=== PATIENT | female | born 1960 | race African-American/Black ===

== ENCOUNTER 2017-03-11 11:06 | Inpatient (IN) | payer OTHER ==
--- NOTE | 2017-03-11 11:23 | PDOC ---
ED Treatment Course - LABORATORY CBC & Chemistry Diagram: 03/11/17 13:40 03/11/17 13:30 Medical Decision Making - Medical Decision Making 03/11/17 15:43 Pt seen by the Advanced Practice Provider under my direct supervision Ancillary studies reviewed I agree with plan as outlined by the Advanced Practice Provider *DC/Admit/Observation/Transfer Diagnosis at time of Disposition: Bradycardia, Dizziness, Elevated CK
[2017-03-11] MEDS ORDERED: SODIUM CHLORIDE 1,000 ML IV STA ×2 (13:00→14:41)
[2017-03-11 13:50] LABS: BASOPHIL 0.6 % (0-2.0); EOSINOPHIL 0.4 % (0-4.5); MCH 31.5 pg (25.7-33.7); MEAN CELL VOLUME 92.5 fl (80-96); MEAN PLT VOLUME 7.2 fl (7.5-11.1); NEUTROPHILS 70.5 % (42.8-82.8); PLATELET COUNT 294 K/MM3 (134-434)
[2017-03-11 14:19] LABS: ALBUMIN 4.4 g/dl (3.4-5.0); ANION GAP 11 (8-16); BILIRUBIN,TOTAL 0.7 mg/dL (0.2-1.0); CALCIUM 9.9 mg/dL (8.5-10.1); CO2 27 mmol/L (21-32); CREATININE 0.9 mg/dL (0.55-1.02); GLUCOSE,RANDOM 83 mg/dL (74-106); MAGNESIUM 2.8 mg/dL (1.8-2.4); SGOT/AST 35 U/L (15-37); SGPT/ALT 29 U/L (12-78); TOT PROT 8.1 g/dl (6.4-8.2)
[2017-03-11 14:22] LABS: ALK PHOS 79 U/L (45-117); CPK 797 IU/L (26-192); TROPONIN I < 0.02 ng/ml (0.00-0.05)
--- NOTE | 2017-03-11 14:40 | PDOC ---
History of Present Illness - General Chief Complaint: Pain, Acute Stated Complaint: FLANK PAIN Time Seen by Provider: 03/11/17 11:22 History Source: Patient Exam Limitations: No Limitations - History of Present Illness Initial Comments: 03/11/17 13:34 56-year-old female with no past medical history presents the ED with complaints of increased depression, fatigue, insomnia, and now feeling dizzy. Patient states although she has not had any recent stressors she is now 3 to grieve her 's which occurred one year ago. Patient states does see a therapist and takes no medication for the above. Patient denies feelings to hurt herself or others or feelings of hopelessness. Patient does state today while standing up at home she started to feel dizzy causing her to fall backwards and striking her left flank area. Patient states did not hit her head nor did she states the but is very tearful here in the ER stating she does not feel good. Timing/Duration: getting worse Severity: moderate Associated Symptoms: reports: loss of appetite, malaise, weakness Past History - Travel Traveled outside of the country in the last 30 days: No - Past Medical History Allergies/Adverse Reactions: Allergies Allergy/AdvReac Type Severity Reaction Status Date / Time No Known Allergies Allergy Verified 03/11/17 11:58 Home Medications: Ambulatory Orders NK [No Known Home Medication] 03/11/17 Anemia: Yes (TAKES IRON PILLS ) Asthma: No Cancer: No Cardiac Disorders: No CVA: No COPD: No CHF: No Dementia: No Diabetes: No GI Disorders: No Disorders: No HTN: No Hypercholesterolemia: Yes (CONTROILLED) Kidney Stones: No Liver Disease: No Seizures: No Thyroid Disease: No - Surgical History Abdominal Surgery: No Appendectomy: No Cardiac Surgery: No Cholecystectomy: No Lung Surgery: No Neurologic Surgery: No Orthopedic Surgery: Yes (Knee sx 1968. Metal brace on hips 2003) - Reproductive History PID: No - Suicide/Smoking/Psychosocial Hx Smoking History: Current every day smoker Have you smoked in the past 12 months: Yes Number of Cigarettes Smoked Daily: 20 If you are a former smoker, when did you quit?: 08/19/2011 Information on smoking cessation initiated: No 'Breaking Loose' booklet given: 07/27/14 Hx Alcohol Use: No Drug/Substance Use Hx: No Substance Use Type: Alcohol, Cocaine Hx Substance Use Treatment: Yes ([facility]) Patient Lives Alone: No Lives with/in: children Review of Systems - Review of Systems Able to Perform ROS?: Yes Constitutional: Yes: Loss of Appetite, Weakness HEENTM: No: Symptoms Reported Respiratory: No: Symptoms reported Cardiac (ROS): Yes: Lightheadedness ABD/GI: No: Symptoms Reported : Yes: Flank Pain (left) Musculoskeletal: No: Symptoms Reported Integumentary: No: Symptoms Reported Neurological: Yes: Weakness, Dizziness Endocrine: No: Symptoms Reported Hematologic/Lymphatic: Yes: Anemia (pt denied medical hx but noted in chart) *Physical Exam - Vital Signs Last Vital Signs Temp Pulse Resp BP Pulse Ox 98.6 F 58 L 18 127/85 100 03/11/17 11:06 03/11/17 11:06 03/11/17 11:06 03/11/17 11:06 03/11/17 11:06 - Physical Exam General Appearance: Yes: Nourished, Appropriately Dressed. No: Apparent Distress HEENT: positive: Normal Voice. negative: Pale Conjunctivae Neck: positive: Normal Thyroid, Supple Respiratory/Chest: positive: Lungs Clear, Normal Breath Sounds. negative: Respiratory Distress, Accessory Muscle Use Cardiovascular: positive: Regular Rhythm, Regular Rate. negative: Murmur Gastrointestinal/Abdominal: positive: Soft. negative: Tenderness Musculoskeletal: negative: CVA Tenderness (R), CVA Tenderness (L) Extremity: positive: Normal Capillary Refill. negative: Pedal Edema Integumentary: positive: Normal Color, Warm, Moist Neurologic: positive: Motor Strength 5/5 (ambulatory). negative: Normal Mood/ Affect (tearful but with good eye contact) Heart Score/ECG Review - History History: Slightly suspicious - Electrocardiogram EKG: Normal - Age Age: 45-65 - Risk Factors Based on the list above the patient has:: No risk factors known - Troponin Troponin: </= normal limit - Score Heart Score - Total: 1 - ECG Impressions Bradycardia: Yes (rate 42.) ED Treatment Course - LABORATORY CBC & Chemistry Diagram: 03/11/17 13:40 03/11/17 13:30 - ADDITIONAL ORDERS Additional order review: Laboratory Results 03/11/17 13:30 Sodium 140 Potassium 4.4 Chloride 102 Carbon Dioxide 27 Anion Gap 11 BUN 11 D Creatinine 0.9 Creat Clearance w eGFR > 60 Random Glucose 83 Calcium 9.9 Magnesium 2.8 H Total Bilirubin 0.7 D AST 35 ALT 29 Alkaline Phosphatase 79 Creatine Kinase 797 H Troponin I < 0.02 Total Protein 8.1 Albumin 4.4 03/11/17 13:40 RBC 4.33 MCV 92.5 MCHC 34.0 RDW 13.0 MPV 7.2 L D Neutrophils % 70.5 Lymphocytes % 23.4 Monocytes % 5.1 Eosinophils % 0.4 Basophils % 0.6 - RADIOLOGY Radiology Studies Ordered: Category Date Time Status CHEST X-RAY PORTABLE* [RAD] Stat Radiology 03/11/17 13:00 Completed - Medications Given in the ED: ED Medications Discontinued Medications Generic Name Dose Route Start Last Admin Trade Name Freq PRN Reason Stop Dose Admin Sodium Chloride 1,000 mls @ 1,000 mls/hr 03/11/17 13:00 03/11/17 13:38 Normal Saline - IV 03/11/17 13:59 1,000 mls/hr ASDIR STA Administration Medical Decision Making - Medical Decision Making 03/11/17 13:38 Patient here with complaints of increasing weakness, dizziness and tearful this. Patient states today was standing up when she became dizzy causing her to fall backwards hitting been table with her left flank region. Patient then had no reproducible pain but appeared tearful and crying with tears. When questioned patient states didn't initially greive her but is now but has been speaking to her therapist about this who she sees every 1- 2 weeks. Patient was ordered for cardiac workup including labs, CBC, comp, mag, urine EKG and chest x-ray along with IV fluids. 03/11/17 14:40 Laboratory Tests 03/11/17 03/11/17 13:30 13:40 WBC 6.0 D Hgb 13.6 Hct 40.0 Plt Count 294 Neutrophils % 70.5 Sodium 140 Potassium 4.4 Chloride 102 Carbon Dioxide 27 Anion Gap 11 Creatinine 0.9 Creat Clearance w eGFR > 60 Calcium 9.9 Magnesium 2.8 H Total Bilirubin 0.7 D AST 35 ALT 29 Alkaline Phosphatase 79 Creatine Kinase 797 H Creatine Kinase Index Pending CK-MB (CK-2) Pending Troponin I < 0.02 Chest x-ray negative. Patient be ordered for second bag of IV fluid for elevation and CKs 10/10/17 15:29 In light of patient's symptom of dizziness, Elevated CK and heart rate ranging anywhere from 40-58 patient will be admitted to telemetry inpatient under Dr. francis with consultation to Dr. Berrios. Laboratory Tests 03/11/17 13:30 TSH 0.22 L *DC/Admit/Observation/Transfer Diagnosis at time of Disposition: Bradycardia, Dizziness, Elevated CK - Discharge Dispostion Admit: Yes
[2017-03-11 15:10] LABS: THYROID STIMULATING HORMONE 0.22 uIU/ml (0.358-3.74)
[2017-03-11 15:51] LABS: URINE APPEARANCE CLEAR; URINE BILIRUBIN NEGATIVE (NEGATIVE); URINE BLOOD 2+ (NEGATIVE); URINE COLOR STRAW; URINE GLUCOSE (UA) NEGATIVE (NEGATIVE); URINE KETONE NEGATIVE (NEGATIVE); URINE NITRITE NEGATIVE (NEGATIVE); URINE PROTEIN NEGATIVE (NEGATIVE); URINE UROBILINOGEN NEGATIVE mg/dL (0.2-1.0)
[2017-03-11 15:56] LABS: URINE HYALINE CAST 1 /lpf; URINE RBC 2 /hpf (0-3); URINE WBC 14 /hpf (3-5)
--- NOTE | 2017-03-11 16:06 | HP ---
Admitting History and Physical - Admission History of Present Illness: 56-year-old female with no past medical history presents the ED with complaints of increased depression, fatigue, insomnia, and now feeling dizzy. Patient states although she has not had any recent stressors she is now 3 to grieve her 's which occurred one year ago. Patient states does see a therapist and takes no medication for the above. Patient denies feelings to hurt herself or others or feelings of hopelessness. Patient does state today while standing up at home she started to feel dizzy causing her to fall backwards and striking her left flank area. Patient states did not hit her head nor did she states the but is very tearful here in the ER stating she does not feel good. per patient for last one week feeling very tired no energy today she got up the bed and felt dizzy and fell no loss of consciousnes just hit her flank she claims that she sometime experiences palpitations which are intermittent History Source: Patient - Past Medical History ...LMP: 09/02/10 - Smoking History Smoking history: Current every day smoker Have you smoked in the past 12 months: Yes Aproximately how many cigarettes per day: 20 If you are a former smoker, when did you quit?: 08/19/2011 - Alcohol/Substance Use Hx Alcohol Use: No Home Medications - Allergies Allergies/Adverse Reactions: Allergies Allergy/AdvReac Type Severity Reaction Status Date / Time No Known Allergies Allergy Verified 03/11/17 11:58 - Home Medications Home Medications: Ambulatory Orders NK [No Known Home Medication] 03/11/17 Family Disease History - Family Disease History Family Disease History: Other: Father (alcoholic), Mother (alcoholic, from leukemia) Review of Systems - Review of Systems Cardiovascular: reports: No Symptoms Respiratory: reports: No Symptoms Physical Examination Vital Signs: Vital Signs Temperature 98.6 F 03/11/17 11:06 Pulse Rate 58 L 03/11/17 11:06 Respiratory Rate 18 03/11/17 11:06 Blood Pressure 127/85 03/11/17 11:06 O2 Sat by Pulse Oximetry (%) 100 03/11/17 11:06 Constitutional: Yes: Calm, Thin Cardiovascular: Yes: Regular Rate and Rhythm, Bradycardia, S1, S2 Respiratory: Yes: CTA Bilaterally Gastrointestinal: Yes: Normal Bowel Sounds, Soft Edema: No Neurological: Yes: Alert, Oriented Problem List - Problems (1) Bradycardia Assessment/Plan: check tsh echo tele cardio Code(s): R00.1 - BRADYCARDIA, UNSPECIFIED (2) Dizziness Assessment/Plan: carotid doppler r/o arrythmia Code(s): R42 - DIZZINESS AND GIDDINESS
[2017-03-11 18:23] VITALS: BMI 22.8
[2017-03-11] MEDS ORDERED: FLU VACCINE QUAD 60 MCG/0.5 ML (MDV 17-18) IM ONE (18:23)
[2017-03-11 19:18] LABS: URINE LEUK ESTERASE 3+ (NEGATIVE)
--- NOTE | 2017-03-11 21:41 | EKG ---
Test Reason : Blood Pressure : / mmHG Vent. Rate : 042 BPM Atrial Rate : 042 BPM P-R Int : 170 ms QRS Dur : 084 ms QT Int : 486 ms P-R-T Axes : 080 026 012 degrees QTc Int : 405 ms MARKED SINUS BRADYCARDIA BASELINE ARTIFACT NONSPECIFIC T WAVE ABNORMALITY ABNORMAL ECG NO PREVIOUS ECGS AVAILABLE REPEAT EKG IF CLINICALLY INDICATED Confirmed by JOSEFA SIMMS MD ([id number]) on 03/11/2017 9:41:33 PM Referred By: Confirmed By:JOSEFA SIMMS MD
[2017-03-12] MEDS ORDERED: ACETAMINOPHEN 325 MG TABLET (FP) PO ONE (02:30)
[2017-03-12 06:35] LABS: MCH 31.3 pg (25.7-33.7); MCHC 33.8 g/dl (32.0-36.0); MEAN CELL VOLUME 92.4 fl (80-96); MEAN PLT VOLUME 7.4 fl (7.5-11.1); PLATELET COUNT 235 K/MM3 (134-434); RDW 13.1 % (11.6-15.6); WHITE BLOOD COUNT 5.6 K/mm3 (4.0-10.0)
[2017-03-12 07:23] LABS: ALBUMIN 3.1 g/dl (3.4-5.0); ANION GAP 8 (8-16); CALCIUM 8.4 mg/dL (8.5-10.1); CO2 24 mmol/L (21-32); CREATININE 0.8 mg/dL (0.55-1.02); GLUCOSE,RANDOM 89 mg/dL (74-106); MAGNESIUM 2.4 mg/dL (1.8-2.4); SGOT/AST 25 U/L (15-37); SGPT/ALT 21 U/L (12-78); TOT PROT 5.8 g/dl (6.4-8.2)
[2017-03-12 07:28] LABS: ALK PHOS 57 U/L (45-117); BILIRUBIN,TOTAL 0.5 mg/dL (0.2-1.0); CHOLESTEROL 195 mg/dL (50-200); PHOSPHOROUS 3.1 mg/dL (2.5-4.9)
--- NOTE | 2017-03-12 08:35 | PN ---
Progress Note, Physician History of Present Illness: feels better no cp - Objective Vital Signs: Vital Signs Temperature 98.7 F 03/12/17 06:00 Pulse Rate 67 03/12/17 06:00 Respiratory Rate 17 03/12/17 06:00 Blood Pressure 111/74 03/12/17 06:00 O2 Sat by Pulse Oximetry (%) 97 03/11/17 21:00 Cardiovascular: Yes: Bradycardia, S1, S2 Respiratory: Yes: Regular, CTA Bilaterally Gastrointestinal: Yes: Normal Bowel Sounds, Soft Neurological: Yes: Alert, Oriented Labs: CBC, BMP 03/12/17 06:05 03/12/17 06:05 Problem List - Problems (1) Bradycardia Assessment/Plan: TELEMTRY--RATE DOWN TO 30'S CARDIO ECHO FOLLOW EKG HOLTER TSH--LOW--.17 Code(s): R00.1 - BRADYCARDIA, UNSPECIFIED (2) Dizziness Assessment/Plan: MAYBE DUE TO ABOVE CT OF HEAD Code(s): R42 - DIZZINESS AND GIDDINESS (3) Elevated CK Assessment/Plan: REPEAT MAYBE DUE TO FALL Code(s): R74.8 - ABNORMAL LEVELS OF OTHER SERUM ENZYMES (4) Hyperthyroidism Assessment/Plan: T4 AND T3 Code(s): E05.90 - THYROTOXICOSIS, UNSP WITHOUT THYROTOXIC CRISIS OR STORM
[2017-03-12 09:33] LABS: CPK 612 IU/L (26-192); TROPONIN I < 0.02 ng/ml (0.00-0.05)
[2017-03-12 10:28] LABS: FREE T4 1.02 ng/dl (0.76-1.46)
--- NOTE | 2017-03-12 10:54 | EKG ---
Test Reason : Blood Pressure : / mmHG Vent. Rate : 051 BPM Atrial Rate : 051 BPM P-R Int : 188 ms QRS Dur : 094 ms QT Int : 438 ms P-R-T Axes : 055 036 030 degrees QTc Int : 403 ms SINUS BRADYCARDIA INCOMPLETE RIGHT BUNDLE BRANCH BLOCK BORDERLINE ECG WHEN COMPARED WITH ECG OF 11-MAR-2017 14:32, NO SIGNIFICANT CHANGE WAS FOUND Confirmed by LEVAR RICK, SKYE ([id number]) on 03/12/2017 10:53:53 AM Referred By: FORREST HOFF Confirmed By:SKYE CRISTOBAL MD
--- NOTE | 2017-03-12 15:02 | CON.CARD ---
Consult Consult Specialty:: cardiology Referred by:: rubén Reason for Consultation:: dizziness - History of Present Illness Chief Complaint: dizziness History of Present Illness: 56-year-old female with no past medical history presents the ED with dizziness and fall. As per patient, she was walking with her friend and fell backwards and hit her flank. Denies any chest pain or palpitations. No sob. No pnd, orthopnea, or edema. No symptoms since presentation. Has been depressed recently due to 1 year anniversary since 's and grieving. complaints of increased depression, fatigue, insomnia, and now feeling dizzy. - History Source History Provided By: Patient - Past Medical History ...LMP: 09/02/10 - Alcohol/Substance Use Hx Alcohol Use: No - Smoking History Smoking history: Current every day smoker Have you smoked in the past 12 months: Yes Aproximately how many cigarettes per day: 20 If you are a former smoker, when did you quit?: 08/19/2011 Home Medications - Allergies Allergies/Adverse Reactions: Allergies Allergy/AdvReac Type Severity Reaction Status Date / Time No Known Allergies Allergy Verified 03/11/17 11:58 - Home Medications Home Medications: Ambulatory Orders NK [No Known Home Medication] 03/11/17 Family Disease History - Family Disease History Family Disease History: Other: Father (alcoholic), Mother (alcoholic, from leukemia) Vital Signs: Vital Signs Temperature 98.2 F 03/12/17 08:00 Pulse Rate 64 03/12/17 08:00 Respiratory Rate 14 03/12/17 09:00 Blood Pressure 116/54 03/12/17 08:00 O2 Sat by Pulse Oximetry (%) 97 03/12/17 09:00 Constitutional: Yes: No Distress Neck: Yes: WNL Respiratory: Yes: CTA Bilaterally Gastrointestinal: Yes: Normal Bowel Sounds, Soft Cardiovascular: Yes: Regular Rate and Rhythm JVD: No Carotid Bruit: No Heart Sounds: Yes: S1, S2 Murmur: No: Systolic Murmur Extremities: Yes: WNL - Other Data Labs, Other Data: CBC, BMP 03/12/17 06:05 03/12/17 06:05 Troponin, BNP 03/12/17 03/12/17 06:05 06:05 Troponin I < 0.02 Cancelled Troponin, BNP 03/12/17 03/12/17 06:05 06:05 Troponin I < 0.02 Cancelled Imaging - Results Chest X-ray: Report Reviewed Cat Scan: Report Reviewed EKG: Image Reviewed Problem List - Problems (1) Dizziness Code(s): R42 - DIZZINESS AND GIDDINESS Assessment/Plan 56-year-old female with no past medical history presents the ED with dizziness and fall 1) Dizziness/bradycardia -Has been asymptomatic since admission. CT head no acute m/s/b Carotid duplex no stenosis TSH abnormal f/u with pmd EKG with sinus bradycardia at 42bpm, nl axis, nl st segments. Tele sinus sonia but no pauses. Walked patient in hallway and HR went to 85 with mild walking. Plan for echocardiogram
[2017-03-12 19:54] LABS: CPK 652 IU/L (26-192); TROPONIN I < 0.02 ng/ml (0.00-0.05)
[2017-03-13] MEDS: ALBUTEROL SO4 2.5/IPRATROPIUM 0.5 INH SOL 3 ML VIAL.NEB. NEB SCH ×3 (00:07→11:31)
--- NOTE | 2017-03-13 08:24 | DS ---
Physical Examination Vital Signs: Vital Signs Temperature 98.7 F 03/13/17 05:30 Pulse Rate 47 L 03/13/17 05:30 Respiratory Rate 20 03/13/17 05:30 Blood Pressure 103/50 03/13/17 05:30 O2 Sat by Pulse Oximetry (%) 98 03/12/17 21:00 Findings/Remarks: NO COMPLAINTS STATES FEELS WELL Cardiovascular: Yes: Regular Rate and Rhythm Respiratory: Yes: Regular, CTA Bilaterally Gastrointestinal: Yes: Normal Bowel Sounds, Soft Labs: CBC, BMP 03/12/17 06:05 03/12/17 06:05 Discharge Summary Reason For Visit: DIZZINESS,BRADYCARDIA Current Active Problems Bradycardia (Acute) Dizziness (Acute) Elevated CK (Acute) Hyperthyroidism (Acute) Hospital Course: 56-year-old female with no past medical history presents the ED with complaints of increased depression, fatigue, insomnia, and now feeling dizzy. Patient states although she has not had any recent stressors she is now 3 to grieve her 's which occurred one year ago. Patient states does see a therapist and takes no medication for the above. Patient denies feelings to hurt herself or others or feelings of hopelessness. Patient does state today while standing up at home she started to feel dizzy causing her to fall backwards and striking her left flank area. Patient states did not hit her head nor did she states the but is very tearful here in the ER stating she does not feel good. per patient for last one week feeling very tired no energy today she got up the bed and felt dizzy and fell no loss of consciousnes just hit her flank she claims that she sometime experiences palpitations which are intermittent History Source: Patient - Past Medical History ...LMP: 09/02/10 - Smoking History Smoking history: Current every day smoker Have you smoked in the past 12 months: Yes Aproximately how many cigarettes per day: 20 If you are a former smoker, when did you quit?: 08/19/2011 - Alcohol/Substance Use Hx Alcohol Use: No - Problems (1) Bradycardia Assessment/Plan: TELEMTRY--RATE DOWN TO 30'S--asymptomatic AWAIT HOLTER CARDIO NOTED ECHO NL LV TSH--LOW--.17 Code(s): R00.1 - BRADYCARDIA, UNSPECIFIED (2) Dizziness Assessment/Plan: MAYBE DUE TO ABOVE CT OF HEAD NEGATIVE Code(s): R42 - DIZZINESS AND GIDDINESS (3) Elevated CK Assessment/Plan: REPEAT MAYBE DUE TO FALL Code(s): R74.8 - ABNORMAL LEVELS OF OTHER SERUM ENZYMES (4) Hyperthyroidism Assessment/Plan: T4 AND T3 Code(s): E05.90 - THYROTOXICOSIS, UNSP WITHOUT THYROTOXIC CRISIS OR STORM PT WILL NEED FOLLOW UP WITH PMD AND MONITORING OUTPATIENT--THIS WAS DISCUSSED WITH THE PATIENT Condition: Improved - Instructions Diet, Activity, Other Instructions: FOLLOW UP WITH YOUR DOCTOR YOU WILL NEED FURTHER FOLLOW UP OF LABS AND TESTING ON YOUR THYROID AND CK YOU WILL NEED TO FOLLOW UP WITH CARDIOLOGY Disposition: HOME - Home Medications Comprehensive Discharge Medication List: Ambulatory Orders NK [No Known Home Medication] 03/11/17
--- NOTE | 2017-03-13 11:55 | EKG ---
Test Reason : Blood Pressure : / mmHG Vent. Rate : 061 BPM Atrial Rate : 061 BPM P-R Int : 182 ms QRS Dur : 092 ms QT Int : 410 ms P-R-T Axes : 045 021 041 degrees QTc Int : 412 ms SINUS RHYTHM WITH MARKED SINUS ARRHYTHMIA OTHERWISE NORMAL ECG WHEN COMPARED WITH ECG OF 12-MAR-2017 08:43, NO SIGNIFICANT CHANGE WAS FOUND Confirmed by MARTA WOOD MD ([id number]) on 03/13/2017 11:55:29 AM Referred By: Confirmed By:MARTA WOOD MD
--- NOTE | 2017-03-13 12:13 | HOL ---
Hook-up date: 2017-03-12 12:07:00 Duration: 21:46:00 Test Indications: Medications: 33734 QRS complexes 97 Ventricular ectopics which represent <1 % of total QRS comp. 20 Supraventricular ectopics which represent <1 % of total QRS comp. * Paced QRS complexs which represent % of total QRS comp. * % of Time Classified as Noise VENTRICULAR ECTOPY 97 Isolated 0 Bigeminal Cycles 0 Couplets 0 Runs 0 Beats in Runs * Beats LONGEST at * BPM at :: -- * Beats FASTEST at * BPM at :: -- SUPRAVENTRICULAR ECTOPY 20 Isolated 0 Couplets 0 Runs 0 Beats in Runs * Beats LONGEST at * BPM at :: -- * Beats FASTEST at * BPM at :: -- HEART RATES 37 MIN at 02:56:18 2017-03-13 64 AVG 101 MAX at 07:23:43 2017-03-13 LONGEST RR 2.064 secs at 09:49:32 2017-03-13 SCANNED BY HSERRI MUNOZ ON 03/13/17 1. Baseline sinus rhythm with avg hr 64 and range 37-101. 2. No significant bradycardia/pauses. 3. Rare isolated PVCs and PACs. 4. No VT, VF, afib, aflutter, svt. 5. No diary submitted. Confirmed by NINA RICK, MARTA ([id number]) on 03/13/2017 12:13:09 PM Referred By: LESLY MARTINEZ DR Overread By: MARTA WOOD MD
--- NOTE | 2017-03-13 12:30 | PN ---
Progress Note, Physician Chief Complaint: Some c/o chest pain last night described as chest pressure in center of chest. Like someone squeezing. Had chest CT negative for PE Tele: sinus bradycardia which responds to ambulation to 80s - Current Medication List Current Medications: Active Medications Albuterol/Ipratropium (Duoneb -) 1 amp NEB QIDR EBEN Last Admin: 03/13/17 11:31 Dose: Not Given - Objective Vital Signs: Vital Signs Temperature 98.2 F 03/13/17 08:00 Pulse Rate 62 03/13/17 08:00 Respiratory Rate 20 03/13/17 08:00 Blood Pressure 114/64 03/13/17 08:00 O2 Sat by Pulse Oximetry (%) 98 03/13/17 08:00 Constitutional: Yes: No Distress Cardiovascular: Yes: Regular Rate and Rhythm, S2. No: Bruit, JVD Respiratory: Yes: CTA Bilaterally Gastrointestinal: Yes: Normal Bowel Sounds, Soft Edema: No Labs: CBC, BMP 03/12/17 06:05 03/12/17 06:05 Problem List - Problems (1) Dizziness Code(s): R42 - DIZZINESS AND GIDDINESS (2) Bradycardia Code(s): R00.1 - BRADYCARDIA, UNSPECIFIED Assessment/Plan 56-year-old female with no past medical history presents the ED with dizziness and fall 1) Dizziness/bradycardia -Has been asymptomatic since admission. CT head no acute m/s/b Carotid duplex no stenosis TSH abnormal f/u with pmd EKG with sinus bradycardia at 42bpm, nl axis, nl st segments. Tele sinus sonia but no pauses. Walked patient in hallway and HR went to 85 with mild walking. Echocardiogram nl lvef and mild TR with trace to mild MR 2) Chest pain Consider stress testing. Would exercise during test to document chronotropic response to exercise
[2017-03-13 12:56] LABS: BASOPHIL 0.4 % (0-2.0); EOSINOPHIL 1.6 % (0-4.5); MCH 31.1 pg (25.7-33.7); MCHC 33.7 g/dl (32.0-36.0); MEAN CELL VOLUME 92.1 fl (80-96); MEAN PLT VOLUME 7.3 fl (7.5-11.1); NEUTROPHILS 54.6 % (42.8-82.8); PLATELET COUNT 270 K/MM3 (134-434); RDW 12.9 % (11.6-15.6); WHITE BLOOD COUNT 4.3 K/mm3 (4.0-10.0)
[2017-03-13 13:17] LABS: CPK 550 IU/L (26-192); TROPONIN I < 0.02 ng/ml (0.00-0.05)
[2017-03-13 14:49] VITALS: BP 97/51; PULSE 70; TEMP 98.8
== END 2017-03-13 16:56 | disposition home or self-care (01) | DRG 201 ==
LOC: JER 11:06 → JERBED 15:31 → J4W 18:26
PROVIDERS: ADMIT Student in an Organized Health Care Education/Training Program; ATTEND Student in an Organized Health Care Education/Training Program
DX: R00.1 Bradycardia, unspecified (principal); E78.5 Hyperlipidemia, unspecified; R42 Dizziness and giddiness; F12.10 Cannabis abuse, uncomplicated; E05.90 Thyrotoxicosis, unspecified without thyrotoxic crisis or storm; R74.8 Abnormal levels of other serum enzymes; R07.9 Chest pain, unspecified
CPT/HCPCS: 36415; 70450-TC; 71010-TC; 71275-TC; 78452-TC; 80053; 80061; 81003; 81015; 82550; 82553; 83721; 83735; 84100; 84439; 84443; 84481; 84484; 85025; 85027; 90688; 93005; 93010; 93017; 93225; 93226; 93306-TC; 93880-TC; 94640; 97116-GP; 97161-GP; 99285-25; A9502; G0008

== ENCOUNTER 2018-03-07 14:24 | Inpatient (IN) | payer OTHER ==
[2018-03-07 16:12] VITALS: BMI 20.5
--- NOTE | 2018-03-07 20:25 | HP ---
<Viet Willingham - Last Filed: 03/07/18 20:20> CIWA Score - CIWA Score Nausea/Vomitin-Mild Nausea/No Vomiting Muscle Tremors: 3 Anxiety: 4-Mod. Anxious/Guarded Agitation: 4-Moderately Restless Paroxysmal Sweats: 3 Orientation: 2-Disoriented Date<2 days Tacttile Disturbances: 0-None Auditory Disturbances: 0-None Visual Disturbances: 0-None Headache: 0-None Present CIWA-Ar Total Score: 17 Admission [facility] - HPI Chief Complaint: SEEKING DETOX FOR C/O WITHDRAWAL SX'S FROM ALCOHOL Allergies/Adverse Reactions: Allergies Allergy/AdvReac Type Severity Reaction Status Date / Time No Known Allergies Allergy Verified 03/07/18 21:00 History of Present Illness: 57 Y.O FEMALE WITH HX/O ALCOHOL AND COCAINE DEPENDENCE HERE FOR DETOX. CLIENT IS KNOWN TO THIS PROGRAM. LAST ADMISSION SEVERAL YEARS AGO. SHE DENIES ANY INPATIENT TXMENT SINCE. SHE IS SELF REFERRED. REPORTS LONGEST CLEAN TIME 2 YEARS SELF SUSTAINED. SHE REPORTS DRINKING 3 SIX PACKS OF BEER DAILY. SHE REPORTS HER LAST DRINK WAS LAST NIGHT. DENIES HX/O SEIZURE, AVH, DT'S, PAST/ PRESENT SI/HI/ATTEMPTS. SHE DENIES PMHX BUT DOES REPORTS HX/O DEPRESSION. Exam Limitations: No Limitations - Ebola screening Have you traveled outside of the country in the last 21 days: No (N) Have you had contact with anyone from an Ebola affected area: No Have you been sick,other than usual withdrawal symptoms: No Do you have a fever: No - Review of Systems Constitutional: Chills, Loss of Appetite, Malaise, Night Sweats, Changes in sleep, Unintentional Wgt. Loss EENT: reports: Dental Problems (BOTH DENTURES), Throat Pain Respiratory: reports: No Symptoms reported Cardiac: reports: No Symptoms Reported GI: reports: Diarrhea, Poor Appetite, Poor Fluid Intake, Abdominal cramping : reports: No Symptoms Reported Musculoskeletal: reports: Neck Pain, Other (R SHOULDER PAIN) Integumentary: reports: No Symptoms Reported Neuro: reports: No Symptoms reported Endocrine: reports: No Symptoms Reported Hematology: reports: No Symptoms Reported Psychiatric: reports: Anxious, Depressed Other Systems: Reviewed and Negative Patient History - Patient Medical History Hx Anemia: Yes (TAKING IRON PILLS) Hx Asthma: No Hx Chronic Obstructive Pulmonary Disease (COPD): No Hx Cancer: No Hx Cardiac Disorders: No Hx Congestive Heart Failure: No Hx Hypertension: No Hx Hypercholesterolemia: Yes Hx Pacemaker: No HX Cerebrovascular Accident: No Hx Seizures: No Hx Dementia: No Hx Diabetes: No Hx Gastrointestinal Disorders: No Hx Liver Disease: No Hx Genitourinary Disorders: No Hx Sexually Transmitted Disorders: No Hx Renal Disease (ESRD): No Hx Thyroid Disease: No Hx Human Immunodeficiency Virus (HIV): No Hx Hepatitis C: No Hx Depression: Yes Hx Suicide Attempt: No Hx Bipolar Disorder: No Hx Schizophrenia: No - Patient Surgical History Past Surgical History: Yes Hx Neurologic Surgery: No Hx Cataract Extraction: No Hx Cardiac Surgery: No Hx Lung Surgery: No Hx Breast Surgery: No Hx Breast Biopsy: No Hx Abdominal Surgery: No Hx Appendectomy: No Hx Cholecystectomy: No Hx Genitourinary Surgery: No Hx Section: Yes (1974 and 1979) Hx Orthopedic Surgery: Yes (Knee sx 1968. Metal brace on hips 2003) Anesthesia Reaction: No - PPD History Previous Implant?: Yes Documented Results: Negative w/proof Implanted On Prior [facility] Admission?: Yes Date: 08/13/13 Results: 0 mm PPD to be Administered?: Yes - Reproductive History Last Menstrual Period: 09/02/10 LMP comment: MENAPAUSAL Patient : No (NEG [facility] [place]) - Smoking Cessation Smoking history: Current every day smoker Have you smoked in the past 12 months: Yes Aproximately how many cigarettes per day: 20 Cigars Per Day: 0 Hx Chewing Tobacco Use: No Initiated information on smoking cessation: Yes 'Breaking Loose' booklet given: 03/07/18 - Substance & Tx. History Hx Alcohol Use: Yes Hx Substance Use: Yes Substance Use Type: Alcohol, Cocaine Hx Substance Use Treatment: Yes ([facility]) - Substances Abused BEER Route: Oral Frequency: Daily Amount used: 3-6 PACKS Age of first use: 13 Date of Last Use: 03/06/18 CRACK Route: Smoking Frequency: Daily Amount used: $300 Age of first use: 31 Date of Last Use: 03/07/18 Family Disease History - Family Disease History Family Disease History: Other: Father (alcoholic), Mother (alcoholic, from leukemia) Admission Physical Exam [facility] - Vital Signs Vital Signs: Vital Signs - 24 hr 03/07/18 16:05 Temperature 99.2 F Pulse Rate 81 Respiratory 16 Rate Blood Pressure 119/77 - Physical General Appearance: Yes: Appropriately Dressed, Moderate Distress, Tremorous, Anxious, Other (SHIVERING) HEENTM: Yes: EOMI, Normocephalic, Normal Voice, LANI, Pharynx Normal, Other ( [place] UPPER/LOWER) Respiratory: Yes: Chest Non-Tender, Lungs Clear, Normal Breath Sounds, No Respiratory Distress, No Accessory Muscle Use Neck: Yes: No masses,lesions,Nodules, Supple, Trachea in good position Breast: Yes: Breast Exam Deferred Cardiology: Yes: Regular Rhythm, Regular Rate, S1, S2 Abdominal: Yes: Normal Bowel Sounds, Non Tender, Flat, Soft Genitourinary: Yes: Other (NO C/O) Back: Yes: Normal Inspection Musculoskeletal: Yes: full range of Motion, Gait Steady Extremities: Yes: Normal Capillary Refill, Normal Range of Motion, Non-Tender, Tremors Neurological: Yes: Alert, Motor Strength 5/5, Disoriented (TO DATE), Depressed Affect Integumentary: Yes: Dry, Warm Lymphatic: Yes: Within Normal Limits - Diagnostic (1) Alcohol dependence with uncomplicated withdrawal Current Visit: Yes Status: Acute (2) Depressed affect Current Visit: Yes Status: Acute (3) At risk for dehydration due to poor fluid intake Current Visit: Yes Status: Acute (4) Cocaine dependence Current Visit: Yes Status: Acute (5) Drug-induced mood disorder Current Visit: Yes Status: Suspected (6) Nicotine dependence Current Visit: Yes Status: Chronic Qualifiers: Nicotine product type: cigarettes Substance use status: uncomplicated Qualified Code(s): F17.210 - Nicotine dependence, cigarettes, uncomplicated (7) History of anemia Current Visit: Yes Status: Chronic Cleared for Admission [facility] - Detox or Rehab [facility] Level of Care: Medically Managed Detox Regimen/Protocol: Librium Claeared for Rehab Admission: No [facility] Breath Alcohol Content Breath Alcohol Content: 0 Urine Pregancy Test - Result Urine Test Results: Negative- NO Line Present Urine Drug Screen - Results Drug Screen Negative: No Urine Drug Screen Results: LILIANA-Cocaine, BAR-Barbiturates <Lorena Weaver - Last Filed: 03/08/18 15:26> Admission Physical Exam [facility] - Vital Signs Vital Signs: Vital Signs - 24 hr 03/07/18 03/07/18 03/08/18 16:05 23:36 00:30 Temperature 99.2 F 98.2 F Pulse Rate 81 69 Respiratory 16 18 16 Rate Blood Pressure 119/77 151/68 03/08/18 03/08/18 03/08/18 03:30 06:00 10:43 Temperature 97.9 F 98.2 F Pulse Rate 80 72 Respiratory 16 16 18 Rate Blood Pressure 123/85 111/76
[2018-03-07] MEDS ORDERED: MAG HYDROX/AL HYDROX/SIMETH 30 ML UNIT-DOSE CUP PO PRN (20:38)
[2018-03-07] MEDS ORDERED: MENTHOL/PHENOL 1 EACH UD MM PRN (20:38)
[2018-03-07] MEDS ORDERED: chlordiazePOXIDE HCL 25 MG CAPSULE PO PRN (20:38)
[2018-03-07] MEDS ORDERED: guaiFENesin/D-METHORPHAN HB 10 ML UNIT-DOSE CUPS PO PRN (20:38)
[2018-03-07] MEDS ORDERED: P-EPHED 60MG/TRIPROLIDI 2.5MG TABLET PO PRN (20:38)
[2018-03-07] MEDS ORDERED: NICOTINE POLACRILEX 2 MG GUM BC PRN (20:38)
[2018-03-07] MEDS ORDERED: LOPERAMIDE HCL 2 MG CAPSULE PO PRN (20:38)
[2018-03-07] MEDS ORDERED: hydrOXYzine PAMOATE 50 MG CAPSULE (FP) PO PRN (20:38)
[2018-03-07] MEDS ORDERED: MAGNESIUM HYDROX 2400MG/30ML ORAL SUSPENSION 30 ML CUP PO PRN (20:38)
[2018-03-07] MEDS ORDERED: IBUPROFEN 400 MG TABLET (FP) PO PRN (20:38)
[2018-03-07] MEDS ORDERED: MAGNESIUM CITRATE 300 ML BOTTLE PO PRN (20:38)
[2018-03-07] MEDS: ACETAMINOPHEN 325 MG TABLET (FP) PO PRN (22:46)
[2018-03-07] MEDS: THIAMINE HCL 100 MG TABLET (FP) PO SCH (22:47)
[2018-03-08] MEDS: chlordiazePOXIDE HCL 25 MG CAPSULE PO SCH ×3 (00:17→10:26)
[2018-03-08] MEDS: PRENATAL VITAMINS W/ FOLIC ACID TABLET (FP) PO SCH (10:24)
[2018-03-08] MEDS: ACETAMINOPHEN 325 MG TABLET (FP) PO PRN (10:25)
[2018-03-08] MEDS: NICOTINE 21 MG/24 HOURS TOPICAL PATCH TD SCH (10:26)
[2018-03-08 10:44] LABS: HEMATOCRIT 37.3 % (32.4-45.2); HEMOGLOBIN 12.6 GM/dL (10.7-15.3); MCH 32.7 pg (25.7-33.7); MCHC 33.7 g/dl (32.0-36.0); MEAN CELL VOLUME 97.1 fl (80-96); MEAN PLT VOLUME 7.4 fl (7.5-11.1); PLATELET COUNT 290 K/MM3 (134-434); RBC 3.84 M/mm3 (3.60-5.2); RDW 13.6 % (11.6-15.6); WHITE BLOOD COUNT 3.9 K/mm3 (4.0-10.0)
[2018-03-08 11:21] LABS: URINE APPEARANCE SLCLOUDY; URINE BILIRUBIN NEGATIVE (<2.0 mg/dL); URINE COLOR AMBER; URINE GLUCOSE (UA) NEGATIVE (NEGATIVE); URINE KETONE NEGATIVE (NEGATIVE); URINE LEUK ESTERASE NEGATIVE (NEGATIVE); URINE NITRITE POSITIVE (NEGATIVE); URINE PROTEIN NEGATIVE (NEGATIVE); URINE UROBILINOGEN NEGATIVE mg/dL (0.2-1.0)
[2018-03-08 11:45] LABS: ALK PHOS 61 U/L (45-117); ANION GAP 7 MMOL/L (8-16); BILIRUBIN,TOTAL 0.3 mg/dL (0.2-1); BLOOD UREA NITROGEN 16 mg/dL (7-18); CALCIUM 8.6 mg/dL (8.5-10.1); CHLORIDE 108 mmol/L (98-107); CO2 26 mmol/L (21-32); CREATININE 0.9 mg/dL (0.55-1.3); GLUCOSE,RANDOM 106 mg/dL (74-106); POTASSIUM 4.1 mmol/L (3.5-5.1); SGOT/AST 31 U/L (15-37); SGPT/ALT 23 U/L (13-61); SODIUM 141 mmol/L (136-145)
[2018-03-08 11:57] LABS: EPI CELLS RARE /HPF (FEW); URINE BACTERIA MANY /hpf (NONE SEEN); URINE MUCUS RARE
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
[2018-03-08] MEDS ORDERED: diazePAM 5 MG TABLET PO ONE (14:29)
--- NOTE | 2018-03-08 14:32 | PN ---
[facility] CIWA - CIWA Score Nausea/Vomitin-Mild Nausea/No Vomiting Muscle Tremors: 4-Moderate,w/Arms Extend Anxiety: 3 Agitation: 3 Paroxysmal Sweats: 1-Minimal Palms Moist Orientation: 0-Oriented Tacttile Disturbances: 0-None Auditory Disturbances: 0-None Visual Disturbances: 0-None Headache: 0-None Present CIWA-Ar Total Score: 12 [facility] Progress Note (SOAP) Subjective: patient discussed about trouble tolerate librium change alcohol detox regimen to valium begin 2 pm with prn till 03/10/18
[2018-03-08] MEDS: diazePAM 5 MG TABLET PO SCH ×2 (15:11→22:59)
[2018-03-08] MEDS: THIAMINE HCL 100 MG TABLET (FP) PO SCH (22:59)
[2018-03-08] MEDS: MELATONIN 5 MG TABLETS PO PRN (23:00)
[2018-03-08] MEDS ORDERED: chlordiazePOXIDE HCL 25 MG CAPSULE PO SCH (23:00)
[2018-03-09] MEDS: diazePAM 5 MG TABLET PO SCH ×3 (06:11→22:19)
[2018-03-09] MEDS: ACETAMINOPHEN 325 MG TABLET (FP) PO PRN (06:12)
[2018-03-09] MEDS: diazePAM 5 MG TABLET PO PRN (10:39)
[2018-03-09] MEDS: PRENATAL VITAMINS W/ FOLIC ACID TABLET (FP) PO SCH (10:39)
[2018-03-09] MEDS: NICOTINE 21 MG/24 HOURS TOPICAL PATCH TD SCH (10:39)
--- NOTE | 2018-03-09 11:11 | EKG ---
Test Reason : Blood Pressure : / mmHG Vent. Rate : 061 BPM Atrial Rate : 061 BPM P-R Int : 178 ms QRS Dur : 094 ms QT Int : 442 ms P-R-T Axes : 047 060 055 degrees QTc Int : 444 ms NORMAL SINUS RHYTHM INCOMPLETE RIGHT BUNDLE BRANCH BLOCK BORDERLINE ECG WHEN COMPARED WITH ECG OF 12-MAR-2017 18:21, NO SIGNIFICANT CHANGE WAS FOUND Confirmed by MARKOS WOODWARD MD ([id number]) on 03/09/2018 11:11:00 AM Referred By: Confirmed By:MARKOS WOODWARD MD
[2018-03-09] MEDS: LIDOCAINE 5% TOPICAL PATCH TP SCH (11:42)
--- NOTE | 2018-03-09 18:01 | PN ---
S CIWA - CIWA Score Nausea/Vomitin-No Nausea/No Vomiting Muscle Tremors: 3 Anxiety: 2 Agitation: 2 Paroxysmal Sweats: 1-Minimal Palms Moist Orientation: 0-Oriented Tacttile Disturbances: 1-Very Mild Itch/Numbness Auditory Disturbances: 1-Very Mild Visual Disturbances: 0-None Headache: 0-None Present CIWA-Ar Total Score: 10 [facility] Progress Note (SOAP) Subjective: sweat tremor restlessness body ache Objective: 03/09/18 18:02 Vital Signs Temperature 97.4 F L 03/09/18 17:50 Pulse Rate 75 03/09/18 17:50 Respiratory Rate 18 03/09/18 17:50 Blood Pressure 112/63 03/09/18 17:50 O2 Sat by Pulse Oximetry (%) Laboratory Last Values WBC 3.9 K/mm3 (4.0-10.0) L 03/08/18 07:40 RBC 3.84 M/mm3 (3.60-5.2) 03/08/18 07:40 Hgb 12.6 GM/dL (10.7-15.3) 03/08/18 07:40 Hct 37.3 % (32.4-45.2) 03/08/18 07:40 MCV 97.1 fl (80-96) H 03/08/18 07:40 MCH 32.7 pg (25.7-33.7) 03/08/18 07:40 MCHC 33.7 g/dl (32.0-36.0) 03/08/18 07:40 RDW 13.6 % (11.6-15.6) 03/08/18 07:40 Plt Count 290 K/MM3 (134-434) 03/08/18 07:40 MPV 7.4 fl (7.5-11.1) L 03/08/18 07:40 Sodium 141 mmol/L (136-145) 03/08/18 07:40 Potassium 4.1 mmol/L (3.5-5.1) 03/08/18 07:40 Chloride 108 mmol/L (98-107) H 03/08/18 07:40 Carbon Dioxide 26 mmol/L (21-32) 03/08/18 07:40 Anion Gap 7 MMOL/L (8-16) L 03/08/18 07:40 BUN 16 mg/dL (7-18) 03/08/18 07:40 Creatinine 0.9 mg/dL (0.55-1.3) 03/08/18 07:40 Creat Clearance w eGFR > 60 (>60) 03/08/18 07:40 Random Glucose 106 mg/dL (74-106) 03/08/18 07:40 Calcium 8.6 mg/dL (8.5-10.1) 03/08/18 07:40 Total Bilirubin 0.3 mg/dL (0.2-1) 03/08/18 07:40 AST 31 U/L (15-37) 03/08/18 07:40 ALT 23 U/L (13-61) 03/08/18 07:40 Alkaline Phosphatase 61 U/L (45-117) 03/08/18 07:40 Total Protein 6.0 g/dl (6.4-8.2) L 03/08/18 07:40 Albumin 3.0 g/dl (3.4-5.0) L 03/08/18 07:40 Urine Color Samara 03/08/18 08:40 Urine Appearance Slcloudy 03/08/18 08:40 Urine pH 5.0 (5.0-8.0) 03/08/18 08:40 Ur Specific [place] 1.018 (1.010-1.035) 03/08/18 08:40 Urine Protein Negative (NEGATIVE) 03/08/18 08:40 Urine Glucose (UA) Negative (NEGATIVE) 03/08/18 08:40 Urine Ketones Negative (NEGATIVE) 03/08/18 08:40 Urine Blood 2+ (NEGATIVE) H 03/08/18 08:40 Urine Nitrite Positive (NEGATIVE) 03/08/18 08:40 Urine Bilirubin Negative (<2.0 mg/dL) 03/08/18 08:40 Urine Urobilinogen Negative mg/dL (0.2-1.0) 03/08/18 08:40 Ur Leukocyte Esterase Negative (NEGATIVE) 03/08/18 08:40 Urine WBC (Auto) 3 /hpf (3-5) 03/08/18 08:40 Urine RBC (Auto) 1 /hpf (0-3) 03/08/18 08:40 Ur Epithelial Cells Rare /HPF (FEW) 03/08/18 08:40 Urine Bacteria Many /hpf (NONE SEEN) 03/08/18 08:40 Urine Mucus Rare 03/08/18 08:40 RPR Titer Nonreactive (NONREACTIVE) 03/08/18 07:40 lab noted Assessment: 03/09/18 18:02 withdrawal sx Plan: continue detox
[2018-03-09] MEDS: THIAMINE HCL 100 MG TABLET (FP) PO SCH (22:19)
[2018-03-09] MEDS: LIDOCAINE PATCH REMOVAL MC SCH (22:20)
[2018-03-09] MEDS: MELATONIN 5 MG TABLETS PO PRN (22:20)
[2018-03-09] MEDS ORDERED: chlordiazePOXIDE 5 MG CAPSULE PO SCH (23:00)
[2018-03-10] MEDS: diazePAM 5 MG TABLET PO PRN (06:32)
[2018-03-10] MEDS: ACETAMINOPHEN 325 MG TABLET (FP) PO PRN (06:33)
--- NOTE | 2018-03-10 09:54 | PN ---
[facility]HS Progress Note (SOAP) Subjective: body aches sweats Objective: 03/10/18 09:56 Vital Signs Temperature 97.7 F 03/10/18 09:48 Pulse Rate 75 03/10/18 09:48 Respiratory Rate 16 03/10/18 09:48 Blood Pressure 111/73 03/10/18 09:48 O2 Sat by Pulse Oximetry (%) aaox3 ambulating no acute distress Assessment: 03/10/18 09:56 withdrawal sx Plan: continue detox increase fluids d/c in am
[2018-03-10] MEDS: diazePAM 5 MG TABLET PO SCH ×2 (10:55→22:05)
[2018-03-10] MEDS: PRENATAL VITAMINS W/ FOLIC ACID TABLET (FP) PO SCH (10:55)
[2018-03-10] MEDS: LIDOCAINE 5% TOPICAL PATCH TP SCH (10:56)
[2018-03-10] MEDS: NICOTINE 21 MG/24 HOURS TOPICAL PATCH TD SCH (10:56)
[2018-03-10] MEDS: LIDOCAINE PATCH REMOVAL MC SCH (22:05)
[2018-03-10] MEDS: MELATONIN 5 MG TABLETS PO PRN (22:05)
[2018-03-10] MEDS: THIAMINE HCL 100 MG TABLET (FP) PO SCH (22:49)
[2018-03-10] MEDS ORDERED: chlordiazePOXIDE HCL 10 MG CAPSULE PO SCH (23:00)
[2018-03-11] MEDS ORDERED: diazePAM 5 MG TABLET PO SCH (06:00)
[2018-03-11 07:42] VITALS: BP 96/63; PULSE 81; TEMP 97.7
--- NOTE | 2018-03-11 08:47 | DS ---
[facility] Detox Discharge Summary Admission Date: 03/07/18 Discharge Date: 03/11/18 - History Present History: Alcohol Dependence, Cocaine Dependence - Physical Exam Results Vital Signs: Vital Signs Temperature 97.7 F 03/11/18 07:42 Pulse Rate 81 03/11/18 07:42 Respiratory Rate 18 03/11/18 07:42 Blood Pressure 96/63 03/11/18 07:42 O2 Sat by Pulse Oximetry (%) - Treatment Hospital Course: Detox Protocol Followed, Detoxed Safely, Responded well, Discharged Condition Good, Rehab Referral Accepted - Medication Discharge Medications: Ambulatory Orders NK [No Known Home Medication] 03/11/17 - Diagnosis (1) Alcohol dependence with uncomplicated withdrawal Current Visit: Yes Status: Chronic (2) At risk for dehydration due to poor fluid intake Current Visit: Yes Status: Acute (3) Cocaine dependence Current Visit: Yes Status: Acute (4) Depressed affect Current Visit: Yes Status: Acute (5) Substance-induced sleep disorder Current Visit: Yes Status: Acute (6) Dyslipidemia Current Visit: Yes Status: Chronic (7) History of anemia Current Visit: Yes Status: Chronic (8) Nicotine dependence Current Visit: Yes Status: Chronic Qualifiers: Nicotine product type: cigarettes Substance use status: uncomplicated Qualified Code(s): F17.210 - Nicotine dependence, cigarettes, uncomplicated (9) Drug-induced mood disorder Current Visit: Yes Status: Suspected (10) Bradycardia Current Visit: No Status: Acute (11) Dizziness Current Visit: No Status: Acute (12) Elevated CK Current Visit: No Status: Acute (13) Hyperthyroidism Current Visit: No Status: Acute (14) Mood disorder Current Visit: No Status: Acute - AMA Did Patient Leave Against Medical Advice: No
== END 2018-03-11 09:30 | disposition home or self-care (01) | DRG 774 ==
LOC: YASAS 14:24 → Y6N 17:33
PROC: HZ2ZZZZ Detoxification Services for Substance Abuse Treatment (ICD-10-PCS; principal; 2018-03-07)
DX: F10.230 Alcohol dependence with withdrawal, uncomplicated (principal); F14.20 Cocaine dependence, uncomplicated; F17.210 Nicotine dependence, cigarettes, uncomplicated; F32.9 Major depressive disorder, single episode, unspecified; F19.24 Other psychoactive substance dependence with psychoactive substance-induced mood disorder; F19.282 Other psychoactive substance dependence with psychoactive substance-induced sleep disorder; F39 Unspecified mood [affective] disorder; E78.5 Hyperlipidemia, unspecified; R00.1 Bradycardia, unspecified; R42 Dizziness and giddiness; R63.8 Other symptoms and signs concerning food and fluid intake; R74.9 Abnormal serum enzyme level, unspecified; E05.90 Thyrotoxicosis, unspecified without thyrotoxic crisis or storm; D64.9 Anemia, unspecified
CPT/HCPCS: 36415; 80053; 81003; 81015; 85027; 86593; 93005; 93010

== ENCOUNTER 2018-04-27 10:38 | Inpatient (IN) | payer OTHER ==
[2018-04-27 10:58] VITALS: BMI 19.0
--- NOTE | 2018-04-27 13:46 | HP ---
CIWA Score Nausea/Vomitin Muscle Tremors: 2 Anxiety: 2 Agitation: 2 Paroxysmal Sweats: 1-Minimal Palms Moist Orientation: 0-Oriented Tacttile Disturbances: 1-Very Mild Itch/Numbness Auditory Disturbances: 1-Very Mild Visual Disturbances: 0-None Headache: 2-Mild CIWA-Ar Total Score: 13 - Admission Criteria [facility] Guidelines: Admission for Medically Managed Detox: Requires at least one of the followin. CIWA greater than 12 2. Seizures within the past 24 hours 3. Delirium tremens within the past 24 hours 4. Hallucinations within the past 24 hours 5. Acute intervention needed for co occurring medical disorder 6. Acute intervention needed for co occurring psychiatric disorder 7. Severe withdrawal that cannot be handled at a lower level of care (continued vomiting, continued diarrhea, abnormal vital signs) requiring intravenous medication and/or fluids 8. Patient presents the following: CIWA greater than 12 Admission Criteria Met: Admission criteria met Admission ROS [facility] - HPI Chief Complaint: i need help to stop drinking alcohol and cocaine Allergies/Adverse Reactions: Allergies Allergy/AdvReac Type Severity Reaction Status Date / Time No Known Allergies Allergy Verified 04/27/18 11:50 History of Present Illness: this 58 years old female with alcohol and cocaine dependence seeking detox, withdrawal symptom,last detox 03/07/18 to 03/11/18 syncope alcohol related hypercholesterolemia on diet control nicotine dependence weight loss multiple admissions in detox ,keep relapsing longest sobriety 2 and a half years depression plan for rehb after detox coughing with greenish sputum for 2 days Exam Limitations: No Limitations - Ebola screening Have you traveled outside of the country in the last 21 days: No Have you had contact with anyone from an Ebola affected area: No Have you been sick,other than usual withdrawal symptoms: No Do you have a fever: No - Review of Systems Constitutional: Loss of Appetite, Malaise, Night Sweats, Changes in sleep, Weakness, Unintentional Wgt. Loss EENT: reports: Nose Congestion Respiratory: reports: No Symptoms reported Cardiac: reports: No Symptoms Reported GI: reports: Nausea, Vomiting, Abdominal cramping : reports: No Symptoms Reported Musculoskeletal: reports: Back Pain, Muscle Pain Integumentary: reports: Dryness Neuro: reports: Headache, Tremors Endocrine: reports: No Symptoms Reported Hematology: reports: No Symptoms Reported Psychiatric: reports: No Sypmtoms Reported, Judgement Intact, Mood/Affect Appropiate, Orientated x3, Depressed Patient History - Patient Medical History Hx Anemia: Yes (TAKING IRON PILLS) Hx Asthma: No Hx Chronic Obstructive Pulmonary Disease (COPD): No Hx Cancer: No Hx Cardiac Disorders: No Hx Congestive Heart Failure: No Hx Hypertension: No Hx Hypercholesterolemia: Yes (no med) Hx Pacemaker: No HX Cerebrovascular Accident: No Hx Seizures: No Hx Dementia: No Hx Diabetes: No Hx Gastrointestinal Disorders: No Hx Liver Disease: No Hx Genitourinary Disorders: No Hx Sexually Transmitted Disorders: No Hx Renal Disease (ESRD): No Hx Thyroid Disease: No Hx Human Immunodeficiency Virus (HIV): No (10/17 negative) Hx Hepatitis C: No Hx Depression: Yes (no med) Hx Suicide Attempt: No Hx Bipolar Disorder: No Hx Schizophrenia: No Other Medical History: no suicidal,no homicidal - Patient Surgical History Past Surgical History: Yes Hx Neurologic Surgery: No Hx Cataract Extraction: No Hx Cardiac Surgery: No Hx Lung Surgery: No Hx Breast Surgery: No Hx Breast Biopsy: No Hx Abdominal Surgery: No Hx Appendectomy: No Hx Cholecystectomy: No Hx Genitourinary Surgery: No Hx Section: Yes (1974 and 1979) Hx Orthopedic Surgery: Yes (Knee sx 1968. Metal brace on hips 2003 for fx) Anesthesia Reaction: No - PPD History Previous Implant?: Yes Documented Results: Negative w/proof Date: 03/09/18 Results: 0mm PPD to be Administered?: No - Reproductive History Patient is a Female of Child Bearing Age (11 -55 yrs old): No Last Menstrual Period: 09/02/10 Patient : No - Smoking Cessation Smoking history: Current every day smoker Have you smoked in the past 12 months: Yes Aproximately how many cigarettes per day: 30 If you are a former smoker, when did you quit?: 08/19/2011 Cigars Per Day: 0 Hx Chewing Tobacco Use: No Initiated information on smoking cessation: Yes 'Breaking Loose' booklet given: 04/27/18 - Substance & Tx. History Hx Alcohol Use: Yes Hx Substance Use: Yes Substance Use Type: Alcohol, Cocaine Hx Substance Use Treatment: Yes ([facility] 03/07/18 to 03/11/18) - Substances Abused Alcohol Route: Smoking Frequency: Daily Amount used: 18-24 12oz cans of beers Age of first use: 31 Date of Last Use: 04/27/18 Crack Route: Smoking Frequency: Daily Amount used: $200 Age of first use: 31 Date of Last Use: 04/27/18 Family Disease History - Family Disease History Family Disease History: Other: Father (alcohol,cva,), Mother (alcoholic , from leukemia) Admission Physical Exam [facility] - Vital Signs Vital Signs: Vital Signs - 24 hr 04/27/18 10:57 Temperature 96.8 F L Pulse Rate 71 Respiratory 18 Rate Blood Pressure 110/62 - Physical General Appearance: Yes: Moderate Distress, Tremorous, Irritable, Sweating, Anxious HEENTM: Yes: Normal ENT Inspection, LANI, Pharynx Normal Respiratory: Yes: Within Normal Limits, Lungs Clear, Normal Breath Sounds Neck: Yes: Within Normal Limits, Supple, Trachea in good position Breast: Yes: Breast Exam Deferred Cardiology: Yes: Within Normal Limits, Regular Rhythm, Regular Rate, S1, S2 Abdominal: Yes: Within Normal Limits, Normal Bowel Sounds, Non Tender, Flat, Soft Genitourinary: Yes: Within Normal Limits Back: Yes: Muscle Spasm Musculoskeletal: Yes: Back pain, Muscle Pain Extremities: Yes: Tremors 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 NML intact, Fully Oriented, Alert, Motor Strength 5/5 Integumentary: Yes: Dry Lymphatic: Yes: Within Normal Limits - Diagnostic (1) Alcohol dependence with uncomplicated withdrawal Current Visit: Yes Status: Chronic (2) Cocaine dependence Current Visit: Yes Status: Acute Qualifiers: Substance use status: uncomplicated Qualified Code(s): F14.20 - Cocaine dependence, uncomplicated (3) Dyslipidemia Current Visit: No Status: Deleted (4) History of anemia Current Visit: No Status: Deleted (5) Nicotine dependence Current Visit: No Status: Chronic Qualifiers: Nicotine product type: cigarettes Substance use status: uncomplicated Qualified Code(s): F17.210 - Nicotine dependence, cigarettes, uncomplicated (6) Depression Current Visit: Yes Status: Deleted (7) History of left knee surgery Current Visit: No Status: Chronic (8) Acute bronchitis Current Visit: Yes Status: Deleted Cleared for Admission [facility] - Detox or Rehab [facility] Level of Care: Medically Managed Detox Regimen/Protocol: Valium [facility] Breath Alcohol Content Breath Alcohol Content: 0 Urine Pregancy Test - Result Urine Test Results: Negative- NO Line Present Urine Drug Screen - Results Drug Screen Negative: No Urine Drug Screen Results: LILIANA-Cocaine, BZO-Benzodiazepines
[2018-04-27] MEDS ORDERED: NICOTINE POLACRILEX 2 MG GUM BUC PRN (14:07)
[2018-04-27] MEDS ORDERED: P-EPHED 60MG/TRIPROLIDI 2.5MG TABLET PO PRN (14:07)
[2018-04-27] MEDS ORDERED: MENTHOL/PHENOL 1 EACH UD MM PRN (14:07)
[2018-04-27] MEDS ORDERED: MAGNESIUM HYDROX 2400MG/30ML ORAL SUSPENSION 30 ML CUP PO PRN (14:07)
[2018-04-27] MEDS ORDERED: MAGNESIUM CITRATE 300 ML BOTTLE PO PRN (14:07)
[2018-04-27] MEDS ORDERED: MAG HYDROX/AL HYDROX/SIMETH 30 ML UNIT-DOSE CUP PO PRN (14:07)
[2018-04-27] MEDS ORDERED: LOPERAMIDE HCL 2 MG CAPSULE PO PRN (14:07)
[2018-04-27] MEDS ORDERED: IBUPROFEN 400 MG TABLET (FP) PO PRN (14:07)
[2018-04-27] MEDS ORDERED: diazePAM 5 MG TABLET PO PRN (14:07)
[2018-04-27] MEDS ORDERED: diazePAM 5 MG TABLET PO ONE (15:45)
[2018-04-27] MEDS ORDERED: AZITHROMYCIN 250 MG TABLET PO ONE (15:50)
[2018-04-27] MEDS: guaiFENesin/D-METHORPHAN HB 10 ML UNIT-DOSE CUPS PO PRN (16:36)
[2018-04-27] MEDS: NICOTINE 21 MG/24 HOURS TOPICAL PATCH TD SCH (16:36)
[2018-04-27] MEDS ORDERED: MELATONIN 5 MG TABLETS PO PRN (22:00)
[2018-04-27] MEDS: diazePAM 5 MG TABLET PO SCH (22:18)
[2018-04-27] MEDS: THIAMINE HCL 100 MG TABLET (FP) PO SCH (22:18)
[2018-04-27 23:09] LABS: URINE APPEARANCE SLCLOUDY; URINE BILIRUBIN NEGATIVE (<2.0 mg/dL); URINE COLOR AMBER; URINE GLUCOSE (UA) NEGATIVE (NEGATIVE); URINE KETONE NEGATIVE (NEGATIVE); URINE LEUK ESTERASE NEGATIVE (NEGATIVE); URINE NITRITE POSITIVE (NEGATIVE); URINE PROTEIN NEGATIVE (NEGATIVE)
[2018-04-27 23:15] LABS: EPI CELLS RARE /HPF (FEW); URINE BACTERIA RARE /hpf (NONE SEEN); URINE MUCUS RARE
[2018-04-28] MEDS: diazePAM 5 MG TABLET PO SCH ×3 (05:53→22:31)
--- NOTE | 2018-04-28 10:11 | PN ---
S CIWA - CIWA Score Nausea/Vomitin-No Nausea/No Vomiting Muscle Tremors: 4-Moderate,w/Arms Extend Anxiety: 3 Agitation: 3 Paroxysmal Sweats: 3 Orientation: 0-Oriented Tacttile Disturbances: 0-None Auditory Disturbances: 0-None Visual Disturbances: 0-None Headache: 0-None Present CIWA-Ar Total Score: 13 S Progress Note (SOAP) Subjective: sweats shakes body aches interrupted sleep agitation Objective: 04/28/18 10:10 Vital Signs Temperature 98.1 F 04/28/18 09:17 Pulse Rate 70 04/28/18 09:17 Respiratory Rate 17 04/28/18 09:17 Blood Pressure 116/67 04/28/18 09:17 O2 Sat by Pulse Oximetry (%) Laboratory Tests 04/27/18 23:00 Urine Color Samara Urine Appearance Slcloudy Urine pH 5.0 Ur Specific [place] 1.025 Urine Protein Negative Urine Glucose (UA) Negative Urine Ketones Negative Urine Blood 2+ H Urine Nitrite Positive Urine Bilirubin Negative Urine Urobilinogen 2.0 H Ur Leukocyte Esterase Negative Urine WBC (Auto) 5 Urine RBC (Auto) 2 Ur Epithelial Cells Rare Urine Bacteria Rare Urine Mucus Rare rest of labs pending aaox3 ambulating no acute distress Assessment: 04/28/18 10:11 withdrawal sx Plan: continue detox increase fluids labs pending
[2018-04-28] MEDS: NICOTINE 21 MG/24 HOURS TOPICAL PATCH TD SCH (10:13)
[2018-04-28] MEDS: AZITHROMYCIN 250 MG TABLET PO SCH (10:13)
[2018-04-28] MEDS: PRENATAL VITAMINS W/ FOLIC ACID TABLET (FP) PO SCH (10:13)
[2018-04-28] MEDS: ACETAMINOPHEN 325 MG TABLET (FP) PO PRN (10:14)
[2018-04-28] MEDS: guaiFENesin/D-METHORPHAN HB 10 ML UNIT-DOSE CUPS PO PRN (10:16)
[2018-04-28 10:27] LABS: HEMATOCRIT 37.9 % (32.4-45.2); HEMOGLOBIN 12.6 GM/dL (10.7-15.3); MCH 32.9 pg (25.7-33.7); MCHC 33.2 g/dl (32.0-36.0); MEAN CELL VOLUME 99.1 fl (80-96); MEAN PLT VOLUME 7.9 fl (7.5-11.1); PLATELET COUNT 307 K/MM3 (134-434); RBC 3.83 M/mm3 (3.60-5.2); RDW 13.1 % (11.6-15.6); WHITE BLOOD COUNT 5.4 K/mm3 (4.0-10.0)
[2018-04-28 10:41] LABS: ALBUMIN 3.8 g/dl (3.4-5.0); ALK PHOS 68 U/L (45-117); ANION GAP 7 MMOL/L (8-16); BILIRUBIN,TOTAL 0.3 mg/dL (0.2-1); BLOOD UREA NITROGEN 17 mg/dL (7-18); CHLORIDE 108 mmol/L (98-107); CO2 26 mmol/L (21-32); CREATININE 1.1 mg/dL (0.55-1.3); GLUCOSE,RANDOM 91 mg/dL (74-106); POTASSIUM 4.5 mmol/L (3.5-5.1); SGOT/AST 35 U/L (15-37); SGPT/ALT 27 U/L (13-61); SODIUM 142 mmol/L (136-145)
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
[2018-04-28] MEDS: THIAMINE HCL 100 MG TABLET (FP) PO SCH (22:31)
[2018-04-29] MEDS: PRENATAL VITAMINS W/ FOLIC ACID TABLET (FP) PO SCH (10:06)
[2018-04-29] MEDS: AZITHROMYCIN 250 MG TABLET PO SCH (10:07)
[2018-04-29] MEDS: diazePAM 5 MG TABLET PO SCH ×2 (10:07→22:13)
[2018-04-29] MEDS: NICOTINE 21 MG/24 HOURS TOPICAL PATCH TD SCH (10:07)
[2018-04-29] MEDS: ACETAMINOPHEN 325 MG TABLET (FP) PO PRN (10:08)
--- NOTE | 2018-04-29 10:34 | PN ---
S CIWA - CIWA Score Nausea/Vomitin-Mild Nausea/No Vomiting Muscle Tremors: 3 Anxiety: 2 Agitation: 2 Paroxysmal Sweats: 1-Minimal Palms Moist Orientation: 0-Oriented Tacttile Disturbances: 0-None Auditory Disturbances: 0-None Visual Disturbances: 0-None Headache: 1-Very Mild CIWA-Ar Total Score: 10 S Progress Note (SOAP) Subjective: sweat tremor anxiety restlessness Objective: 04/29/18 10:35 Vital Signs Temperature 98.4 F 04/29/18 09:07 Pulse Rate 69 04/29/18 09:07 Respiratory Rate 18 04/29/18 09:07 Blood Pressure 112/68 04/29/18 09:07 O2 Sat by Pulse Oximetry (%) Laboratory Last Values WBC 5.4 K/mm3 (4.0-10.0) 04/28/18 05:45 RBC 3.83 M/mm3 (3.60-5.2) 04/28/18 05:45 Hgb 12.6 GM/dL (10.7-15.3) 04/28/18 05:45 Hct 37.9 % (32.4-45.2) 04/28/18 05:45 MCV 99.1 fl (80-96) H 04/28/18 05:45 MCH 32.9 pg (25.7-33.7) 04/28/18 05:45 MCHC 33.2 g/dl (32.0-36.0) 04/28/18 05:45 RDW 13.1 % (11.6-15.6) 04/28/18 05:45 Plt Count 307 K/MM3 (134-434) 04/28/18 05:45 MPV 7.9 fl (7.5-11.1) 04/28/18 05:45 Sodium 142 mmol/L (136-145) 04/28/18 05:45 Potassium 4.5 mmol/L (3.5-5.1) 04/28/18 05:45 Chloride 108 mmol/L (98-107) H 04/28/18 05:45 Carbon Dioxide 26 mmol/L (21-32) 04/28/18 05:45 Anion Gap 7 MMOL/L (8-16) L 04/28/18 05:45 BUN 17 mg/dL (7-18) 04/28/18 05:45 Creatinine 1.1 mg/dL (0.55-1.3) 04/28/18 05:45 Creat Clearance w eGFR 50.67 (>60) 04/28/18 05:45 Random Glucose 91 mg/dL (74-106) 04/28/18 05:45 Calcium 9.0 mg/dL (8.5-10.1) 04/28/18 05:45 Total Bilirubin 0.3 mg/dL (0.2-1) 04/28/18 05:45 AST 35 U/L (15-37) 04/28/18 05:45 ALT 27 U/L (13-61) 04/28/18 05:45 Alkaline Phosphatase 68 U/L (45-117) 04/28/18 05:45 Total Protein 7.0 g/dl (6.4-8.2) 04/28/18 05:45 Albumin 3.8 g/dl (3.4-5.0) 04/28/18 05:45 Urine Color Samara 04/27/18 23:00 Urine Appearance Slcloudy 04/27/18 23:00 Urine pH 5.0 (5.0-8.0) 04/27/18 23:00 Ur Specific [place] 1.025 (1.010-1.035) 04/27/18 23:00 Urine Protein Negative (NEGATIVE) 04/27/18 23:00 Urine Glucose (UA) Negative (NEGATIVE) 04/27/18 23:00 Urine Ketones Negative (NEGATIVE) 04/27/18 23:00 Urine Blood 2+ (NEGATIVE) H 04/27/18 23:00 Urine Nitrite Positive (NEGATIVE) 04/27/18 23:00 Urine Bilirubin Negative (<2.0 mg/dL) 04/27/18 23:00 Urine Urobilinogen 2.0 mg/dL (0.2-1.0) H 04/27/18 23:00 Ur Leukocyte Esterase Negative (NEGATIVE) 04/27/18 23:00 Urine WBC (Auto) 5 /hpf (3-5) 04/27/18 23:00 Urine RBC (Auto) 2 /hpf (0-3) 04/27/18 23:00 Ur Epithelial Cells Rare /HPF (FEW) 04/27/18 23:00 Urine Bacteria Rare /hpf (NONE SEEN) 04/27/18 23:00 Urine Mucus Rare 04/27/18 23:00 RPR Titer Nonreactive (NONREACTIVE) 04/28/18 05:45 lab noted repeat ua 04/29/18 10:36 Assessment: 04/29/18 10:37 withdrawal sx Plan: continue detox
[2018-04-29] MEDS: THIAMINE HCL 100 MG TABLET (FP) PO SCH (22:13)
[2018-04-30] MEDS ORDERED: HYDROCORTISONE 2.5% TOPICAL CREAM 30 GM TUBE TP SCH (10:00)
--- NOTE | 2018-04-30 10:14 | PN ---
[facility] Progress Note (SOAP) Subjective: feeling better no tremor less sweat social with peers in day room and hallway discuss aftercare Objective: 04/30/18 10:13 Vital Signs Temperature 98.2 F 04/30/18 09:43 Pulse Rate 85 04/30/18 09:43 Respiratory Rate 18 04/30/18 09:43 Blood Pressure 119/75 04/30/18 09:43 O2 Sat by Pulse Oximetry (%) Laboratory Last Values WBC 5.4 K/mm3 (4.0-10.0) 04/28/18 05:45 RBC 3.83 M/mm3 (3.60-5.2) 04/28/18 05:45 Hgb 12.6 GM/dL (10.7-15.3) 04/28/18 05:45 Hct 37.9 % (32.4-45.2) 04/28/18 05:45 MCV 99.1 fl (80-96) H 04/28/18 05:45 MCH 32.9 pg (25.7-33.7) 04/28/18 05:45 MCHC 33.2 g/dl (32.0-36.0) 04/28/18 05:45 RDW 13.1 % (11.6-15.6) 04/28/18 05:45 Plt Count 307 K/MM3 (134-434) 04/28/18 05:45 MPV 7.9 fl (7.5-11.1) 04/28/18 05:45 Sodium 142 mmol/L (136-145) 04/28/18 05:45 Potassium 4.5 mmol/L (3.5-5.1) 04/28/18 05:45 Chloride 108 mmol/L (98-107) H 04/28/18 05:45 Carbon Dioxide 26 mmol/L (21-32) 04/28/18 05:45 Anion Gap 7 MMOL/L (8-16) L 04/28/18 05:45 BUN 17 mg/dL (7-18) 04/28/18 05:45 Creatinine 1.1 mg/dL (0.55-1.3) 04/28/18 05:45 Creat Clearance w eGFR 50.67 (>60) 04/28/18 05:45 Random Glucose 91 mg/dL (74-106) 04/28/18 05:45 Calcium 9.0 mg/dL (8.5-10.1) 04/28/18 05:45 Total Bilirubin 0.3 mg/dL (0.2-1) 04/28/18 05:45 AST 35 U/L (15-37) 04/28/18 05:45 ALT 27 U/L (13-61) 04/28/18 05:45 Alkaline Phosphatase 68 U/L (45-117) 04/28/18 05:45 Total Protein 7.0 g/dl (6.4-8.2) 04/28/18 05:45 Albumin 3.8 g/dl (3.4-5.0) 04/28/18 05:45 Urine Color Samara 04/27/18 23:00 Urine Appearance Slcloudy 04/27/18 23:00 Urine pH 5.0 (5.0-8.0) 04/27/18 23:00 Ur Specific [place] 1.025 (1.010-1.035) 04/27/18 23:00 Urine Protein Negative (NEGATIVE) 04/27/18 23:00 Urine Glucose (UA) Negative (NEGATIVE) 04/27/18 23:00 Urine Ketones Negative (NEGATIVE) 04/27/18 23:00 Urine Blood 2+ (NEGATIVE) H 04/27/18 23:00 Urine Nitrite Positive (NEGATIVE) 04/27/18 23:00 Urine Bilirubin Negative (<2.0 mg/dL) 04/27/18 23:00 Urine Urobilinogen 2.0 mg/dL (0.2-1.0) H 04/27/18 23:00 Ur Leukocyte Esterase Negative (NEGATIVE) 04/27/18 23:00 Urine WBC (Auto) 5 /hpf (3-5) 04/27/18 23:00 Urine RBC (Auto) 2 /hpf (0-3) 04/27/18 23:00 Ur Epithelial Cells Rare /HPF (FEW) 04/27/18 23:00 Urine Bacteria Rare /hpf (NONE SEEN) 04/27/18 23:00 Urine Mucus Rare 04/27/18 23:00 RPR Titer Nonreactive (NONREACTIVE) 04/28/18 05:45 lab noted Assessment: 04/30/18 10:14 mild withdrawal sx Plan: medically supervised detox
[2018-04-30] MEDS: PRENATAL VITAMINS W/ FOLIC ACID TABLET (FP) PO SCH (10:28)
[2018-04-30] MEDS: diazePAM 5 MG TABLET PO SCH (10:28)
[2018-04-30] MEDS: NICOTINE 21 MG/24 HOURS TOPICAL PATCH TD SCH (10:28)
[2018-04-30] MEDS: AZITHROMYCIN 250 MG TABLET PO SCH (10:28)
[2018-04-30 10:48] LABS: URINE APPEARANCE SLCLOUDY; URINE BILIRUBIN NEGATIVE (<2.0 mg/dL); URINE COLOR YELLOW; URINE GLUCOSE (UA) NEGATIVE (NEGATIVE); URINE KETONE NEGATIVE (NEGATIVE); URINE LEUK ESTERASE NEGATIVE (NEGATIVE); URINE NITRITE NEGATIVE (NEGATIVE); URINE PROTEIN NEGATIVE (NEGATIVE); URINE UROBILINOGEN NEGATIVE mg/dL (0.2-1.0)
--- NOTE | 2018-04-30 14:03 | DS ---
[facility] Detox Discharge Summary Admission Date: 04/27/18 Discharge Date: 04/30/18 - History Present History: Alcohol Dependence - Physical Exam Results Vital Signs: Vital Signs Temperature 98.2 F 04/30/18 09:43 Pulse Rate 85 04/30/18 09:43 Respiratory Rate 18 04/30/18 09:43 Blood Pressure 119/75 04/30/18 09:43 O2 Sat by Pulse Oximetry (%) - Treatment Hospital Course: Detox Protocol Followed, Detoxed Safely, Responded well, Discharged Condition Good, Rehab Referral Accepted - Medication Discharge Medications: Ambulatory Orders NK [No Known Home Medication] 03/11/17 - AMA Did Patient Leave Against Medical Advice: No
[2018-04-30 18:05] VITALS: BP 123/76; PULSE 85; TEMP 98.2
[2018-05-01] MEDS ORDERED: diazePAM 5 MG TABLET PO SCH (10:00)
== END 2018-04-30 17:55 | disposition other institution (70) | DRG 774 ==
LOC: YASAS 10:38 → Y6N 15:23
PROC: HZ2ZZZZ Detoxification Services for Substance Abuse Treatment (ICD-10-PCS; principal; 2018-04-27)
DX: F10.230 Alcohol dependence with withdrawal, uncomplicated (principal); F14.20 Cocaine dependence, uncomplicated; F19.24 Other psychoactive substance dependence with psychoactive substance-induced mood disorder; F19.282 Other psychoactive substance dependence with psychoactive substance-induced sleep disorder; F39 Unspecified mood [affective] disorder; E05.90 Thyrotoxicosis, unspecified without thyrotoxic crisis or storm; E78.5 Hyperlipidemia, unspecified; Z91.89 Other specified personal risk factors, not elsewhere classified; Z98.890 Other specified postprocedural states
CPT/HCPCS: 36415; 80053; 81003; 81015; 85027; 86593

== ENCOUNTER 2018-04-30 18:37 | Inpatient (IN) | payer OTHER ==
--- NOTE | 2018-04-30 14:50 | HP ---
[facility] Rehab Assess/Revision - Admission History Admitted to Rehab from: [facility] [place] Date of Admission to Rehab: 04/30/18 - Findings Detox History & Physical reviewed: Yes Concur with findings: Yes Comments/Additional Findings: trasnferred from detox to rehab admission as per protocol Inpatient Rehab Admission - Initial Determination Are CD services needed?: Yes Free of communicable disease: Yes Not in need of hospitalization: Yes - Rehab Admission Criteria Previous failed treatment: Yes Poor recovery environment: Yes Comorbidities: Yes Lacks judgement: No Patient is meeting Inpatient Rehab admission criteria:: Yes
[~2018-04-30 18:37] MED LIST: LOPERAMIDE HCL 2 MG CAPSULE PO PRN; MAG HYDROX/AL HYDROX/SIMETH 30 ML UNIT-DOSE CUP PO PRN; MAGNESIUM CITRATE 300 ML BOTTLE PO PRN; MAGNESIUM HYDROX 2400MG/30ML ORAL SUSPENSION 30 ML CUP PO PRN; MENTHOL/PHENOL 1 EACH UD MM PRN; NICOTINE 14 MG/24 HOURS TOPICAL PATCH TD PRN
[2018-04-30] MEDS ORDERED: MELATONIN 5 MG TABLETS PO PRN (22:00)
[2018-04-30] MEDS: THIAMINE HCL 100 MG TABLET (FP) PO SCH (23:58)
[2018-05-01] MEDS: PRENATAL VITAMINS W/ FOLIC ACID TABLET (FP) PO SCH (09:54)
--- NOTE | 2018-05-01 11:19 | HP ---
Psychiatrist Admission - Data Date of interview: 05/01/18 Admission source: [address] [place] [address] Identifying data: This is one of the [facility] for this 58 yo AA mother of 3 grown children,residing in [facility],supported by [facility]. Medical History: Significant for Hyperthyroidism. Psychiatric History: Patient reports sleeping difficulties on and off,medicated herself with alcohol,drugs.patient is not on psychotropic medications andis not willing to start at this time.. Physical/Sexual Abuse/Trauma History: denies Vital Signs: Vital Signs - 24 hr 04/30/18 05/01/18 05/01/18 18:25 00:30 03:30 Temperature 97.9 F Pulse Rate 93 H Respiratory 18 18 17 Rate Blood Pressure 120/90 05/01/18 06:59 Temperature 97.9 F Pulse Rate 65 Respiratory 16 Rate Blood Pressure 92/60 Allergies/Adverse Reactions: Allergies Allergy/AdvReac Type Severity Reaction Status Date / Time No Known Allergies Allergy Verified 04/27/18 11:50 Date of last physical exam: 04/27/18 Concur with the findings of this exam: Yes - Substance Abuse/Tx History Hx Alcohol Use: Yes (reports drinking since 31 yo,vodka 2-3 pints and 4 packs of beer daily) Hx Substance Use: Yes (cocaine/crack stopped in 2013) Substance Use Type: Cocaine Hx Substance Use Treatment: Yes (completed inpatient rehab in 2014,reports 3 years of abstinence) Mental Status Exam - Mental Status Exam Alert and Oriented to: Time, Place, Person Cognitive Function: Grossly Intact Patient Appearance: Well Groomed Mood: Euthymic Affect: Mood Congruent Patient Behavior: Cooperative Speech Pattern: Clear Voice Loudness: Normal Thought Process: Goal Oriented Thought Disorder: Not Present Hallucinations: Denies Suicidal Ideation: Denies Homicidal Ideation: Denies Insight/Judgement: Fair Sleep: Difficulty falling asleep Appetite: Good Muscle strength/Tone: Normal Gait/Station: Normal Psychiatric Findings - Problem List ([place] 1, 2,3) (1) Cocaine dependence Current Visit: Yes Status: Chronic Qualifiers: Substance use status: uncomplicated Qualified Code(s): F14.20 - Cocaine dependence, uncomplicated (2) Hyperthyroidism Current Visit: Yes Status: Chronic (3) Substance-induced sleep disorder Current Visit: Yes Status: Chronic (4) History of left knee surgery Current Visit: Yes Status: Chronic - Initial Treatment Plan Initial Treatment Plan: [place] 5 mg po hs will be adjusted to 10 mg po hs.Will monitor progress.
--- NOTE | 2018-05-01 14:48 | PN ---
[facility] Progress Note Note: pt complaining of hemorrhoid flare- anusol ordered
[2018-05-01] MEDS: ACETAMINOPHEN 325 MG TABLET (FP) PO PRN (14:50)
[2018-05-01] MEDS: HYDROCORTISONE 2.5% TOPICAL CREAM 30 GM TUBE TP PRN (16:28)
[2018-05-01] MEDS: THIAMINE HCL 100 MG TABLET (FP) PO SCH (21:12)
[2018-05-01] MEDS: MELATONIN 5 MG TABLETS PO PRN (21:12)
[2018-05-02] MEDS: PRENATAL VITAMINS W/ FOLIC ACID TABLET (FP) PO SCH (10:15)
[2018-05-02] MEDS ORDERED: PT OWN MED DRAWER 7, Y5N ONE (10:17)
[2018-05-02] MEDS: ACETAMINOPHEN 325 MG TABLET (FP) PO PRN (10:17)
[2018-05-02] MEDS: HYDROCORTISONE 2.5% TOPICAL CREAM 30 GM TUBE TP PRN ×2 (10:18→21:22)
[2018-05-02] MEDS: guaiFENesin/D-METHORPHAN HB 10 ML UNIT-DOSE CUPS PO PRN (18:19)
[2018-05-02] MEDS: MELATONIN 5 MG TABLETS PO PRN (21:22)
[2018-05-02] MEDS: P-EPHED 60MG/TRIPROLIDI 2.5MG TABLET PO PRN (21:23)
[2018-05-02] MEDS: THIAMINE HCL 100 MG TABLET (FP) PO SCH (23:27)
[2018-05-03] MEDS: ACETAMINOPHEN 325 MG TABLET (FP) PO PRN ×2 (06:31→21:15)
[2018-05-03] MEDS: guaiFENesin/D-METHORPHAN HB 10 ML UNIT-DOSE CUPS PO PRN ×3 (06:32→20:00)
[2018-05-03] MEDS: PRENATAL VITAMINS W/ FOLIC ACID TABLET (FP) PO SCH (10:20)
[2018-05-03] MEDS: IBUPROFEN 400 MG TABLET (FP) PO PRN (10:39)
[2018-05-03] MEDS: THIAMINE HCL 100 MG TABLET (FP) PO SCH (21:14)
[2018-05-03] MEDS: MELATONIN 5 MG TABLETS PO PRN (21:15)
[2018-05-03] MEDS: P-EPHED 60MG/TRIPROLIDI 2.5MG TABLET PO PRN (21:18)
[2018-05-04] MEDS: guaiFENesin/D-METHORPHAN HB 10 ML UNIT-DOSE CUPS PO PRN ×2 (06:27→21:35)
[2018-05-04] MEDS: ACETAMINOPHEN 325 MG TABLET (FP) PO PRN ×2 (06:27→21:35)
[2018-05-04] MEDS: PRENATAL VITAMINS W/ FOLIC ACID TABLET (FP) PO SCH (10:22)
[2018-05-04] MEDS: HYDROCORTISONE 2.5% TOPICAL CREAM 30 GM TUBE TP PRN (10:22)
[2018-05-04] MEDS ORDERED: HYDROCORTISONE 2.5% TOPICAL CREAM 30 GM TUBE PR SCH (12:10)
[2018-05-04] MEDS ORDERED: AZITHROMYCIN 250 MG TABLET PO ONE (12:10)
--- NOTE | 2018-05-04 13:59 | PN ---
S Progress Note Note: PATIENT SEEN FOR C/O PRODUCTIVE COUGH WITH GREEN PHLEGM AND SORE THROAT. PATIENT DENIES FEVER, NASAL CONGESTION AND SOB. Vital Signs Temperature 97.6 F 05/04/18 07:09 Pulse Rate 76 05/04/18 07:09 Respiratory Rate 16 05/04/18 07:09 Blood Pressure 110/75 05/04/18 07:09 O2 Sat by Pulse Oximetry (%) PE: SKIN WARM AND DRY ENT: +PERRLA, PHARYNX MILDLY INFLAMED BUT NO VISIBLE EXUDATE CAR S1S2 RRR RESP MILD RHONCHI BILATERAL ANTERIOR UPPER LOBES, NO WHEEZING NOTED EXT FULL ROM, NO EDEMA A/P URI WILL START ZPAK ENCOURAGE ORAL FLUIDS CONTINUE TO MONITOR
[2018-05-04] MEDS: MELATONIN 5 MG TABLETS PO PRN (21:34)
[2018-05-04] MEDS: THIAMINE HCL 100 MG TABLET (FP) PO SCH (21:34)
[2018-05-05] MEDS: PRENATAL VITAMINS W/ FOLIC ACID TABLET (FP) PO SCH (10:00)
[2018-05-05] MEDS: AZITHROMYCIN 250 MG TABLET PO SCH (10:00)
[2018-05-05] MEDS: ACETAMINOPHEN 325 MG TABLET (FP) PO PRN ×2 (10:01→18:41)
[2018-05-05] MEDS: THIAMINE HCL 100 MG TABLET (FP) PO SCH (21:11)
[2018-05-05] MEDS: MELATONIN 5 MG TABLETS PO PRN (21:11)
[2018-05-06] MEDS: AZITHROMYCIN 250 MG TABLET PO SCH (09:59)
[2018-05-06] MEDS: PRENATAL VITAMINS W/ FOLIC ACID TABLET (FP) PO SCH (09:59)
[2018-05-06] MEDS: guaiFENesin/D-METHORPHAN HB 10 ML UNIT-DOSE CUPS PO PRN (21:21)
[2018-05-06] MEDS: THIAMINE HCL 100 MG TABLET (FP) PO SCH (21:21)
[2018-05-06] MEDS: MELATONIN 5 MG TABLETS PO PRN (21:21)
[2018-05-06] MEDS: IBUPROFEN 400 MG TABLET (FP) PO PRN (21:22)
[2018-05-07] MEDS: P-EPHED 60MG/TRIPROLIDI 2.5MG TABLET PO PRN (06:42)
[2018-05-07] MEDS: PRENATAL VITAMINS W/ FOLIC ACID TABLET (FP) PO SCH (09:56)
[2018-05-07] MEDS: AZITHROMYCIN 250 MG TABLET PO SCH (09:56)
[2018-05-07] MEDS: THIAMINE HCL 100 MG TABLET (FP) PO SCH (21:24)
[2018-05-07] MEDS: IBUPROFEN 400 MG TABLET (FP) PO PRN (21:25)
[2018-05-07] MEDS: MELATONIN 5 MG TABLETS PO PRN (21:26)
[2018-05-08] MEDS: AZITHROMYCIN 250 MG TABLET PO SCH (10:08)
[2018-05-08] MEDS: PRENATAL VITAMINS W/ FOLIC ACID TABLET (FP) PO SCH (10:08)
[2018-05-08] MEDS: IBUPROFEN 400 MG TABLET (FP) PO PRN (21:15)
[2018-05-08] MEDS: THIAMINE HCL 100 MG TABLET (FP) PO SCH (21:15)
[2018-05-08] MEDS: MELATONIN 5 MG TABLETS PO PRN (21:15)
[2018-05-09] MEDS: PRENATAL VITAMINS W/ FOLIC ACID TABLET (FP) PO SCH (09:58)
[2018-05-09] MEDS: NICOTINE POLACRILEX 2 MG GUM BUC PRN ×2 (15:42→21:39)
[2018-05-09] MEDS: THIAMINE HCL 100 MG TABLET (FP) PO SCH (21:38)
[2018-05-09] MEDS: MELATONIN 5 MG TABLETS PO PRN (21:39)
[2018-05-09] MEDS: ACETAMINOPHEN 325 MG TABLET (FP) PO PRN (21:39)
[2018-05-10] MEDS: PRENATAL VITAMINS W/ FOLIC ACID TABLET (FP) PO SCH (09:54)
[2018-05-10] MEDS: ACETAMINOPHEN 325 MG TABLET (FP) PO PRN ×2 (09:55→21:11)
[2018-05-10] MEDS: THIAMINE HCL 100 MG TABLET (FP) PO SCH (21:11)
[2018-05-10] MEDS: MELATONIN 5 MG TABLETS PO PRN (21:11)
[2018-05-10] MEDS: IBUPROFEN 400 MG TABLET (FP) PO PRN (22:47)
[2018-05-11] MEDS: IBUPROFEN 400 MG TABLET (FP) PO PRN ×2 (09:47→21:22)
[2018-05-11] MEDS: PRENATAL VITAMINS W/ FOLIC ACID TABLET (FP) PO SCH (09:47)
[2018-05-11] MEDS: THIAMINE HCL 100 MG TABLET (FP) PO SCH (21:22)
[2018-05-11] MEDS: MELATONIN 5 MG TABLETS PO PRN (21:22)
[2018-05-12] MEDS: PRENATAL VITAMINS W/ FOLIC ACID TABLET (FP) PO SCH (10:13)
[2018-05-12] MEDS: HYDROCORTISONE 2.5% TOPICAL CREAM 30 GM TUBE TP PRN (10:14)
[2018-05-12] MEDS: IBUPROFEN 400 MG TABLET (FP) PO PRN (19:54)
[2018-05-12] MEDS: THIAMINE HCL 100 MG TABLET (FP) PO SCH (21:11)
[2018-05-12] MEDS: ACETAMINOPHEN 325 MG TABLET (FP) PO PRN (21:11)
[2018-05-12] MEDS: MELATONIN 5 MG TABLETS PO PRN (21:11)
[2018-05-13] MEDS: PRENATAL VITAMINS W/ FOLIC ACID TABLET (FP) PO SCH (09:58)
[2018-05-13] MEDS: IBUPROFEN 400 MG TABLET (FP) PO PRN ×2 (12:58→23:18)
--- NOTE | 2018-05-13 17:10 | PN ---
Psychiatric Progress Note Vital Signs: Vital Signs Period Temp Pulse Resp BP Sys/Rizzo Pulse Ox Last 24 Hr 98.5 F 60 16-18 110/67 Date of Session: 05/13/18 Chief Complaint:: Discharge visit HPI: Alcohol,Cocaine dependnce omorbid with substance induced mood disorderr. ROS: Significant for Hyperthyroidism. Current Medications: Active Medications Generic Name Dose Route Start Last Admin Trade Name Freq PRN Reason Stop Dose Admin Acetaminophen 650 mg 04/30/18 14:51 05/12/18 21:11 Tylenol - PO 650 mg Q4H PRN Administration FEVER Al Hydroxide/Mg Hydroxide 30 ml 04/30/18 14:51 Mylanta Oral Suspension - PO Q6H PRN DYSPEPSIA Eucalyptus/Menthol/Phenol/Sorbitol 1 each 04/30/18 14:51 Cepastat Lozenge - MM Q4H PRN SORE THROAT Guaifenesin 10 ml 04/30/18 14:51 05/06/18 21:21 Robitussin Dm - PO 10 ml Q6H PRN Administration COUGH Hydrocortisone 1 applic 04/30/18 20:17 05/12/18 10:14 Anusol 2.5% Hc Cream - TP 1 applic BID PRN Administration PAIN WITH HEMMARHOIDS Ibuprofen 400 mg 04/30/18 14:51 05/13/18 12:58 Motrin - PO 400 mg Q6H PRN Administration Pain Level 4-6 Loperamide HCl 4 mg 04/30/18 14:51 Imodium - PO Q6H PRN DIARRHEA Magnesium Citrate 300 ml 04/30/18 14:51 Citroma - PO Q48H PRN CONSTIPATION Magnesium Hydroxide 30 ml 04/30/18 14:51 Milk Of Magnesia - PO DAILY PRN CONSTIPATION Melatonin 10 mg 05/01/18 11:25 05/12/18 21:11 Melatonin PO 10 mg HS PRN Administration INSOMNIA Nicotine 14 mg 04/30/18 14:51 05/09/18 15:42 Nicoderm Patch - TD 14 mg DAILY PRN Administration WITHDRAWAL(CONT SUBST) Nicotine Polacrilex 2 mg 04/30/18 14:51 05/09/18 21:39 Nicorette Gum - BUC 2 mg Q2H PRN Administration NICOTINE REPLACEMENT RX Multivit/Folic Acid/Iron 1 tab 05/01/18 10:00 05/13/18 09:58 Vitamins (Sjr) - PO 1 tab DAILY EBEN Administration Pseudoephedrine/Triprolidine 1 combo 04/30/18 14:51 05/07/18 06:42 Actifed - PO 1 combo TID PRN Administration NASAL CONGESTION Thiamine HCl 100 mg 04/30/18 22:00 05/12/18 21:11 Vitamin B1 - PO 100 mg HS EBEN Administration Current Side Effect: No Lab tests ordered: No Lab tests reviewed: Yes Provider note:: Patient will complete this program tomorrow 05/14/18.She has met her treatment goals and will continue to address her issues on outpatient basis. Patient reports current medications help her to cope with anxiety,mood instability,sleeping difficulties. Scripts for 30 days provided. Patient is stable for discharge tomorrow 05/14 Total face to face time:: 30 Mental Status Exam - Mental Status Exam Alert and Oriented to: Time, Place, Person Patient Appearance: Well Groomed Mood: Euthymic Affect: Appropriate, Mood Congruent Patient Behavior: Appropriate, Cooperative Speech Pattern: Clear Voice Loudness: Normal Thought Process: Goal Oriented Hallucinations: Denies Suicidal Ideation: Denies Homicidal Ideation: Denies Insight/Judgement: Good Sleep: Fair Appetite: Fair Muscle strength/Tone: Normal Gait/Station: Normal Psychiatric Treatment Plan - Problem List (1) Cocaine dependence Current Visit: Yes Qualifiers: Substance use status: uncomplicated Qualified Code(s): F14.20 - Cocaine dependence, uncomplicated (2) Hyperthyroidism Current Visit: Yes (3) Substance-induced sleep disorder Current Visit: Yes (4) History of left knee surgery Current Visit: Yes
[2018-05-13] MEDS: THIAMINE HCL 100 MG TABLET (FP) PO SCH (21:44)
[2018-05-13] MEDS: MELATONIN 5 MG TABLETS PO PRN (21:44)
[2018-05-14 07:13] VITALS: BP 112/69; PULSE 67; TEMP 97.8
[2018-05-14] MEDS: PRENATAL VITAMINS W/ FOLIC ACID TABLET (FP) PO SCH (09:32)
[2018-05-14] MEDS: HYDROCORTISONE 2.5% TOPICAL CREAM 30 GM TUBE TP PRN (09:33)
== END 2018-05-14 09:45 | disposition home or self-care (01) | DRG 772 ==
LOC: YASAS 18:37 → Y3E 18:39
PROVIDERS: ADMIT Psychiatry & Neurology Psychiatry; ATTEND Psychiatry & Neurology Psychiatry
PROC: HZ42ZZZ Group Counseling for Substance Abuse Treatment, Cognitive-Behavioral (ICD-10-PCS; principal; 2018-04-30)
DX: F10.20 Alcohol dependence, uncomplicated (principal); F14.20 Cocaine dependence, uncomplicated; F19.282 Other psychoactive substance dependence with psychoactive substance-induced sleep disorder; J06.9 Acute upper respiratory infection, unspecified; E05.90 Thyrotoxicosis, unspecified without thyrotoxic crisis or storm; Z98.890 Other specified postprocedural states

== ENCOUNTER 2018-07-22 13:50 | Inpatient (IN) | payer OTHER ==
[2018-07-22] MEDS ORDERED: MAGNESIUM CITRATE 300 ML BOTTLE PO PRN (16:51)
[2018-07-22] MEDS ORDERED: guaiFENesin/D-METHORPHAN HB 10 ML UNIT-DOSE CUPS PO PRN (16:51)
[2018-07-22] MEDS ORDERED: LOPERAMIDE HCL 2 MG CAPSULE PO PRN (16:51)
[2018-07-22] MEDS ORDERED: MAG HYDROX/AL HYDROX/SIMETH 30 ML UNIT-DOSE CUP PO PRN (16:51)
[2018-07-22] MEDS ORDERED: P-EPHED 60MG/TRIPROLIDI 2.5MG TABLET PO PRN (16:51)
[2018-07-22] MEDS ORDERED: MENTHOL/PHENOL 1 EACH UD MM PRN (16:51)
[2018-07-22] MEDS ORDERED: MAGNESIUM HYDROX 2400MG/30ML ORAL SUSPENSION 30 ML CUP PO PRN (16:51)
--- NOTE | 2018-07-22 16:53 | HP ---
CIWA Score Nausea/Vomitin-No Nausea/No Vomiting Muscle Tremors: None Anxiety: 0-No Anxiety, at Ease Agitation: 0-Normal Activity Paroxysmal Sweats: No Perspiration Orientation: 0-Oriented Tacttile Disturbances: 0-None Auditory Disturbances: 0-None Visual Disturbances: 0-None Headache: 0-None Present CIWA-Ar Total Score: 0 - Admission Criteria OASAS Guidelines: Admission for Medically Managed Detox: Requires at least one of the followin. CIWA greater than 12 2. Seizures within the past 24 hours 3. Delirium tremens within the past 24 hours 4. Hallucinations within the past 24 hours 5. Acute intervention needed for co occurring medical disorder 6. Acute intervention needed for co occurring psychiatric disorder 7. Severe withdrawal that cannot be handled at a lower level of care (continued vomiting, continued diarrhea, abnormal vital signs) requiring intravenous medication and/or fluids 8. Admission ROS S - HPI Chief Complaint: here for rehab from cocaine. 58 yo old with high cholesterol, no other med problems. alcohol- pt states she drinks all day- but states she does not need detox, CIWA score 0 cocaine- $200-300/day DUR-no meds noted Utox- cocaine, JANNET negative Allergies/Adverse Reactions: Allergies Allergy/AdvReac Type Severity Reaction Status Date / Time No Known Allergies Allergy Verified 07/22/18 17:30 Exam Limitations: No Limitations - Ebola screening Have you traveled outside of the country in the last 21 days: No Have you had contact with anyone from an Ebola affected area: No Have you been sick,other than usual withdrawal symptoms: No Do you have a fever: No - Review of Systems Constitutional: No Symptoms Reported Patient History - Patient Medical History Hx Anemia: Yes (TAKING IRON PILLS) Hx Asthma: No Hx Chronic Obstructive Pulmonary Disease (COPD): No Hx Cancer: No Hx Cardiac Disorders: No Hx Congestive Heart Failure: No Hx Hypertension: No Hx Hypercholesterolemia: Yes (no med) Hx Pacemaker: No HX Cerebrovascular Accident: No Hx Seizures: No Hx Dementia: No Hx Diabetes: No Hx Gastrointestinal Disorders: No Hx Liver Disease: No Hx Genitourinary Disorders: No Hx Sexually Transmitted Disorders: No Hx Renal Disease (ESRD): No Hx Thyroid Disease: No Hx Human Immunodeficiency Virus (HIV): No (10/17 negative) Hx Hepatitis C: No Hx Depression: Yes Hx Suicide Attempt: No Hx Bipolar Disorder: No Hx Schizophrenia: No - Patient Surgical History Past Surgical History: Yes Hx Neurologic Surgery: No Hx Cataract Extraction: No Hx Cardiac Surgery: No Hx Lung Surgery: No Hx Breast Surgery: No Hx Breast Biopsy: No Hx Abdominal Surgery: No Hx Appendectomy: No Hx Cholecystectomy: No Hx Genitourinary Surgery: No Hx Section: Yes (1974 and 1979) Hx Orthopedic Surgery: Yes (Knee sx 1969. Metal brace on hips 2003 for fx) Anesthesia Reaction: No - PPD History Date: 03/09/18 Results: 0mm PPD to be Administered?: No - Reproductive History Last Menstrual Period: 09/02/10 - Smoking Cessation Smoking history: Former smoker Have you smoked in the past 12 months: No Aproximately how many cigarettes per day: 0 If you are a former smoker, when did you quit?: 08/19/2011 Cigars Per Day: 0 Hx Chewing Tobacco Use: No Initiated information on smoking cessation: Yes 'Breaking Loose' booklet given: 07/22/18 - Substance & Tx. History Hx Alcohol Use: Yes Hx Substance Use: No Substance Use Type: Alcohol, Cocaine Hx Substance Use Treatment: Yes - Substances Abused Alcohol Route: Oral Frequency: Daily Amount used: 3 SIX PACKS OF BEER Age of first use: 31 Date of Last Use: 07/21/18 Crack Route: Smoking Frequency: Daily Amount used: $300 Age of first use: 31 Date of Last Use: 07/21/18 Family Disease History - Family Disease History Family Disease History: Other: Father (alcohol,cva,), Mother (alcoholic , from leukemia) Admission Physical Exam S - Vital Signs Vital Signs: Vital Signs - 24 hr 07/22/18 14:11 Temperature 97.4 F L Pulse Rate 78 Respiratory 18 Rate Blood Pressure 111/70 - Physical General Appearance: Yes: Within Normal Limits HEENTM: Yes: Within Normal Limits Respiratory: Yes: Within Normal Limits Neck: Yes: Within Normal Limits Cardiology: Yes: Within Normal Limits, Regular Rate, S1, S2 Abdominal: Yes: Within Normal Limits Genitourinary: Yes: Within Normal Limits Back: Yes: Within Normal Limits Musculoskeletal: Yes: Within Normal Limits Extremities: Yes: Other (pt has a small open area at R achilles tendon from shoe being too tight- no evidence of infection) Integumentary: Yes: Within Normal Limits Lymphatic: Yes: Within Normal Limits [facility] Breath Alcohol Content Breath Alcohol Content: 0 Urine Pregancy Test - Result Urine Test Results: Negative - NO Line Present Urine Drug Screen - Results Drug Screen Negative: No Urine Drug Screen Results: LILIANA-Cocaine Inpatient Rehab Admission - Rehab Decision to Admit Inpatient rehab admission?: Yes - Initial Determination Are CD services needed?: Yes Free of communicable disease: Yes Not in need of hospitalization: Yes - Rehab Admission Criteria Previous failed treatment: Yes Poor recovery environment: Yes Comorbidities: No Lacks judgement: No Patient is meeting Inpatient Rehab admission criteria:: Yes (pt is using cocaine - crack and has tried several times to stop)
[2018-07-22] MEDS: THIAMINE HCL 100 MG TABLET (FP) PO SCH (21:36)
[2018-07-23] MEDS: ACETAMINOPHEN 325 MG TABLET (FP) PO PRN ×2 (09:06→21:18)
[2018-07-23] MEDS: PRENATAL VITAMINS W/ FOLIC ACID TABLET (FP) PO SCH (09:07)
[2018-07-23 10:41] LABS: HEMATOCRIT 34.4 % (32.4-45.2); MCH 33.7 pg (25.7-33.7); MEAN CELL VOLUME 96.3 fl (80-96); MEAN PLT VOLUME 7.3 fl (7.5-11.1); PLATELET COUNT 317 K/MM3 (134-434); RBC 3.57 M/mm3 (3.60-5.2); RDW 12.9 % (11.6-15.6); WHITE BLOOD COUNT 3.8 K/mm3 (4.0-10.0)
[2018-07-23 11:38] LABS: ALBUMIN 3.8 g/dl (3.4-5.0); ALK PHOS 63 U/L (45-117); ANION GAP 6 MMOL/L (8-16); BILIRUBIN,TOTAL 0.5 mg/dL (0.2-1); BLOOD UREA NITROGEN 19 mg/dL (7-18); CALCIUM 9.3 mg/dL (8.5-10.1); CHLORIDE 108 mmol/L (98-107); CO2 26 mmol/L (21-32); CREATININE 0.9 mg/dL (0.55-1.3); GLUCOSE,RANDOM 95 mg/dL (74-106); SGOT/AST 31 U/L (15-37); SGPT/ALT 31 U/L (13-61); SODIUM 140 mmol/L (136-145); TOT PROT 6.9 g/dl (6.4-8.2)
[2018-07-23] MEDS: THIAMINE HCL 100 MG TABLET (FP) PO SCH (21:16)
[2018-07-23] MEDS: hydrOXYzine PAMOATE 25 MG CAPSULE (FP) PO PRN (21:18)
[2018-07-23] MEDS: MELATONIN 5 MG TABLETS PO PRN (21:18)
[2018-07-24] MEDS: PRENATAL VITAMINS W/ FOLIC ACID TABLET (FP) PO SCH (10:01)
[2018-07-24] MEDS: ACETAMINOPHEN 325 MG TABLET (FP) PO PRN (10:02)
[2018-07-24] MEDS: IBUPROFEN 400 MG TABLET (FP) PO PRN (14:10)
[2018-07-24] MEDS: THIAMINE HCL 100 MG TABLET (FP) PO SCH (21:17)
[2018-07-24] MEDS: MELATONIN 5 MG TABLETS PO PRN (21:18)
[2018-07-25] MEDS: PRENATAL VITAMINS W/ FOLIC ACID TABLET (FP) PO SCH (10:08)
[2018-07-25] MEDS: IBUPROFEN 400 MG TABLET (FP) PO PRN (10:09)
[2018-07-25] MEDS: MELATONIN 5 MG TABLETS PO PRN (21:06)
[2018-07-25] MEDS: hydrOXYzine PAMOATE 25 MG CAPSULE (FP) PO PRN (21:06)
[2018-07-25] MEDS: THIAMINE HCL 100 MG TABLET (FP) PO SCH (21:07)
[2018-07-26] MEDS: PRENATAL VITAMINS W/ FOLIC ACID TABLET (FP) PO SCH (09:54)
[2018-07-26] MEDS: MELATONIN 5 MG TABLETS PO PRN (21:20)
[2018-07-26] MEDS: THIAMINE HCL 100 MG TABLET (FP) PO SCH (21:20)
[2018-07-26] MEDS: hydrOXYzine PAMOATE 25 MG CAPSULE (FP) PO PRN (21:22)
[2018-07-27] MEDS: PRENATAL VITAMINS W/ FOLIC ACID TABLET (FP) PO SCH (09:57)
[2018-07-27] MEDS: IBUPROFEN 400 MG TABLET (FP) PO PRN (09:58)
[2018-07-27] MEDS: hydrOXYzine PAMOATE 25 MG CAPSULE (FP) PO PRN (21:20)
[2018-07-27] MEDS: MELATONIN 5 MG TABLETS PO PRN (21:20)
[2018-07-27] MEDS: THIAMINE HCL 100 MG TABLET (FP) PO SCH (21:20)
[2018-07-28] MEDS: PRENATAL VITAMINS W/ FOLIC ACID TABLET (FP) PO SCH (10:07)
[2018-07-28] MEDS: THIAMINE HCL 100 MG TABLET (FP) PO SCH (21:06)
[2018-07-28] MEDS: MELATONIN 5 MG TABLETS PO PRN (21:08)
[2018-07-28] MEDS: IBUPROFEN 400 MG TABLET (FP) PO PRN (21:08)
[2018-07-28] MEDS: hydrOXYzine PAMOATE 25 MG CAPSULE (FP) PO PRN (21:09)
[2018-07-29] MEDS: PRENATAL VITAMINS W/ FOLIC ACID TABLET (FP) PO SCH (09:55)
[2018-07-29] MEDS: IBUPROFEN 400 MG TABLET (FP) PO PRN (17:39)
[2018-07-29] MEDS: THIAMINE HCL 100 MG TABLET (FP) PO SCH (21:50)
[2018-07-29] MEDS: hydrOXYzine PAMOATE 25 MG CAPSULE (FP) PO PRN (21:50)
[2018-07-29] MEDS: MELATONIN 5 MG TABLETS PO PRN (21:51)
[2018-07-30] MEDS: PRENATAL VITAMINS W/ FOLIC ACID TABLET (FP) PO SCH (10:06)
[2018-07-30] MEDS: hydrOXYzine PAMOATE 25 MG CAPSULE (FP) PO PRN (21:05)
[2018-07-30] MEDS: MELATONIN 5 MG TABLETS PO PRN (21:05)
[2018-07-30] MEDS: THIAMINE HCL 100 MG TABLET (FP) PO SCH (21:05)
[2018-07-31] MEDS: PRENATAL VITAMINS W/ FOLIC ACID TABLET (FP) PO SCH (10:02)
[2018-07-31] MEDS: hydrOXYzine PAMOATE 25 MG CAPSULE (FP) PO PRN (21:41)
[2018-07-31] MEDS: MELATONIN 5 MG TABLETS PO PRN (21:41)
[2018-07-31] MEDS: THIAMINE HCL 100 MG TABLET (FP) PO SCH (21:42)
[2018-08-01] MEDS: PRENATAL VITAMINS W/ FOLIC ACID TABLET (FP) PO SCH (10:01)
[2018-08-01] MEDS: THIAMINE HCL 100 MG TABLET (FP) PO SCH (21:11)
[2018-08-01] MEDS: hydrOXYzine PAMOATE 25 MG CAPSULE (FP) PO PRN (21:12)
[2018-08-01] MEDS: MELATONIN 5 MG TABLETS PO PRN (21:12)
[2018-08-01] MEDS: ACETAMINOPHEN 325 MG TABLET (FP) PO PRN (21:14)
[2018-08-02] MEDS: PRENATAL VITAMINS W/ FOLIC ACID TABLET (FP) PO SCH (09:54)
[2018-08-02] MEDS: IBUPROFEN 400 MG TABLET (FP) PO PRN (16:58)
[2018-08-02] MEDS: THIAMINE HCL 100 MG TABLET (FP) PO SCH (21:24)
[2018-08-02] MEDS: ACETAMINOPHEN 325 MG TABLET (FP) PO PRN (21:25)
[2018-08-02] MEDS: hydrOXYzine PAMOATE 25 MG CAPSULE (FP) PO PRN (21:25)
[2018-08-02] MEDS: MELATONIN 5 MG TABLETS PO PRN (21:25)
[2018-08-03] MEDS: PRENATAL VITAMINS W/ FOLIC ACID TABLET (FP) PO SCH (09:49)
[2018-08-03] MEDS ORDERED: MAGNESIUM CITRATE 300 ML BOTTLE PO ONE (17:48)
--- NOTE | 2018-08-03 17:52 | PN ---
[facility] Progress Note (SOAP) Subjective: .C/o "vertigo". States head is spinning. States was medicated in past but doesn' t remember name. Objective: Alert and oriented. Gait steady. No tremors. LANI. BHG =; Vital Signs - 24 hr 08/03/18 08/03/18 08/03/18 00:30 03:30 07:08 Temperature 97.6 F Pulse Rate 67 Respiratory 18 18 18 Rate Blood Pressure 95/59 L Laboratory Last Values WBC 3.8 K/mm3 (4.0-10.0) L 07/22/18 06:00 RBC 3.57 M/mm3 (3.60-5.2) L 07/22/18 06:00 Hgb 12.0 GM/dL (10.7-15.3) 07/22/18 06:00 Hct 34.4 % (32.4-45.2) 07/22/18 06:00 MCV 96.3 fl (80-96) H 07/22/18 06:00 MCH 33.7 pg (25.7-33.7) 07/22/18 06:00 MCHC 35.0 g/dl (32.0-36.0) 07/22/18 06:00 RDW 12.9 % (11.6-15.6) 07/22/18 06:00 Plt Count 317 K/MM3 (134-434) 07/22/18 06:00 MPV 7.3 fl (7.5-11.1) L 07/22/18 06:00 Sodium 140 mmol/L (136-145) 07/22/18 08:38 Potassium 4.0 mmol/L (3.5-5.1) 07/22/18 08:38 Chloride 108 mmol/L (98-107) H 07/22/18 08:38 Carbon Dioxide 26 mmol/L (21-32) 07/22/18 08:38 Anion Gap 6 MMOL/L (8-16) L 07/22/18 08:38 BUN 19 mg/dL (7-18) H 07/22/18 08:38 Creatinine 0.9 mg/dL (0.55-1.3) 07/22/18 08:38 Creat Clearance w eGFR > 60 (>60) 07/22/18 08:38 POC Glucometer 130 UNITS (80-120) 08/02/18 10:55 Random Glucose 95 mg/dL (74-106) 07/22/18 08:38 Calcium 9.3 mg/dL (8.5-10.1) 07/22/18 08:38 Total Bilirubin 0.5 mg/dL (0.2-1) 07/22/18 08:38 AST 31 U/L (15-37) 07/22/18 08:38 ALT 31 U/L (13-61) 07/22/18 08:38 Alkaline Phosphatase 63 U/L (45-117) 07/22/18 08:38 Total Protein 6.9 g/dl (6.4-8.2) 07/22/18 08:38 Albumin 3.8 g/dl (3.4-5.0) 07/22/18 08:38 RPR Titer Nonreactive (NONREACTIVE) 07/22/18 08:38 HIV 1&2 Antibody Screen Negative 07/23/18 08:38 HIV P24 Antigen Negative 07/23/18 08:38 Labs reviewed. Patient's home pharmacy called and no medications for vertigo have been filled. Assessment: Decreased blood Pressure Alcohol and cocaine remission Decreased RBC's. Plan: Encourage 2 pitchers water daily. Encourage to add some salt to food. Discussed positional changes to avoid vertigo r/t hypotension. Add additional iron to vitamin supplements.
[2018-08-03] MEDS: FERROUS SO4 325 MG TABLET (FP) PO SCH (18:30)
[2018-08-03] MEDS: hydrOXYzine PAMOATE 25 MG CAPSULE (FP) PO PRN (21:17)
[2018-08-03] MEDS: THIAMINE HCL 100 MG TABLET (FP) PO SCH (21:17)
[2018-08-03] MEDS: MELATONIN 5 MG TABLETS PO PRN (21:17)
[2018-08-03] MEDS ORDERED: DOCUSATE SODIUM 100 MG CAPSULE (FP) PO SCH (22:00)
[2018-08-04] MEDS: PRENATAL VITAMINS W/ FOLIC ACID TABLET (FP) PO SCH (09:57)
[2018-08-04] MEDS: FERROUS SO4 325 MG TABLET (FP) PO SCH (17:10)
[2018-08-04] MEDS: hydrOXYzine PAMOATE 25 MG CAPSULE (FP) PO PRN (21:02)
[2018-08-04] MEDS: MELATONIN 5 MG TABLETS PO PRN (21:02)
[2018-08-04] MEDS: THIAMINE HCL 100 MG TABLET (FP) PO SCH (21:02)
[2018-08-05 07:07] VITALS: BP 111/74; PULSE 69; TEMP 97.8
--- NOTE | 2018-08-05 09:27 | PN ---
[facility] Progress Note Note: PT COMPLETED REHAB AND DISCHARGED TODAY. PT MET WITH COUNSELLING AND HAS BEEN REFERRED TO [facility] FOR CD AFTERCARE. PT REPORTS SHE HAS PRIMARY CARE WITH [facility]. Home Medications Medication Instructions Recorded NK [No Known Home Medication] 03/11/17 Vital Signs (72 hours) 08/03/18 08/03/18 08/03/18 00:30 03:30 07:08 Temperature 97.6 F Pulse Rate 67 Respiratory 18 18 18 Rate Blood Pressure 95/59 L 08/04/18 08/04/18 08/04/18 00:30 03:30 06:48 Temperature 97.6 F Pulse Rate 61 Respiratory 18 18 16 Rate Blood Pressure 97/63 08/05/18 08/05/18 08/05/18 00:30 03:30 07:05 Temperature 97.8 F Pulse Rate 69 Respiratory 18 18 18 Rate Blood Pressure 111/74 Laboratory Tests 07/22/18 07/22/18 07/22/18 06:00 08:38 08:38 WBC 3.8 L RBC 3.57 L Hgb 12.0 Hct 34.4 MCV 96.3 H MCH 33.7 MCHC 35.0 RDW 12.9 Plt Count 317 MPV 7.3 L Sodium 140 Potassium 4.0 Chloride 108 H Carbon Dioxide 26 Anion Gap 6 L BUN 19 H Creatinine 0.9 Creat Clearance w eGFR > 60 POC Glucometer Random Glucose 95 Calcium 9.3 Total Bilirubin 0.5 AST 31 ALT 31 Alkaline Phosphatase 63 Total Protein 6.9 Albumin 3.8 RPR Titer Nonreactive HIV 1&2 Antibody Screen HIV P24 Antigen 07/23/18 08/02/18 08:38 10:55 WBC RBC Hgb Hct MCV MCH MCHC RDW Plt Count MPV Sodium Potassium Chloride Carbon Dioxide Anion Gap BUN Creatinine Creat Clearance w eGFR POC Glucometer 130 Random Glucose Calcium Total Bilirubin AST ALT Alkaline Phosphatase Total Protein Albumin RPR Titer HIV 1&2 Antibody Screen Negative HIV P24 Antigen Negative NAD MEDICALLY STABLE PLAN:FOLLOW UP WITH [facility] FOR CD AFTERCARE RECOMMENDED FOLLOW UP WITH YOUR PCP AT [facility].
[2018-08-05] MEDS: PRENATAL VITAMINS W/ FOLIC ACID TABLET (FP) PO SCH (09:32)
== END 2018-08-05 09:36 | disposition home or self-care (01) | DRG 772 ==
LOC: YASAS 13:50 → Y3E 17:36
PROVIDERS: ADMIT Neuromusculoskeletal Medicine & OMM; ATTEND Neuromusculoskeletal Medicine & OMM
PROC: HZ42ZZZ Group Counseling for Substance Abuse Treatment, Cognitive-Behavioral (ICD-10-PCS; principal; 2018-07-22)
DX: F10.20 Alcohol dependence, uncomplicated (principal); F14.20 Cocaine dependence, uncomplicated; D64.9 Anemia, unspecified; Z87.891 Personal history of nicotine dependence
CPT/HCPCS: 36415; 80053; 82962; 85027; 86593; 87389

== ENCOUNTER 2019-03-24 08:53 | Inpatient (IN) | payer OTHER ==
[2019-03-24 09:34] VITALS: BMI 20.8
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
[2019-03-24] MEDS ORDERED: guaiFENesin 200 MG/10 ML 10 ML UNIT-DOSE CUPS PO PRN (10:29)
[2019-03-24] MEDS ORDERED: MAGNESIUM CITRATE 300 ML BOTTLE PO PRN (10:29)
[2019-03-24] MEDS ORDERED: MENTHOL/PHENOL 1 EACH UD MM PRN (10:29)
[2019-03-24] MEDS ORDERED: LOPERAMIDE HCL 2 MG CAPSULE PO PRN (10:29)
[2019-03-24] MEDS ORDERED: MAGNESIUM HYDROX 2400MG/30ML ORAL SUSPENSION 30 ML CUP PO PRN (10:29)
[2019-03-24] MEDS ORDERED: MAG HYDROX/AL HYDROX/SIMETH 30 ML UNIT-DOSE CUP PO PRN (10:29)
[2019-03-24] MEDS ORDERED: P-EPHED 60MG/TRIPROLIDI 2.5MG TABLET PO PRN (10:29)
[2019-03-24] MEDS ORDERED: MECLIZINE HCL 12.5 MG TABLET PO PRN (10:30)
[2019-03-24] MEDS: IBUPROFEN 400 MG TABLET (FP) PO PRN ×2 (12:24→21:12)
[2019-03-24 14:33] LABS: HEMATOCRIT 38.2 % (32.4-45.2); HEMOGLOBIN 12.8 GM/dL (10.7-15.3); MCH 33.1 pg (25.7-33.7); MCHC 33.5 g/dl (32.0-36.0); MEAN CELL VOLUME 98.6 fl (80-96); MEAN PLT VOLUME 7.8 fl (7.5-11.1); PLATELET COUNT 296 K/MM3 (134-434); RBC 3.87 M/mm3 (3.60-5.2); RDW 13.8 % (11.6-15.6); WHITE BLOOD COUNT 3.1 K/mm3 (4.0-10.0)
[2019-03-24 14:41] LABS: ALBUMIN 3.8 g/dl (3.4-5.0); BILIRUBIN,TOTAL 0.4 mg/dL (0.2-1); BLOOD UREA NITROGEN 16.8 mg/dL (7-18); CALCIUM 8.8 mg/dL (8.5-10.1); POTASSIUM 4.1 mmol/L (3.5-5.1); TOT PROT 7.2 g/dl (6.4-8.2)
[2019-03-24] MEDS: MELATONIN 5 MG TABLETS PO PRN (21:13)
[2019-03-24] MEDS: THIAMINE HCL 100 MG TABLET (FP) PO SCH (21:13)
[2019-03-24] MEDS ORDERED: PT OWN MED DRAWER 7, Y5N ONE (21:14)
[2019-03-25] MEDS: IBUPROFEN 400 MG TABLET (FP) PO PRN ×2 (10:21→21:33)
[2019-03-25] MEDS: PRENATAL VITAMINS W/ FOLIC ACID TABLET (FP) PO SCH (10:21)
[2019-03-25] MEDS: ACETAMINOPHEN 325 MG TABLET (FP) PO PRN (14:31)
[2019-03-25 18:49] LABS: EPI CELLS 23.8 /HPF (0-5/HPF); HYALINE CASTS 20 /lpf (0-8); URINE APPEARANCE TURBID; URINE BACTERIA 6595.4 /hpf (NEGATIVE); URINE BILIRUBIN NEGATIVE (NEGATIVE); URINE COLOR DK YELLOW; URINE GLUCOSE (UA) NEGATIVE (NEGATIVE); URINE KETONE TRACE (NEGATIVE); URINE LEUK ESTERASE TRACE (NEGATIVE); URINE NITRITE POSITIVE (NEGATIVE); URINE PROTEIN TRACE (NEGATIVE); URINE RBC 13 /hpf (0-4); URINE WBC 6 /hpf (0-5)
[2019-03-25 19:11] LABS: URINE CRYSTALS POSITIVE /hpf
[2019-03-25] MEDS: THIAMINE HCL 100 MG TABLET (FP) PO SCH (21:32)
[2019-03-25] MEDS: MELATONIN 5 MG TABLETS PO PRN (21:34)
[2019-03-26] MEDS: PRENATAL VITAMINS W/ FOLIC ACID TABLET (FP) PO SCH (10:07)
[2019-03-26] MEDS: IBUPROFEN 400 MG TABLET (FP) PO PRN ×2 (10:07→21:28)
--- NOTE | 2019-03-26 14:09 | PN ---
[facility] Progress Note Note: Patient evaluated for abnormal UA results. Laboratory Tests 03/24/19 03/24/19 03/24/19 11:05 11:05 11:05 WBC 3.1 L RBC 3.87 Hgb 12.8 Hct 38.2 MCV 98.6 H MCH 33.1 MCHC 33.5 RDW 13.8 Plt Count 296 MPV 7.8 Sodium 141 Potassium 4.1 Chloride 109 H Carbon Dioxide 25 Anion Gap 7 L BUN 16.8 Creatinine 1.0 Est GFR (CKD-EPI)AfAm 70.91 Est GFR (CKD-EPI)NonAf 61.19 Random Glucose 108 H Calcium 8.8 Total Bilirubin 0.4 AST 31 ALT 27 Alkaline Phosphatase 65 Total Protein 7.2 Albumin 3.8 Urine Color Urine Appearance Urine pH Ur Specific [place] Urine Protein Urine Glucose (UA) Urine Ketones Urine Blood Urine Nitrite Urine Bilirubin Urine Urobilinogen Ur Leukocyte Esterase Urine WBC (Auto) Urine RBC (Auto) Urine Casts (Auto) U Pathogenic Cast Auto U Epithel Cells (Auto) Urine Crystals (Auto) Urine Bacteria (Auto) RPR Titer Nonreactive 03/24/19 23:15 WBC RBC Hgb Hct MCV MCH MCHC RDW Plt Count MPV Sodium Potassium Chloride Carbon Dioxide Anion Gap BUN Creatinine Est GFR (CKD-EPI)AfAm Est GFR (CKD-EPI)NonAf Random Glucose Calcium Total Bilirubin AST ALT Alkaline Phosphatase Total Protein Albumin Urine Color Dk yellow Urine Appearance Turbid Urine pH 5.0 Ur Specific [place] 1.036 H Urine Protein Trace Urine Glucose (UA) Negative Urine Ketones Trace H Urine Blood 2+ H Urine Nitrite Positive H Urine Bilirubin Negative Urine Urobilinogen 1.0 Ur Leukocyte Esterase Trace Urine WBC (Auto) 6 Urine RBC (Auto) 13 Urine Casts (Auto) 20 U Pathogenic Cast Auto Positive U Epithel Cells (Auto) 23.8 Urine Crystals (Auto) Positive Urine Bacteria (Auto) 6595.4 RPR Titer Vital Signs Temperature 98.3 F 03/26/19 07:10 Pulse Rate 57 L 03/26/19 07:10 Respiratory Rate 18 03/26/19 07:10 Blood Pressure 120/74 03/26/19 07:10 O2 Sat by Pulse Oximetry (%) ROS: denies urinary frequency, burning and pelvic discomfort. PE: alert and oriented x 3 skin warm and dry +perrla, eoms intact bl car s1s2, RRR, no murmurs or gallops resp cta bl, no wheezing or rales gi nt, nd, neg cvat, BS+ ext full rom, amb ad davina A/P: UTI encourage oral fluids start bactrim ds one tab bid x 7 days monitor clinically
[2019-03-26] MEDS: ACETAMINOPHEN 325 MG TABLET (FP) PO PRN (14:18)
[2019-03-26] MEDS: MELATONIN 5 MG TABLETS PO PRN (21:26)
[2019-03-26] MEDS: SULFAMETHOXAZOLE/TRIMETHOPRIM 800MG/160MG D.S. TABLET PO SCH (21:26)
[2019-03-26] MEDS: THIAMINE HCL 100 MG TABLET (FP) PO SCH (21:26)
[2019-03-27] MEDS: SULFAMETHOXAZOLE/TRIMETHOPRIM 800MG/160MG D.S. TABLET PO SCH ×2 (10:17→21:20)
[2019-03-27] MEDS: PRENATAL VITAMINS W/ FOLIC ACID TABLET (FP) PO SCH (10:17)
[2019-03-27] MEDS: IBUPROFEN 400 MG TABLET (FP) PO PRN ×2 (13:18→21:21)
[2019-03-27] MEDS: THIAMINE HCL 100 MG TABLET (FP) PO SCH (21:20)
[2019-03-27] MEDS: MELATONIN 5 MG TABLETS PO PRN (21:22)
[2019-03-28] MEDS: PRENATAL VITAMINS W/ FOLIC ACID TABLET (FP) PO SCH (10:23)
[2019-03-28] MEDS: IBUPROFEN 400 MG TABLET (FP) PO PRN (10:23)
[2019-03-28] MEDS: SULFAMETHOXAZOLE/TRIMETHOPRIM 800MG/160MG D.S. TABLET PO SCH ×2 (10:23→21:18)
[2019-03-28] MEDS: THIAMINE HCL 100 MG TABLET (FP) PO SCH (21:17)
[2019-03-28] MEDS: MELATONIN 5 MG TABLETS PO PRN (21:18)
[2019-03-28] MEDS: ACETAMINOPHEN 325 MG TABLET (FP) PO PRN (21:18)
[2019-03-29] MEDS: SULFAMETHOXAZOLE/TRIMETHOPRIM 800MG/160MG D.S. TABLET PO SCH ×2 (10:28→21:12)
[2019-03-29] MEDS: PRENATAL VITAMINS W/ FOLIC ACID TABLET (FP) PO SCH (10:28)
[2019-03-29] MEDS: IBUPROFEN 400 MG TABLET (FP) PO PRN (10:29)
[2019-03-29] MEDS: MELATONIN 5 MG TABLETS PO PRN (21:10)
[2019-03-29] MEDS: THIAMINE HCL 100 MG TABLET (FP) PO SCH (21:10)
[2019-03-29] MEDS: ACETAMINOPHEN 325 MG TABLET (FP) PO PRN (21:11)
[2019-03-30] MEDS: ACETAMINOPHEN 325 MG TABLET (FP) PO PRN ×2 (10:29→21:55)
[2019-03-30] MEDS: PRENATAL VITAMINS W/ FOLIC ACID TABLET (FP) PO SCH (10:29)
[2019-03-30] MEDS: SULFAMETHOXAZOLE/TRIMETHOPRIM 800MG/160MG D.S. TABLET PO SCH ×2 (10:29→21:56)
[2019-03-30] MEDS: IBUPROFEN 400 MG TABLET (FP) PO PRN (13:22)
[2019-03-30] MEDS: MELATONIN 5 MG TABLETS PO PRN (21:56)
[2019-03-30] MEDS: THIAMINE HCL 100 MG TABLET (FP) PO SCH (21:56)
[2019-03-30] MEDS: diphenhydrAMINE HCL 25 MG CAPSULE (FP) PO PRN (21:57)
[2019-03-30] MEDS: HYDROCORTISONE 1% TOPICAL OINT 30 GM TUBE TP PRN (21:58)
[2019-03-31] MEDS: SULFAMETHOXAZOLE/TRIMETHOPRIM 800MG/160MG D.S. TABLET PO SCH ×2 (10:17→22:41)
[2019-03-31] MEDS: PRENATAL VITAMINS W/ FOLIC ACID TABLET (FP) PO SCH (10:17)
[2019-03-31] MEDS: ACETAMINOPHEN 325 MG TABLET (FP) PO PRN ×2 (10:17→22:43)
[2019-03-31] MEDS ORDERED: PT OWN MED DRAWER 7, Y5N ONE ×2 (10:18→22:44)
[2019-03-31] MEDS: HYDROCORTISONE 1% TOPICAL OINT 30 GM TUBE TP PRN ×2 (10:18→22:44)
[2019-03-31] MEDS: MELATONIN 5 MG TABLETS PO PRN (22:41)
[2019-03-31] MEDS: THIAMINE HCL 100 MG TABLET (FP) PO SCH (22:41)
[2019-03-31] MEDS: diphenhydrAMINE HCL 25 MG CAPSULE (FP) PO PRN (22:42)
[2019-04-01] MEDS: SULFAMETHOXAZOLE/TRIMETHOPRIM 800MG/160MG D.S. TABLET PO SCH ×2 (10:32→21:39)
[2019-04-01] MEDS: PRENATAL VITAMINS W/ FOLIC ACID TABLET (FP) PO SCH (10:33)
[2019-04-01] MEDS: diphenhydrAMINE HCL 25 MG CAPSULE (FP) PO PRN ×2 (11:07→21:41)
[2019-04-01] MEDS: THIAMINE HCL 100 MG TABLET (FP) PO SCH (21:39)
[2019-04-01] MEDS: ACETAMINOPHEN 325 MG TABLET (FP) PO PRN (21:40)
[2019-04-01] MEDS: MELATONIN 5 MG TABLETS PO PRN (21:41)
[2019-04-02] MEDS: SULFAMETHOXAZOLE/TRIMETHOPRIM 800MG/160MG D.S. TABLET PO SCH (10:33)
[2019-04-02] MEDS: PRENATAL VITAMINS W/ FOLIC ACID TABLET (FP) PO SCH (10:34)
[2019-04-02] MEDS: HYDROCORTISONE 1% TOPICAL OINT 30 GM TUBE TP PRN (10:46)
[2019-04-02] MEDS: MELATONIN 5 MG TABLETS PO PRN (22:08)
[2019-04-02] MEDS: diphenhydrAMINE HCL 25 MG CAPSULE (FP) PO PRN (22:08)
[2019-04-02] MEDS: THIAMINE HCL 100 MG TABLET (FP) PO SCH (22:08)
[2019-04-02] MEDS: IBUPROFEN 400 MG TABLET (FP) PO PRN (22:09)
[2019-04-03] MEDS ORDERED: PT OWN MED DRAWER 7, Y5N ONE (07:32)
[2019-04-03] MEDS: HYDROCORTISONE 1% TOPICAL OINT 30 GM TUBE TP PRN (07:33)
[2019-04-03] MEDS: ACETAMINOPHEN 325 MG TABLET (FP) PO PRN (10:05)
[2019-04-03] MEDS: PRENATAL VITAMINS W/ FOLIC ACID TABLET (FP) PO SCH (10:05)
[2019-04-03] MEDS: THIAMINE HCL 100 MG TABLET (FP) PO SCH (21:26)
[2019-04-03] MEDS: MELATONIN 5 MG TABLETS PO PRN (21:26)
[2019-04-04] MEDS: PRENATAL VITAMINS W/ FOLIC ACID TABLET (FP) PO SCH (10:02)
[2019-04-04] MEDS: ACETAMINOPHEN 325 MG TABLET (FP) PO PRN ×2 (10:02→21:26)
[2019-04-04] MEDS: HYDROCORTISONE 1% TOPICAL OINT 30 GM TUBE TP PRN (10:03)
[2019-04-04] MEDS: THIAMINE HCL 100 MG TABLET (FP) PO SCH (21:26)
[2019-04-04] MEDS: MELATONIN 5 MG TABLETS PO PRN (21:26)
[2019-04-05] MEDS ORDERED: diphenhydrAMINE HCL 25 MG CAPSULE (FP) PO PRN (08:46)
[2019-04-05] MEDS: PRENATAL VITAMINS W/ FOLIC ACID TABLET (FP) PO SCH (09:52)
[2019-04-05] MEDS: HYDROCORTISONE 1% TOPICAL OINT 30 GM TUBE TP PRN (09:53)
[2019-04-05] MEDS: ACETAMINOPHEN 325 MG TABLET (FP) PO PRN (09:54)
[2019-04-05] MEDS ORDERED: diphenhydrAMINE HCL 25 MG CAPSULE (FP) PO SCH (10:00)
[2019-04-05] MEDS: THIAMINE HCL 100 MG TABLET (FP) PO SCH (21:45)
[2019-04-05] MEDS: MELATONIN 5 MG TABLETS PO PRN (21:45)
[2019-04-06 07:18] VITALS: BP 117/78; PULSE 68; TEMP 98.2
--- NOTE | 2019-04-06 08:20 | DS ---
[facility] Rehab Discharge Summary - [facility] Rehab Discharge Summary Admission Date: 03/24/19 Discharge Date: 04/08/19 - History Present History: Alcohol dependence, Cocaine dependence Additional Comments: Pt is a 59 y/o female with a hx of alcohol and cocaine dependence admitted to rehab and discharged today. Pertinent Past History: Hyperthyroidism Mood disorder - Discharge Physical Exam Vital Signs: Vital Signs Temperature 98.2 F 04/06/19 07:17 Pulse Rate 68 04/06/19 07:17 Respiratory Rate 18 04/06/19 07:17 Blood Pressure 117/78 04/06/19 07:17 O2 Sat by Pulse Oximetry (%) Alert o x 3 nad oob ambulating with steady gait cardiac:s1 s2,rrr lungs:cta,fili. abdomen:soft,+bs,nt,nd extremities/skin:no edema, full ROM, skin intact. Pertinent Admission Physical Exam Findings: Laboratory Tests 03/24/19 03/24/19 03/24/19 11:05 11:05 11:05 WBC 3.1 L RBC 3.87 Hgb 12.8 Hct 38.2 MCV 98.6 H MCH 33.1 MCHC 33.5 RDW 13.8 Plt Count 296 MPV 7.8 Sodium 141 Potassium 4.1 Chloride 109 H Carbon Dioxide 25 Anion Gap 7 L BUN 16.8 Creatinine 1.0 Est GFR (CKD-EPI)AfAm 70.91 Est GFR (CKD-EPI)NonAf 61.19 Random Glucose 108 H Calcium 8.8 Total Bilirubin 0.4 AST 31 ALT 27 Alkaline Phosphatase 65 Total Protein 7.2 Albumin 3.8 Urine Color Urine Appearance Urine pH Ur Specific [place] Urine Protein Urine Glucose (UA) Urine Ketones Urine Blood Urine Nitrite Urine Bilirubin Urine Urobilinogen Ur Leukocyte Esterase Urine WBC (Auto) Urine RBC (Auto) Urine Casts (Auto) U Pathogenic Cast Auto U Epithel Cells (Auto) Urine Crystals (Auto) Urine Bacteria (Auto) RPR Titer Nonreactive 03/24/19 23:15 WBC RBC Hgb Hct MCV MCH MCHC RDW Plt Count MPV Sodium Potassium Chloride Carbon Dioxide Anion Gap BUN Creatinine Est GFR (CKD-EPI)AfAm Est GFR (CKD-EPI)NonAf Random Glucose Calcium Total Bilirubin AST ALT Alkaline Phosphatase Total Protein Albumin Urine Color Dk yellow Urine Appearance Turbid Urine pH 5.0 Ur Specific [place] 1.036 H Urine Protein Trace Urine Glucose (UA) Negative Urine Ketones Trace H Urine Blood 2+ H Urine Nitrite Positive H Urine Bilirubin Negative Urine Urobilinogen 1.0 Ur Leukocyte Esterase Trace Urine WBC (Auto) 6 Urine RBC (Auto) 13 Urine Casts (Auto) 20 U Pathogenic Cast Auto Positive U Epithel Cells (Auto) 23.8 Urine Crystals (Auto) Positive Urine Bacteria (Auto) 6595.4 RPR Titer Treated with Bactrim DS for UTI. Pt reminded to follow up with primary care at [facility] for further medical management. - Treatment Discharge Condition: Discharge condition good Hospital Course: Rehabilitated safely and responded well. CD aftercare referral accepted. - Medication-Assisted Treatment (MAT) Medication-Assisted Treatment (MAT): No - Discharge Instructions Diet, activity, other medical instructions: Diet:Regular Activity: oob ad davina Other medical instructions:Follow up with primary care at [facility] at [address] [place] [address] within 1-2 weeks after discharge. Follow up with CD aftercare recommendation with [facility] as scheduled. - Diagnosis (1) Alcohol dependence Status: Chronic Qualifiers: Substance use status: uncomplicated Qualified Code(s): F10.20 - Alcohol dependence, uncomplicated (2) Cocaine dependence Status: Chronic Qualifiers: Substance use status: uncomplicated Qualified Code(s): F14.20 - Cocaine dependence, uncomplicated (3) History of left knee surgery Status: Chronic (4) Hyperthyroidism Status: Chronic (5) Nicotine dependence Status: Chronic Qualifiers: Nicotine product type: cigarettes Substance use status: uncomplicated Qualified Code(s): F17.210 - Nicotine dependence, cigarettes, uncomplicated - Follow-up Referral Minutes to complete discharge: 20 - AMA Did Patient Leave Against Medical Advice: No
== END 2019-04-06 08:44 | disposition home or self-care (01) | DRG 772 ==
LOC: YASAS 08:53 → Y3E 10:56
PROVIDERS: ADMIT Neuromusculoskeletal Medicine & OMM; ATTEND Neuromusculoskeletal Medicine & OMM
PROC: HZ42ZZZ Group Counseling for Substance Abuse Treatment, Cognitive-Behavioral (ICD-10-PCS; principal; 2019-03-24)
DX: F14.20 Cocaine dependence, uncomplicated (principal); F10.20 Alcohol dependence, uncomplicated; N39.0 Urinary tract infection, site not specified; M19.90 Unspecified osteoarthritis, unspecified site; D64.9 Anemia, unspecified; Z87.891 Personal history of nicotine dependence
CPT/HCPCS: 36415; 80053; 81003; 85027; 86593

== ENCOUNTER 2020-01-17 08:36 | Inpatient (IN) | payer OTHER ==
--- NOTE | 2020-01-17 08:51 | BHS.RME ---
Substance Use & Tx History - Substance Use History Alcohol Substance amount: 8-10 beers 20 oz Frequency of use: Daily Substance route: Oral Date of Last Use: 01/16/20 (10pm) Cocaine-Crack Substance amount: $200 Frequency of use: Daily Substance route: Smoking Date of Last Use: 01/16/20 Nicotine Substance amount: 1 pack Frequency of use: Daily Substance route: Smoking Date of Last Use: 01/17/20 Physical/Psych/Mental Status - Behavior General Behavior: Increased activity (restlessness, agitation) Eye Contact: Normal - Cooperativeness Cooperativeness: Cooperative - Thinking Thought Processes: Tight, Logical, Goal Directed - Physical Health Problems Is patient presently having any pain?: No Does patient presently have any injuries (include location): No Does patient currently have a fever: No Is patient : No CIWA Nausea/Vomitin Muscle Tremors: 3 Anxiety: 3 Agitation: 3 Paroxysmal Sweats: 1-Minimal Palms Moist Orientation: 0-Oriented Tacttile Disturbances: 0-None Auditory Disturbances: 0-None Visual Disturbances: 0-None Headache: 0-None Present CIWA-Ar Total Score: 12
[2020-01-17 09:16] VITALS: BMI 19.7
--- NOTE | 2020-01-17 09:42 | HP ---
CIWA Score Nausea/Vomitin Muscle Tremors: 3 Anxiety: 3 Agitation: 3 Paroxysmal Sweats: 1-Minimal Palms Moist Orientation: 0-Oriented Tacttile Disturbances: 0-None Auditory Disturbances: 0-None Visual Disturbances: 0-None Headache: 0-None Present CIWA-Ar Total Score: 12 - Admission Criteria OASAS Guidelines: Admission for Medically Managed Detox: Requires at least one of the followin. CIWA greater than 12 2. Seizures within the past 24 hours 3. Delirium tremens within the past 24 hours 4. Hallucinations within the past 24 hours 5. Acute intervention needed for co occurring medical disorder 6. Acute intervention needed for co occurring psychiatric disorder 7. Severe withdrawal that cannot be handled at a lower level of care (continued vomiting, continued diarrhea, abnormal vital signs) requiring intravenous medication and/or fluids 8. Admitting History and Physical - Admission Chief Complaint: "I'm tired of using." History of Present Illness: 59 year old female with history of alcohol dependence,cocaine use disorder and nicotine dependence seeking detox. Substance Use & Tx History - Substance Use History Alcohol Substance amount: 8-10 beers 20 oz Frequency of use: Daily Substance route: Oral Date of Last Use: 01/16/20 (10pm) She endorses the need for an eye facility practice specialist daily. Cocaine-Crack Substance amount: $200 Frequency of use: Daily Substance route: Smoking Date of Last Use: 01/16/20 Nicotine Substance amount: 1 pack Frequency of use: Daily Substance route: Smoking Date of Last Use: 01/17/20 PMH: Vertigo, Chronic Bronchitis Psurg: C/X X3 Psych: Depression (SA- SI-) [facility] probation for drug possession. JANNET=0.000 CIWA=12 She meets criteria for detox as she has had multiple failures, has poor recovery environment and has medical and psychiatric co-morbidities. 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 Pulmonary: Yes: Bronchitis ...LMP: 09/02/10 Psych: Yes: Depression Rheumatology: Yes: Other (arthritis) - Past Surgical History Past Surgical History: Yes: , Joint Replacement - Smoking History Smoking history: Current every day smoker Have you smoked in the past 12 months: Yes Aproximately how many cigarettes per day: 20 If you are a former smoker, when did you quit?: 08/19/2011 - Alcohol/Substance Use Hx Alcohol Use: Yes (somewhat sporadic) Number of Drinks Daily: 0 (when she has the money) History of Substance Use: reports: Cocaine Date of Last Use: 03/23/19 - Social History Usual Living Arrangement: Yes: Alone Do you think of yourself as: Straight/Heterosexual ADL: Independent 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 [place] Allergies/Adverse Reactions: Allergies Allergy/AdvReac Type Severity Reaction Status Date / Time bee pollen Allergy Swelling Verified 01/17/20 09:06 No Known Drug Allergies Allergy Verified 01/17/20 09:06 Exam Limitations: No Limitations - Ebola screening Have you traveled outside of the country in the last 21 days: No Have you had contact with anyone from an Ebola affected area: No Have you been sick,other than usual withdrawal symptoms: No Do you have a fever: No - Review of Systems Constitutional: Chills EENT: reports: No Symptoms Reported Respiratory: reports: No Symptoms reported Cardiac: reports: No Symptoms Reported GI: reports: No Symptoms Reported : reports: No Symptoms Reported Musculoskeletal: reports: No Symptoms Reported Integumentary: reports: No Symptoms Reported Neuro: reports: No Symptoms reported Endocrine: reports: No Symptoms Reported Hematology: reports: No Symptoms Reported Psychiatric: reports: Judgement Intact, Mood/Affect Appropiate, Orientated x3, Agitated, Anxious Other Systems: Reviewed and Negative Patient History - Patient Medical History Hx Anemia: Yes (TAKING IRON PILLS) Hx Asthma: No Hx Chronic Obstructive Pulmonary Disease (COPD): No Hx Cancer: No Hx Cardiac Disorders: No Hx Congestive Heart Failure: No Hx Hypertension: No Hx Hypercholesterolemia: Yes (no med) Hx Pacemaker: No HX Cerebrovascular Accident: No Hx Seizures: No Hx Dementia: No Hx Diabetes: No Hx Gastrointestinal Disorders: No Hx Liver Disease: No Hx Genitourinary Disorders: No Hx Sexually Transmitted Disorders: No Hx Renal Disease (ESRD): No Hx Thyroid Disease: No Hx Human Immunodeficiency Virus (HIV): No (10/17 negative) Hx Hepatitis C: No Hx Depression: No Hx Suicide Attempt: No Hx Bipolar Disorder: No Hx Schizophrenia: No - Patient Surgical History Past Surgical History: Yes Hx Neurologic Surgery: No Hx Cataract Extraction: No Hx Cardiac Surgery: No Hx Lung Surgery: No Hx Breast Surgery: No Hx Breast Biopsy: No Hx Abdominal Surgery: No Hx Appendectomy: No Hx Cholecystectomy: No Hx Genitourinary Surgery: No Hx Section: Yes (1974 and 1979) Hx Orthopedic Surgery: Yes (Knee sx 1968. Metal brace on hips 2003 for fx) Anesthesia Reaction: No - PPD History Previous Implant?: No Documented Results: Positive w/o proof Implanted On Prior [facility] Admission?: No Date: 03/09/18 Results: positive PPD to be Administered?: No - Reproductive History Last Menstrual Period: 09/02/10 - Smoking Cessation Smoking history: Current every day smoker Have you smoked in the past 12 months: Yes Aproximately how many cigarettes per day: 20 If you are a former smoker, when did you quit?: 08/19/2011 Cigars Per Day: 0 Hx Chewing Tobacco Use: No Initiated information on smoking cessation: Yes 'Breaking Loose' booklet given: 01/17/20 - Substances abused Alcohol Substance route: Oral Frequency: Daily Amount used: 8-10 BEER Age of first use: 31 Date of last use: 01/16/20 Crack Substance route: Smoking Frequency: Daily Amount used: $200 Age of first use: 31 Date of last use: 01/16/20 Admission Physical Exam BHS - Vital Signs Vital Signs: Vital Signs - 24 hr 01/17/20 09:13 Temperature 97.3 F L Pulse Rate 68 Respiratory 19 Rate Blood Pressure 120/77 - Physical General Appearance: Yes: Irritable, Sweating, Anxious HEENTM: Yes: EOMI, Hearing grossly Normal, Normal ENT Inspection, Normocephalic, Normal Voice, LANI, Pharynx Normal Respiratory: Yes: Chest Non-Tender, Lungs Clear, Normal Breath Sounds, No Respiratory Distress, No Accessory Muscle Use Neck: Yes: No masses,lesions,Nodules, Supple, Trachea in good position Breast: Yes: Within Normal Limits Cardiology: Yes: Regular Rhythm, Regular Rate, S1, S2 Abdominal: Yes: Normal Bowel Sounds, Non Tender, Flat, Soft Genitourinary: Yes: Within Normal Limits Back: Yes: Normal Inspection Musculoskeletal: Yes: full range of Motion, Gait Steady, Pelvis Stable Extremities: Yes: Normal Capillary Refill, Normal Inspection, Normal Range of Motion, Non-Tender Neurological: Yes: timber selector II-XII NML intact, Fully Oriented, Alert, Motor Strength 5/5, Normal Mood/Affect, Normal Response Integumentary: Yes: Normal Color, Dry, Warm Lymphatic: Yes: Within Normal Limits - Diagnostic (1) Alcohol dependence with uncomplicated withdrawal Current Visit: Yes Status: Acute (2) Cocaine dependence Current Visit: Yes Status: Chronic Qualifiers: Substance use status: uncomplicated Qualified Code(s): F14.20 - Cocaine dependence, uncomplicated (3) History of left knee surgery Current Visit: Yes Status: Chronic (4) Hyperthyroidism Current Visit: Yes Status: Chronic (5) Nicotine dependence Current Visit: Yes Status: Chronic Qualifiers: Nicotine product type: cigarettes Substance use status: uncomplicated Qualified Code(s): F17.210 - Nicotine dependence, cigarettes, uncomplicated (6) Substance-induced sleep disorder Current Visit: Yes Status: Chronic (7) Drug-induced mood disorder Current Visit: Yes Status: Suspected Cleared for Admission S - Detox or Rehab [facility] Level of Care: Medically Managed Detox Regimen/Protocol: Librium Claeared for Rehab Admission: No Screened but not Admitted - Documentation of Visit Screened but not Admitted: No Breathalyzer - Breathalyzer Breathalyzer: 0 Vital Signs - Vital Signs Vital signs refused: No Temperature: 97.3 F Temperature source: Oral Pulse Rate: 68 Respiratory Rate: 19 Blood Pressure: 120/77 BP Location: Left Arm Blood Pressure position: Sitting - Height Height: 5 ft 2 in - Weight Weight: 108 lb Weight measurement method: Standing scale - BMI Body Mass Index (BMI): 19.7 - Bowel Function Bowel Movement: No Urine Drug Screen - Test Device Lot number: [id number] Expiration date: 01/03/22 - Control Is test valid?: Yes - Results Drug screen NEGATIVE: No Urine drug screen results: LILIANA-Cocaine Inpatient Rehab Admission - Rehab Decision to Admit Inpatient rehab admission?: No
[2020-01-17] MEDS ORDERED: MAG HYDROX/AL HYDROX/SIMETH 30 ML UNIT-DOSE CUP PO PRN (09:53)
[2020-01-17] MEDS ORDERED: IBUPROFEN 400 MG TABLET (FP) PO PRN (09:53)
[2020-01-17] MEDS ORDERED: ACETAMINOPHEN 325 MG TABLET (FP) PO PRN ×2 (09:53)
[2020-01-17] MEDS ORDERED: MENTHOL/PHENOL 1 EACH UD MM PRN (09:53)
[2020-01-17] MEDS ORDERED: BISMUTH SUBSALICYLATE 524 MG/30 ML UD PO PRN (09:53)
[2020-01-17] MEDS ORDERED: NICOTINE POLACRILEX 2 MG GUM BUC PRN (09:53)
[2020-01-17] MEDS ORDERED: MAGNESIUM CITRATE 300 ML BOTTLE PO PRN (09:53)
[2020-01-17] MEDS ORDERED: MAGNESIUM HYDROX 2400MG/30ML ORAL SUSPENSION 30 ML CUP PO PRN (09:53)
[2020-01-17] MEDS ORDERED: chlordiazePOXIDE HCL 25 MG CAPSULE PO PRN (09:53)
[2020-01-17] MEDS ORDERED: ONDANSETRON *ODT* 4 MG TABLET SL ONE (10:30)
[2020-01-17] MEDS ORDERED: chlordiazePOXIDE HCL 25 MG CAPSULE PO SCH (11:00)
[2020-01-17] MEDS ORDERED: diazePAM 5 MG TABLET PO PRN (11:49)
[2020-01-17] MEDS: hydrOXYzine PAMOATE 25 MG CAPSULE (FP) PO SCH ×4 (12:17→22:19)
[2020-01-17] MEDS: PRENATAL VITAMINS W/ FOLIC ACID TABLET (FP) PO SCH (12:17)
[2020-01-17] MEDS: NICOTINE 7 MG/24 HOURS TOPICAL PATCH TD SCH (12:18)
[2020-01-17] MEDS: diazePAM 5 MG TABLET PO SCH ×2 (13:55→22:18)
[2020-01-17 15:57] LABS: HEMATOCRIT 37.2 % (32.4-45.2); HEMOGLOBIN 12.5 GM/dL (10.7-15.3); MCH 33.4 pg (25.7-33.7); MCHC 33.6 g/dl (32.0-36.0); MEAN CELL VOLUME 99.4 fl (80-96); MEAN PLT VOLUME 7.4 fl (7.5-11.1); PLATELET COUNT 302 K/MM3 (134-434); RBC 3.74 M/mm3 (3.60-5.2); RDW 12.5 % (11.6-15.6); WHITE BLOOD COUNT 5.9 K/mm3 (4.0-10.0)
[2020-01-17 16:13] LABS: ALBUMIN 3.9 g/dl (3.4-5.0); BLOOD UREA NITROGEN 16.6 mg/dL (7-18); CALCIUM 9.3 mg/dL (8.5-10.1); POTASSIUM 4.3 mmol/L (3.5-5.1)
[2020-01-17 16:16] LABS: BILIRUBIN,TOTAL 0.8 mg/dL (0.2-1); CREATININE 0.9 mg/dL (0.55-1.3); TOT PROT 7.5 g/dl (6.4-8.2)
[2020-01-17] MEDS: THIAMINE HCL 100 MG TABLET (FP) PO SCH (22:19)
[2020-01-17] MEDS: METHOCARBAMOL 500 MG TABLET PO PRN (22:19)
[2020-01-17] MEDS: MELATONIN 5 MG TABLETS PO SCH (23:40)
[2020-01-18] MEDS: hydrOXYzine PAMOATE 25 MG CAPSULE (FP) PO SCH ×5 (05:45→22:32)
[2020-01-18] MEDS: diazePAM 5 MG TABLET PO SCH ×3 (05:45→22:32)
[2020-01-18] MEDS: METHOCARBAMOL 500 MG TABLET PO PRN ×2 (05:46→22:32)
--- NOTE | 2020-01-18 09:56 | PN ---
S CIWA - CIWA Score Nausea/Vomitin-Mild Nausea/No Vomiting Muscle Tremors: 4-Moderate,w/Arms Extend Anxiety: 1-Mildly Anxious Agitation: 0-Normal Activity Paroxysmal Sweats: No Perspiration Orientation: 0-Oriented Tacttile Disturbances: 0-None Auditory Disturbances: 0-None Visual Disturbances: 2-Mild Sensitivity Headache: 1-Very Mild CIWA-Ar Total Score: 9 BHS Progress Note (SOAP) Subjective: 59 years old female was admitted on 01/17/20 for alcohol withdrawal sx management treating with valium detox regiment ate 50% of breakfast resting in bed prefers to stay in bed resting today bmi 19.8 provide ensure 120 mg po tid with meals Objective: 01/18/20 09:58 Vital Signs - 24 hr 01/17/20 01/17/20 01/17/20 11:19 13:03 16:48 Temperature 98.6 F 98.4 F 98.2 F Pulse Rate 73 71 71 Respiratory 18 18 16 Rate Blood Pressure 124/72 113/70 111/75 O2 Sat by Pulse 98 Oximetry (%) 01/17/20 01/18/20 20:54 06:28 Temperature 98.4 F 97.4 F L Pulse Rate 78 53 L Respiratory 16 16 Rate Blood Pressure 128/78 119/68 O2 Sat by Pulse 99 99 Oximetry (%) Laboratory Tests 01/17/20 01/17/20 01/17/20 10:00 10:00 10:00 WBC 5.9 RBC 3.74 Hgb 12.5 Hct 37.2 MCV 99.4 H MCH 33.4 MCHC 33.6 RDW 12.5 Plt Count 302 MPV 7.4 L Sodium 140 Potassium 4.3 Chloride 106 Carbon Dioxide 26 Anion Gap 8 BUN 16.6 Creatinine 0.9 Est GFR (CKD-EPI)AfAm 79.98 Est GFR (CKD-EPI)NonAf 69.01 Random Glucose 82 Calcium 9.3 Total Bilirubin 0.8 AST 56 H ALT 38 Alkaline Phosphatase 67 Total Protein 7.5 Albumin 3.9 Syphilis Serology HIV Ag/Ab Combo Qual Negative 01/17/20 10:00 WBC RBC Hgb Hct MCV MCH MCHC RDW Plt Count MPV Sodium Potassium Chloride Carbon Dioxide Anion Gap BUN Creatinine Est GFR (CKD-EPI)AfAm Est GFR (CKD-EPI)NonAf Random Glucose Calcium Total Bilirubin AST ALT Alkaline Phosphatase Total Protein Albumin Syphilis Serology Reactive A* HIV Ag/Ab Combo Qual 01/18/20 09:59 rpr and covid pending Assessment: 01/18/20 10:00 alcohol withdrawal syphilis serology reactive Plan: valium regiment rpr pending
[2020-01-18] MEDS: PRENATAL VITAMINS W/ FOLIC ACID TABLET (FP) PO SCH (10:07)
[2020-01-18] MEDS: NICOTINE 7 MG/24 HOURS TOPICAL PATCH TD SCH (10:08)
[2020-01-18] MEDS: THIAMINE HCL 100 MG TABLET (FP) PO SCH (22:32)
[2020-01-18] MEDS: MELATONIN 5 MG TABLETS PO SCH (22:32)
[2020-01-19] MEDS ORDERED: chlordiazePOXIDE HCL 25 MG CAPSULE PO SCH (05:00)
[2020-01-19] MEDS: hydrOXYzine PAMOATE 25 MG CAPSULE (FP) PO SCH ×5 (06:07→22:36)
[2020-01-19] MEDS: diazePAM 5 MG TABLET PO SCH ×2 (06:07→17:54)
[2020-01-19] MEDS: PRENATAL VITAMINS W/ FOLIC ACID TABLET (FP) PO SCH (09:34)
[2020-01-19] MEDS: NICOTINE 7 MG/24 HOURS TOPICAL PATCH TD SCH (09:40)
--- NOTE | 2020-01-19 10:59 | PN ---
S CIWA - CIWA Score Nausea/Vomitin-Mild Nausea/No Vomiting Muscle Tremors: 1-None Visible, but [place] Anxiety: 2 Agitation: 0-Normal Activity Paroxysmal Sweats: 1-Minimal Palms Moist Orientation: 0-Oriented Tacttile Disturbances: 0-None Auditory Disturbances: 0-None Visual Disturbances: 0-None Headache: 1-Very Mild CIWA-Ar Total Score: 6 BHS Progress Note (SOAP) Subjective: 59 years old female was admitted on 01/17/20 for alcohol withdrawal sx management treating with valium detox regiment less sweating today mild anxiety with little tremor discussing aftercare with [facility] both are "fine" as per ms campbell Objective: 01/19/20 11:04 Vital Signs - 24 hr 01/18/20 01/18/20 01/18/20 13:05 16:52 20:35 Temperature 96.9 F L 97.1 F L 97.1 F L Pulse Rate 61 74 74 Respiratory 20 16 16 Rate Blood Pressure 114/70 135/85 132/88 O2 Sat by Pulse 100 100 98 Oximetry (%) 01/19/20 01/19/20 06:03 08:46 Temperature 98.6 F 99.0 F Pulse Rate 62 77 Respiratory 20 18 Rate Blood Pressure 122/74 100/63 O2 Sat by Pulse 98 Oximetry (%) Laboratory Tests 01/17/20 01/17/20 01/17/20 10:00 10:00 10:00 WBC 5.9 RBC 3.74 Hgb 12.5 Hct 37.2 MCV 99.4 H MCH 33.4 MCHC 33.6 RDW 12.5 Plt Count 302 MPV 7.4 L Sodium 140 Potassium 4.3 Chloride 106 Carbon Dioxide 26 Anion Gap 8 BUN 16.6 Creatinine 0.9 Est GFR (CKD-EPI)AfAm 79.98 Est GFR (CKD-EPI)NonAf 69.01 Random Glucose 82 Calcium 9.3 Total Bilirubin 0.8 AST 56 H ALT 38 Alkaline Phosphatase 67 Total Protein 7.5 Albumin 3.9 Syphilis Serology RPR Titer COVID-19 (TABITHA) HIV Ag/Ab Combo Qual Negative 01/17/20 01/17/20 01/17/20 10:00 10:00 10:00 WBC RBC Hgb Hct MCV MCH MCHC RDW Plt Count MPV Sodium Potassium Chloride Carbon Dioxide Anion Gap BUN Creatinine Est GFR (CKD-EPI)AfAm Est GFR (CKD-EPI)NonAf Random Glucose Calcium Total Bilirubin AST ALT Alkaline Phosphatase Total Protein Albumin Syphilis Serology Reactive A* RPR Titer Reactive 1:1 H D COVID-19 (TABITHA) Not detected HIV Ag/Ab Combo Qual 01/19/20 11:05 syphilis contacted treated Assessment: 01/19/20 11:06 alcohol withdrawal Plan: valium regiment
[2020-01-19] MEDS ORDERED: PENICILLIN G BENZATHINE 2,400,000 UNIT/4 ML PFS IM ONE (12:15)
[2020-01-19] MEDS ORDERED: MASKS NR ONE (18:08)
[2020-01-19] MEDS: THIAMINE HCL 100 MG TABLET (FP) PO SCH (22:36)
[2020-01-19] MEDS: METHOCARBAMOL 500 MG TABLET PO PRN (22:36)
[2020-01-19] MEDS: MELATONIN 5 MG TABLETS PO SCH (22:36)
[2020-01-20] MEDS ORDERED: chlordiazePOXIDE HCL 10 MG CAPSULE PO PRN
[2020-01-20] MEDS ORDERED: chlordiazePOXIDE HCL 10 MG CAPSULE PO SCH (05:00)
[2020-01-20] MEDS ORDERED: diazePAM 5 MG TABLET PO ONE (06:00)
[2020-01-20] MEDS: hydrOXYzine PAMOATE 25 MG CAPSULE (FP) PO SCH ×2 (06:24→09:42)
[2020-01-20 09:12] VITALS: BP 125/87; PULSE 74; TEMP 98.4
[2020-01-20] MEDS: NICOTINE 7 MG/24 HOURS TOPICAL PATCH TD SCH (09:41)
[2020-01-20] MEDS: PRENATAL VITAMINS W/ FOLIC ACID TABLET (FP) PO SCH (09:41)
--- NOTE | 2020-01-20 09:47 | DS ---
[facility] Detox Discharge Summary Admission Date: 01/17/20 Discharge Date: 01/20/20 - History Present History: Alcohol Dependence Additional Comments: 59 years old female was admitted on 01/17/20 for alcohol withdrawal sx management treated with valium detox regiment ms campbell has completed valium regiment and is tolerated well General Appearance: Yes: less Irritable, no Sweating, mild Anxious HEENTM: Yes: EOMI, Hearing grossly Normal, Normal ENT Inspection, Normocephalic, Normal Voice, LANI, Pharynx Normal Respiratory: Yes: Chest Non-Tender, Lungs Clear, Normal Breath Sounds, No Respiratory Distress, No Accessory Muscle Use Neck: Yes: No masses,lesions,Nodules, Supple, Trachea in good position Breast: Yes: Within Normal Limits Cardiology: Yes: Regular Rhythm, Regular Rate, S1, S2 Abdominal: Yes: Normal Bowel Sounds, Non Tender, Flat, Soft Genitourinary: Yes: Within Normal Limits Back: Yes: Normal Inspection Musculoskeletal: Yes: full range of Motion, Gait Steady, Pelvis Stable Extremities: Yes: Normal Capillary Refill, Normal Inspection, Normal Range of Motion, Non-Tender Neurological: Yes: white lead grinder II-XII NML intact, Fully Oriented, Alert, Motor Strength 5/5, Normal Mood/Affect, Normal Response Integumentary: Yes: Normal Color, Dry, Warm Lymphatic: Yes: Within Normal Limits Pertinent Past History: time for discharge 33 minutes - Physical Exam Results Vital Signs: Vital Signs Temperature 98.4 F 01/20/20 08:32 Pulse Rate 74 01/20/20 08:32 Respiratory Rate 18 01/20/20 08:32 Blood Pressure 125/87 01/20/20 08:32 O2 Sat by Pulse Oximetry (%) 97 01/20/20 06:49 Pertinent Admission Physical Exam Findings: alcohol withdrawal Laboratory Tests 01/17/20 01/17/20 01/17/20 10:00 10:00 10:00 WBC 5.9 RBC 3.74 Hgb 12.5 Hct 37.2 MCV 99.4 H MCH 33.4 MCHC 33.6 RDW 12.5 Plt Count 302 MPV 7.4 L Sodium 140 Potassium 4.3 Chloride 106 Carbon Dioxide 26 Anion Gap 8 BUN 16.6 Creatinine 0.9 Est GFR (CKD-EPI)AfAm 79.98 Est GFR (CKD-EPI)NonAf 69.01 Random Glucose 82 Calcium 9.3 Total Bilirubin 0.8 AST 56 H ALT 38 Alkaline Phosphatase 67 Total Protein 7.5 Albumin 3.9 Syphilis Serology RPR Titer COVID-19 (TABITHA) HIV Ag/Ab Combo Qual Negative 01/17/20 01/17/20 01/17/20 10:00 10:00 10:00 WBC RBC Hgb Hct MCV MCH MCHC RDW Plt Count MPV Sodium Potassium Chloride Carbon Dioxide Anion Gap BUN Creatinine Est GFR (CKD-EPI)AfAm Est GFR (CKD-EPI)NonAf Random Glucose Calcium Total Bilirubin AST ALT Alkaline Phosphatase Total Protein Albumin Syphilis Serology Reactive A* RPR Titer Reactive 1:1 H D COVID-19 (TABITHA) Not detected HIV Ag/Ab Combo Qual Vital Signs - 24 hr 01/19/20 01/19/20 01/19/20 12:21 16:50 22:01 Temperature 99.0 F 97.5 F L 97.3 F L Pulse Rate 76 81 73 Respiratory 18 18 18 Rate Blood Pressure 136/82 118/75 119/73 O2 Sat by Pulse 100 99 Oximetry (%) 01/20/20 01/20/20 06:49 08:32 Temperature 97.2 F L 98.4 F Pulse Rate 59 L 74 Respiratory 18 18 Rate Blood Pressure 107/57 L 125/87 O2 Sat by Pulse 97 Oximetry (%) syphilis contacted treated - Treatment Hospital Course: Detox Protocol Followed, Detoxed Safely, Responded well, Discharged Condition Good, Rehab Referral Accepted Patient has Accepted a Rehab Referral to: [facility] - Medication Discharge Medications: Ambulatory Orders NK [No Known Home Medication] 01/17/20 - Diagnosis (1) Alcohol dependence with uncomplicated withdrawal Status: Acute (2) Syphilis contact, treated Status: Chronic (3) Nicotine dependence Status: Acute Qualifiers: Nicotine product type: cigarettes Substance use status: in withdrawal Qualified Code(s): F17.213 - Nicotine dependence, cigarettes, with withdrawal - AMA Did Patient Leave Against Medical Advice: No CIWA Score - CIWA Score Nausea/Vomitin-No Nausea/No Vomiting Muscle Tremors: 1-None Visible, but [place] Anxiety: 2 Agitation: 0-Normal Activity Paroxysmal Sweats: No Perspiration Orientation: 0-Oriented Tacttile Disturbances: 0-None Auditory Disturbances: 0-None Visual Disturbances: 0-None Headache: 0-None Present CIWA-Ar Total Score: 3
[2020-01-21] MEDS ORDERED: chlordiazePOXIDE HCL 10 MG CAPSULE PO SCH (05:00)
[2020-01-22] MEDS ORDERED: chlordiazePOXIDE HCL 10 MG CAPSULE PO ONE (05:00)
== END 2020-01-20 09:35 | disposition home or self-care (01) | DRG 774 ==
LOC: YASAS 08:36 → Y3N 09:46
PROVIDERS: ADMIT Allergy & Immunology; ATTEND Allergy & Immunology
PROC: HZ2ZZZZ Detoxification Services for Substance Abuse Treatment (ICD-10-PCS; principal; 2020-01-17)
DX: F10.230 Alcohol dependence with withdrawal, uncomplicated (principal); F14.20 Cocaine dependence, uncomplicated; F17.210 Nicotine dependence, cigarettes, uncomplicated; F19.282 Other psychoactive substance dependence with psychoactive substance-induced sleep disorder; F19.24 Other psychoactive substance dependence with psychoactive substance-induced mood disorder; F32.9 Major depressive disorder, single episode, unspecified; D64.9 Anemia, unspecified; E78.00 Pure hypercholesterolemia, unspecified; E05.90 Thyrotoxicosis, unspecified without thyrotoxic crisis or storm; Z20.2 Contact with and (suspected) exposure to infections with a predominantly sexual mode of transmission
CPT/HCPCS: 36415; 80053; 85027; 86593; 86780; 87389; Q0162; U0003

== ENCOUNTER 2020-03-21 08:46 | Inpatient (IN) | payer OTHER ==
--- OUTSIDE RECORDS SUMMARY | 2020-03-21 08:50 | XMS ---
:1960 Author Organization [facility] Care Team Providers Name Role Phone [facility], [facility]9 Unavailable Unavailable ED STAFF PHYSICIAN Unavailable Unavailable ED STAFF PHYSICIANCAROLYN Unavailable Unavailable [id number], [id number] Unavailable Unavailable ED STAFF PHYSICIAN Unavailable Unavailable ED STAFF PHYSICIAN, STAFF Unavailable Unavailable ROSANGELA LUNA MD Unavailable Unavailable Coon Unavailable Unavailable Coon Unavailable Unavailable Coon Unavailable Unavailable Coon Unavailable Unavailable Coon Unavailable Unavailable Coon Unavailable Unavailable MD ZANDER Unavailable Unavailable AnnettaUNASSIGNED Unavailable Unavailable ED STAFF PHYSICIAN Unavailable Unavailable ED STAFF PHYSICIAN Unavailable Unavailable Re-disclosure Warning The records that you are about to access may contain information from federally- assisted alcohol or drug abuse programs. If such information is present, then the following federally mandated warning applies: This information has been disclosed to you from records protected by federal confidentiality rules (42 CFR part 2). The federal rules prohibit you from making any further disclosure of this information unless further disclosure is expressly permitted by the written consent of the person to whom it pertains or as otherwise permitted by 42 CFR part 2. A general authorization for the release of medical or other information is NOT sufficient for this purpose. The Federal rules restrict any use of the information to criminally investigate or prosecute any alcohol or drug abuse patient.The records that you are about to access may contain highly sensitive health information, the redisclosure of which is protected by Article 27-F of the [facility] Public Health law. If you continue you may haveaccess to information: Regarding HIV / AIDS; Provided by facilities licensed or operated by the [facility] Office of Mental Health; or Provided by the [facility] Office for People With Developmental Disabilities. If such information is present, then the following [facility] mandated warning applies: This information has been disclosed to you from confidential records which are protected by state law. State law prohibits you from making any further disclosure of this information without the specific written consent of the person to whom it pertains, or as otherwise permitted by law. Any unauthorized further disclosure in violation of state law may result in a fine or alf sentence or both. A general authorization for the release of medical or other information is NOT sufficient authorization for further disclosure. Family History Family Member Family Member Family Member Date of Description Data Source(s) Name Gender Status Status Unknown Male Diagnosis 03/13/2007 [facility] [place] Encounters Encounter Providers Location Date Indications Data Source(s ) Emergency Attender: ED STAFF H 03/01/2020 [facility] PHYSICIANAttender: 04:03:[address] [facility] STAFF ED STAFF EDT - PHYSICIANAdmitter: ED 03/01/2020 STAFF 04:33:00 AM PHYSICIANReferrer: EDT ZUNASSIGNED Patient discharged. Emergency Attender: OTTERBEIN ED STAFF -ER 01/12/2020 10:03:00 [facility] PHYSICIANAttender: STAFF ED AM EDT - 01/12/2020 [facility] STAFF PHYSICIANAdmitter: 01:22:00 PM EDT OTTERBEIN ED STAFF PHYSICIAN Patient discharged. Emergency Attender: STAFF ED STAFF 12/16/2019 12:43:00 AM [facility] PHYSICIAN EDT - 12/16/2019 03:28:00 [place] AM EDT Patient discharged. Emergency Attender: ED STAFF H 10/19/2019 03:38:00 AM [facility] PHYSICIANAttender: STAFF ED EDT - 10/19/2019 [facility] STAFF PHYSICIANAdmitter: ED 06:46:00 AM EDT STAFF PHYSICIAN Patient discharged. Emergency Attender: ED STAFF H 09/20/2019 01:02:00 AM [facility] PHYSICIANAttender: STAFF ED EDT - 09/20/2019 [facility] STAFF PHYSICIANAdmitter: ED 04:33:00 AM EDT STAFF PHYSICIAN Patient discharged. Emergency Attender: STAFF ED STAFF H 09/18/2019 02:02:00 AM [facility] PHYSICIAN EDT - 09/18/2019 02:42:00 Center AM EDT Patient discharged. Emergency Attender: STAFF ED STAFF H 09/17/2019 02:07:00 AM [facility] Medical PHYSICIAN EDT - 09/17/2019 06:45:00 Center AM EDT Patient discharged. Emergency Attender: ED STAFF H 09/14/2019 09:27:00 PM [facility] PHYSICIANAttender: STAFF ED EDT - 09/15/2019 [facility] STAFF PHYSICIANAdmitter: ED 01:13:00 AM EDT STAFF PHYSICIAN Patient discharged. Emergency Attender: MARGARET ED STAFF H 08/04/2019 09:31:00 AM [facility] PHYSICIANAttender: STAFF ED EST - 08/04/2019 [facility] STAFF PHYSICIANAdmitter: MARGARET 01:21:00 PM EST ED STAFF PHYSICIAN Patient discharged. Outpatient Attender: HVC9 [facility] 07/20/2019 12:13:00 PM I ([facility]) Patient admitted. Inpatient Attender: ROSANGELA TRACEY-1D 07/13/2019 02:47:[facility] EST - 07/27/2019 [facility] 10:35:00 PM EST Patient discharged. Attender: 07/13/2019 [facility] [id number] 02:47:00 PM [facility]_6766 Outpatient [facility] 07/13/2019 [facility] 07/13/2019 10:36:00 PM EST Patient discharged. Attender: 07/13/2019 [facility] [id number] 09:14:00 AM [facility]_6766 Attender: Shelby Ibrahim [facility] 01/27/2019 [facility] ([facility] 10:30:00 AM EDT [facility] 01/27/2019 [facility] 10:30:00 AM EDT Center) Insurance Providers Payer name Policy type Policy ID Covered Covered alliance party's Policy P gabriella / Coverage alliance party ID relationship to Lindsey Inf ormation type lindsey [facility] [id number] [facility] [id number] 01 [id number] SELF PAY 0 Self 0 MEDICAID INP [id number] Self [id number] Y [facility] [id number] Self [id number] CARE Rodo Family [id number] S [id number] Planning MKD & EP 3 & 4 Only Dental [id number] S [id number] Dentaquest MKD [facility] Vision [id number] S [id number] MKD Rodo [id number] S [id number] Healthier Life MKD -- HARP Rodo Care [id number] S [id number] [place] Medicaid Dental [id number] S [id number] Healthplex MKD [place] [id number] S [id number] Vision MKD [place] [facility] [id number] S [id number] Options MKD [facility] [id number] S [id number] FFS Medicaid Medicaid [id number] S [id number] Regular Clinic Visit [facility] Medicaid [id number] S [id number] Managed Care CARLOS A [id number] Problems, Conditions, and Diagnoses Code Display Name Description Problem Type Effective Data Dates Source(s) F17.210 Nicotine NICOTINE Diagnosis 01/12/2020 [facility] dependence, DEPENDENCE, 10:03:00 AM Medical cigarettes, CIGARETTES, EDT Center uncomplicated UNCOMPLICATED R42 Dizziness and DIZZINESS AND Diagnosis 01/12/2020 [facility] zelaya giddiness GIDDINESS 10:03:00 AM Medical EDT Center R40.2410 Eduardo coma scale EDUARDO COMA SCALE Diagnosis 0 [facility] score 13-15, SCORE 13-15, 12:43:00 AM Medical unspecified time UNSPECIFIED TIME EDT Ce nter J33.9 Nasal polyp, NASAL POLYP, Diagnosis 12/16/2019 [facility] phs unspecified UNSPECIFIED 12:43:00 AM Medical EDT Center J34.89 Other specified OTHER SPECIFIED Diagnosis 12/16/2019 [facility] disorders of nose DISORDERS OF NOSE 12:43:00 AM Medical and nasal sinuses AND NASAL SINUSES EDT Center R07.89 Other chest pain OTHER CHEST PAIN Diagnosis 10/19/2019 [facility] 03:38:00 AM Medical EDT Center R52 Pain, unspecified PAIN, UNSPECIFIED Diagnosis 10/19/2019 [facility] 03:38:00 AM Medical EDT Center Z72.0 Tobacco use TOBACCO USE Diagnosis 09/20/2019 [place] s 01:02:00 AM Medical EDT Center R51 Headache HEADACHE Diagnosis 09/20/2019 [facility] 01:02:00 AM Medical EDT Center Z00.00 Encounter for ENCNTR FOR GENERAL Diagnosis 09/18/2019 [facility] general adult ADULT MEDICAL EXAM 02:02:[address]ical medical W/O ABNORMAL EDT Center examination FINDINGS without abnormal findings Z04.89 ENCOUNTER FOR ENCOUNTER FOR Diagnosis 09/17/2019 [facility] EXAMINATION AND EXAMINATION AND 02:07:00 AM Med ical OBSERVATION FOR OBSERVATION FOR EDT Cent er OTH REASONS OTH REASONS J40 Bronchitis, not BRONCHITIS, NOT Diagnosis 08/04/2019 [facility] specified as acute SPECIFIED ACUTE 09:31:00 AM Medical or chronic OR CHRONIC EST Center R07.9 Chest pain, CHEST PAIN, Diagnosis 08/04/2019 [place] unspecified UNSPECIFIED 09:31:00 AM Medical EST Center Results ID Date Data Source [id number] 01/17/2020 10:00:00 AM EDT [facility] Name Value Range Interpretation Description Data Sup porting Code Source(s) Document(s ) SARS [facility] coronavirus 2 RNA This lab was ordered by [facility] Liz Bradley and reported by [facility]. ID Date Data Source HematologyRou.[id number] 10/19/2019 04:55:00 AM EDT [facility] 0400 Name Value Range Interpretation Description Data Sup porting Code Source(s) Document(s ) Leukocytes 4.4-11.0 <content [facility] [#/volume] in styleCode="Bold [facility] Blood by ">White Blood Medical Automated count Cell Count Center </content>4.61 KCUMM<content styleCode="Ital ics"> (4.4-11.0 KCUMM)</content > Erythrocytes 4.0-5.1 <content [facility] [#/volume] in styleCode="B[facility] Blood by ">Red Blood Medical Automated count Cell Count Center </content>4.01 MCUMM<content styleCode="Ital ics"> (4.0-5.1 MCUMM)</content > Hematocrit 36.0-46. <content [facility] [Volume 0 styleCode="Bold [facility] Fraction] of ">Hematocrit Medical Blood by </content>38.2 Center Automated count %<content styleCode="Ital ics"> (36.0-46.0 %)</content> Hemoglobin 12.3-16. <content [facility] [Mass/volume] in 0 styleCode="Bold [facility] Blood ">Hemoglobin Medical </content>13.3 Center G/DL<content styleCode="Ital ics"> (12.3-16.0 G/DL)</content> Erythrocyte mean 80.0-100 <content [facility] corpuscular .0 styleCode="Bold [facility] volume [Entitic ">Mean Medical volume] by Corpuscular Center Automated count Volume </content>95.3 FL<content styleCode="Ital ics"> (80.0-100.0 FL)</content> Erythrocyte mean 26.0-34. <content [facility] corpuscular 0 styleCode="Bold [facility] hemoglobin ">Mean Medical [Entitic mass] Corposcular Center by Automated Hemoglobin count </content>33.2 PG<content styleCode="Ital ics"> (26.0-34.0 PG)</content> Erythrocyte mean 32.0-37. <content [facility] corpuscular 0 styleCode="Bold [facility] hemoglobin ">Mean Corpus. Medical concentration Hgb Center [Mass/volume] by Concentration Automated count (MCHC) </content>34.8 G/DL<content styleCode="Ital ics"> (32.0-37.0 G/DL)</content> Erythrocyte 11.5-14. <content [facility] distribution 5 styleCode="Bold [facility] width [Ratio] by ">Red Cell Medical Automated count Distribution Center Width </content>13.1 %<content styleCode="Ital ics"> (11.5-14.5 %)</content> Platelets 130-400 <content Saint [#/volume] in styleCode="[facility] Blood by ">Platelet Medical Automated count Count Center </content>298 KCUMM<content styleCode="Ital ics"> (130-400 KCUMM)</content > UNK 0 <content Saint styleCode="Bold Johanny ">Nucleated Red Medical Blood Cell Center </content>0.0 /100<content styleCode="Ital ics"> (0 /100)</content> Platelet mean 8.0-11.0 <content [facility] volume [Entitic styleCode="Bold Johanny volume] in Blood ">Mean Platelet Medical by Automated Volume Center count </content>9.0 FL<content styleCode="Ital ics"> (8.0-11.0 FL)</content> UNK 0.0 <content Saint styleCode="Bold Johanny ">Nucleated Red Medical Blood Cell Center Count </content>0.00 KCUMM<content styleCode="Ital ics"> (0.0 KCUMM)</content > ID Date Data Source GFR(Creatinine).[id number] 10/19/2019 04:55:00 AM EDT [facility] 0-0400 Name Value Range Interpretation Code Description Data Maame rce(s) Supporting Document(s ) UNK > 60 <content [facility] styleCode="Bold"> Medical Cent er EGFR </content>94 GFR<content styleCode="Italic s"> (> 60 GFR)</content> ID Date Data Source CardiacMarkers.[id number] 10/19/2019 04:55:00 AM EDT [facility] -0400 Name Value Range Interpretation Description Data Sup porting Code Source(s) Document(s ) Troponin < 0.034 <content Saint I.cardiac styleCode="Bold [facility] [Mass/volume ">Troponin I Medical ] in Serum </content>< Center or Plasma 0.012 NG/ML<content styleCode="Ital ics"> (< 0.034 NG/ML)</content > ID Date Data Source BMP.[id number] 10/19/2019 04:55:00 AM EDT [facility] Name Value Range Interpretation Description Data Sup porting Code Source(s) Document(s ) Sodium 137-145 <content Saint [Moles/volume] styleCode="Vernell Johanny in Serum or d">Sodium Medical Plasma </content>139 Center MEQ/L<content styleCode="Gabby lics"> (137-145 MEQ/L)</conten t> Potassium 3.5-5.3 <content [facility] [Moles/volume] styleCode="Vernell Johanny in Serum or d">Potassium Medical Plasma </content>4.3 Center MEQ/L<content styleCode="Gabby lics"> (3.5-5.3 MEQ/L)</conten t> Carbon 22-30 <content [facility] dioxide, total styleCode="[facility]ell [facility] [Moles/volume] d">Carbon Medical in Serum or Dioxide Center Plasma </content>25 MEQ/L<content styleCode="Gabby lics"> (22-30 MEQ/L)</conten t> Chloride 98-107 <content Saint [Moles/volume] styleCode="[facility]ell [facility] in Serum or d">Chloride Medical Plasma </content>107 Center MEQ/L<content styleCode="Gabby lics"> (98-107 MEQ/L)</conten t> Glucose 74-106 <content Saint [Mass/volume] styleCode="Vernell [facility] in Serum or d">Glucose Medical Plasma </content>99 Center MG/DL<content styleCode="Gabby lics"> (74-106 MG/DL)</conten t> UNK 7-17 <content Saint styleCode="Vernell Johanny d">BUN Medical </content>14 Center MG/DL<content styleCode="Gabby lics"> (7-17 MG/DL)</conten t> Creatinine 0.5-1.3 <content Saint [Mass/volume] styleCode="Vernell Johanny in Serum or d">Creatinine Medical Plasma </content>0.8 Center MG/DL<content styleCode="Gabby lics"> (0.5-1.3 MG/DL)</conten t> UNK > 60 <content Saint styleCode="Vernell Johanny d">EGFR Medical </content>94 Center GFR<content styleCode="Gabby lics"> (> 60 GFR)</content> Calcium 8.4-10.2 <content Saint [Mass/volume] styleCode="[facility] [place] in Serum or d">Calcium Medical Plasma </content>9.5 Center MG/DL<content styleCode="Gabby lics"> (8.4-10.2 MG/DL)</conten t> ID Date Data Source Microbiology.[id number] 08/04/2019 11:17:00 AM EST [facility] 400 Name Value Range Interpretation Code Description Data Maame rce(s) Supporting Document(s ) UNK <item><content [facility] styleCode="Bold"> Medical [facility] er Culture Status </content>
<t able><tbody><tr>< td>Specimen Number:</td><td>[id number]</td></tr ><tr><td>Sample Collection Date/Time: </td><td>08/04/2019 12:17 PM</td></tr><tr>< td>Specimen Source:</td><td>B LOOD</td></tr><tr ><td>Blood Culture:</td><td> Collection Plate Date: 08/04/2019 12:24 </td></tr><tr><td >Culture Report:</td><td>C ulture in progress </td></tr><tr><td >Culture Status:</td><td>P reliminary </td></tr></tbody ></table></item> UNK <item><content [facility] styleCode="Bold"> Medical Cent er Culture Report </content>
<t able><tbody><tr>< td>Specimen Number:</td><td>[id number]</td></tr ><tr><td>Sample Collection Date/Time: </td><td>08/04/2019 12:17 PM</td></tr><tr>< td>Specimen Source:</td><td>B LOOD</td></tr><tr ><td>Blood Culture:</td><td> Collection Plate Date: 08/04/2019 12:24 </td></tr><tr><td >Culture Status:</td><td>P reliminary </td></tr><tr><td >Culture Report:</td><td>C ulture in progress </td></tr></tbody ></table></item> ID Date Data Source Liver 08/04/2019 09:38:00 AM EST [facility] Profile.[id number] Name Value Range Interpretation Description Data Sup porting Code Source(s) Document(s ) Alanine 7-30 <content [facility] aminotransferase styleCode="Bold"> Nir hs [Enzymatic Alanine Medical activity/volume] Aminotransferase Center in Serum or Plasma (ALT) </content>24 IU/L<content styleCode="Italic s"> (7-30 IU/L)</content> Aspartate 14-36 Above high <content [facility] aminotransferase normal styleCode="Bold"> Nir hs [Enzymatic Aspartate Medical activity/volume] Aminotransferase Center in Serum or Plasma (AST) </content>48 IU/L H<content styleCode="Italic s"> (14-36 IU/L)</content> Bilirubin.total 0.2-1.3 <content [facility] [Mass/volume] in styleCode="Bold"> Nir hs Serum or Plasma Bilirubin Total Medical </content>0.4 Center MG/DL<content styleCode="Italic s"> (0.2-1.3 MG/DL)</content> Alkaline 38-126 <content [facility] phosphatase styleCode="Bold"> Johanny [Enzymatic Alkaline Medical activity/volume] Phosphatase (ALP) Cente r in Serum or Plasma </content>88 IU/L<content styleCode="Italic s"> (38-126 IU/L)</content> Albumin 3.5-5.0 <content [facility] [Mass/volume] in styleCode="Bold"> Nir hs Serum or Plasma Albumin Medical </content>4.7 Center G/DL<content styleCode="Italic s"> (3.5-5.0 G/DL)</content> ID Date Data Source HematologyRou.[id number] 08/04/2019 09:38:00 AM L[facility] 0400 Name Value Range Interpretation Description Data Sup porting Code Source(s) Document(s ) Erythrocytes 4.0-5.1 Below low normal <content [facility] [#/volume] in styleCode="Bold [facility] Blood by ">Red Blood Medical Automated count Cell Count Center </content>3.78 MCUMM L<content styleCode="Ital ics"> (4.0-5.1 MCUMM)</content > Leukocytes 4.4-11.0 <content [facility] [#/volume] in styleCode="Bold [facility] Blood by ">White Blood Medical Automated count Cell Count Center </content>6.77 KCUMM<content styleCode="Ital ics"> (4.4-11.0 KCUMM)</content > Erythrocyte mean 32.0-37. <content [facility] corpuscular 0 styleCode="Bold [facility] hemoglobin ">Mean Corpus. Medical concentration Hgb Center [Mass/volume] by Concentration Automated count (MCHC) </content>33.9 G/DL<content styleCode="Ital ics"> (32.0-37.0 G/DL)</content> Erythrocyte mean 26.0-34. <content [facility] corpuscular 0 styleCode="Bold [facility] hemoglobin ">Mean Medical [Entitic mass] Corposcular Center by Automated Hemoglobin count </content>31.7 PG<content styleCode="Ital ics"> (26.0-34.0 PG)</content> Hemoglobin 12.3-16. Below low normal <content Saint [Mass/volume] in 0 styleCode="Bold [facility] Blood ">Hemoglobin Medical </content>12.0 Center G/DL L<content styleCode="Ital ics"> (12.3-16.0 G/DL)</content> Erythrocyte mean 80.0-100 <content [facility] corpuscular .0 styleCode="Bold [facility] volume [Entitic ">Mean Medical volume] by Corpuscular Center Automated count Volume </content>93.7 FL<content styleCode="Ital ics"> (80.0-100.0 FL)</content> Hematocrit 36.0-46. Below low normal <content Saint [Volume 0 styleCode="Bold [facility] Fraction] of ">Hematocrit Medical Blood by </content>35.4 Center Automated count % L<content styleCode="Ital ics"> (36.0-46.0 %)</content> Neutrophils 36-66 Above high <content [facility] [#/volume] in normal styleCode="Bold [facility] Blood by ">Neutrophil Medical Automated count </content>70.9 Center % H<content styleCode="Ital ics"> (36-66 %)</content> Platelet mean 8.0-11.0 <content [facility] volume [Entitic styleCode="Bold Johanny volume] in Blood ">Mean Platelet Medical by Automated Volume Center count </content>8.8 FL<content styleCode="Ital ics"> (8.0-11.0 FL)</content> Platelets 130-400 <content [facility] [#/volume] in styleCode="Bold [facility] Blood by ">Platelet Medical Automated count Count Center </content>339 KCUMM<content styleCode="Ital ics"> (130-400 KCUMM)</content > Erythrocyte 11.5-14. <content [facility] distribution 5 styleCode="Bold Johanny width [Ratio] by ">Red Cell Medical Automated count Distribution Center Width </content>12.9 %<content styleCode="Ital ics"> (11.5-14.5 %)</content> UNK 1.6-7.3 <content Saint styleCode="Bold Johanny ">Neutrophil Medical Count Center </content>4.80 KCUMM<content styleCode="Ital ics"> (1.6-7.3 KCUMM)</content > UNK 0.0-0.6 <content Saint styleCode="Bold Johanny ">Eosinophil Medical Count Center </content>0.05 KCUMM<content styleCode="Ital ics"> (0.0-0.6 KCUMM)</content > UNK 1.0-4.8 <content [facility] styleCode="Bold Johanny ">Lymphocyte Medical Count Center </content>1.42 KCUMM<content styleCode="Ital ics"> (1.0-4.8 KCUMM)</content > Eosinophils 0-5.0 <content Saint [#/volume] in styleCode="Bold [facility] Blood by ">Eosinophil Medical Automated count </content>0.7 Center %<content styleCode="Ital ics"> (0-5.0 %)</content> UNK 0.2-0.9 <content Saint styleCode="Bold Johanny ">Monocyte Medical Count Center </content>0.46 KCUMM<content styleCode="Ital ics"> (0.2-0.9 KCUMM)</content > Monocytes 3.0-10.0 <content [facility] [#/volume] in styleCode="Bold [facility] Blood by ">Monocyte Medical Automated count </content>6.8 Center %<content styleCode="Ital ics"> (3.0-10.0 %)</content> Lymphocytes 24.0-44. Below low normal <content [facility] [#/volume] in 0 styleCode="Bold [facility] Blood by ">Lymphocyte Medical Automated count </content>21.0 Center % L<content styleCode="Ital ics"> (24.0-44.0 %)</content> UNK 0-0.1 <content Saint styleCode="Bold Johanny ">Immature Medical Granulocyte Center Count </content>0.02 KCUMM<content styleCode="Ital ics"> (0-0.1 KCUMM)</content > Basophils 0.0-1.0 <content Saint [#/volume] in styleCode="Bold [facility] Blood by ">Basophil Medical Automated count </content>0.3 Center %<content styleCode="Ital ics"> (0.0-1.0 %)</content> UNK 0.0-0.3 <content Saint styleCode="Bold Johanny ">Basophil Medical Count Center </content>0.02 KCUMM<content styleCode="Ital ics"> (0.0-0.3 KCUMM)</content > UNK 0 <content Saint styleCode="Bold Johanny ">Nucleated Red Medical Blood Cell Center </content>0.0 /100<content styleCode="Ital ics"> (0 /100)</content> UNK 0.0 <content styleCode="Bold Johanny ">Nucleated Red Medical Blood Cell Center Count </content>0.00 KCUMM<content styleCode="Ital ics"> (0.0 KCUMM)</content > UNK < 1 <content Saint styleCode="Bold Johanny ">Immature Medical Granulocyte Center Ratio </content>0.3 %<content styleCode="Ital ics"> (< 1 %)</content> ID Date Data Source GFR(Creatinine).[id number] 08/04/2019 09:38:00 AM [facility] 0-0400 Name Value Range Interpretation Code Description Data Maame rce(s) Supporting Document(s ) UNK > 60 <content [facility] styleCode="Bold"> Medical Cent er EGFR </content>82 GFR<content styleCode="Italic s"> (> 60 GFR)</content> ID Date Data Source CHMROUTINECCDA.[id number] 08/04/2019 09:38:00 AM [facility] -0400 Name Value Range Interpretation Description Data Sup porting Code Source(s) Document(s ) Protein 6.3-8.2 <content [facility] [Mass/volum styleCode="Bold Medical e] in Serum ">Total Protein Center or Plasma </content>8.0 G/DL<content styleCode="Ital ics"> (6.3-8.2 G/DL)</content> UNK >= 1.0 <content [facility] styleCode="Bold Medical ">AG Ratio Center </content>1.4 <content styleCode="Ital ics"> (>= 1.0 )</content> UNK 2.3-3.5 <content [facility] styleCode="Bold Medical ">Globulin Center </content>3.3 G/DL<content styleCode="Ital ics"> (2.3-3.5 G/DL)</content> ID Date Data Source CardiacMarkers.[id number] 08/04/2019 09:38:00 AM LILLIAN daily [facility] -0400 Name Value Range Interpretation Description Data Sup porting Code Source(s) Document(s ) Troponin < 0.034 <content [facility] I.cardiac styleCode="Bold [facility] [Mass/volume ">Troponin I Medical ] in Serum </content>< Center or Plasma 0.012 NG/ML<content styleCode="Ital ics"> (< 0.034 NG/ML)</content > ID Date Data Source [id number] 08/04/2019 09:38:00 AM LILLIAN Dalton Galindo [facility] Name Value Range Interpretation Description Data Sup porting Code Source(s) Document(s ) Sodium 137-145 <content [facility] [Moles/volume] in styleCode="Bold"> Bladimir phs Serum or Plasma Sodium Medical </content>139 Center MEQ/L<content styleCode="Italic s"> (137-145 MEQ/L)</content> Potassium 3.5-5.3 <content [facility] [Moles/volume] in styleCode="Bold"> Bladimir phs Serum or Plasma Potassium Medical </content>4.4 Center MEQ/L<content styleCode="Italic s"> (3.5-5.3 MEQ/L)</content> Calcium 8.4-10. <content [facility] [Mass/volume] in 2 styleCode="Bold"> Nir hs Serum or Plasma Calcium Medical </content>9.5 Center MG/DL<content styleCode="Italic s"> (8.4-10.2 MG/DL)</content> Glucose 74-106 <content [facility] [Mass/volume] in styleCode="Bold"> Nir hs Serum or Plasma Glucose Medical </content>93 Center MG/DL<content styleCode="Italic s"> (74-106 MG/DL)</content> Creatinine 0.5-1.3 <content [facility] [Mass/volume] in styleCode="Bold"> Nir hs Serum or Plasma Creatinine Medical </content>0.9 Center MG/DL<content styleCode="Italic s"> (0.5-1.3 MG/DL)</content> Chloride 98-107 <content [facility] [Moles/volume] in styleCode="Bold"> Bladimir phs Serum or Plasma Chloride Medical </content>103 Center MEQ/L<content styleCode="Italic s"> (98-107 MEQ/L)</content> Carbon dioxide, 22-30 <content [facility] total styleCode="Bold"> Johanny [Moles/volume] in Carbon Dioxide Medical Serum or Plasma </content>27 Center MEQ/L<content styleCode="Italic s"> (22-30 MEQ/L)</content> UNK 7-17 <content Saint styleCode="Bold"> Johanny BUN </content>14 Medical MG/DL<content Center styleCode="Italic s"> (7-17 MG/DL)</content> Alkaline 38-126 <content [facility] phosphatase styleCode="Bold"> Johanny [Enzymatic Alkaline Medical activity/volume] Phosphatase (ALP) Cente r in Serum or Plasma </content>88 IU/L<content styleCode="Italic s"> (38-126 IU/L)</content> Aspartate 14-36 Above high <content [facility] aminotransferase normal styleCode="Bold"> Nir hs [Enzymatic Aspartate Medical activity/volume] Aminotransferase Center in Serum or Plasma (AST) </content>48 IU/L H<content styleCode="Italic s"> (14-36 IU/L)</content> UNK > 60 <content [facility] styleCode="Bold"> Johanny EGFR </content>82 Medical GFR<content Center styleCode="Italic s"> (> 60 GFR)</content> Bilirubin.total 0.2-1.3 <content [facility] [Mass/volume] in styleCode="Bold"> Nir hs Serum or Plasma Bilirubin Total Medical </content>0.4 Center MG/DL<content styleCode="Italic s"> (0.2-1.3 MG/DL)</content> Alanine 7-30 <content [facility] aminotransferase styleCode="Bold"> Nir hs [Enzymatic Alanine Medical activity/volume] Aminotransferase Center in Serum or Plasma (ALT) </content>24 IU/L<content styleCode="Italic s"> (7-30 IU/L)</content> Albumin 3.5-5.0 <content [facility] [Mass/volume] in styleCode="Bold"> Nir hs Serum or Plasma Albumin Medical </content>4.7 Center G/DL<content styleCode="Italic s"> (3.5-5.0 G/DL)</content> ID Date Data Source [id number] 08/04/2019 09:37:00 AM EST Will [facility] 400 Name Value Range Interpretation Code Description Data Maame rce(s) Supporting Document(s ) UNK <item><content [facility] styleCode="Bold"> Medical [facility] er Culture Status </content>
<t able><tbody><tr>< td>Specimen Number:</td><td>[id number]</td></tr ><tr><td>Sample Collection Date/Time: </td><td>08/04/2019 10:37 AM</td></tr><tr>< td>Specimen Source:</td><td>B LOOD</td></tr><tr ><td>Culture Report:</td><td>C ulture in progress </td></tr><tr><td >Culture Status:</td><td>P reliminary </td></tr><tr><td >Blood Culture:</td><td> Collection Plate Date: 08/04/2019 10:44 </td></tr></tbody ></table></item> UNK <item><content [facility] styleCode="Bold"> Medical Cent er Culture Report </content>
<t able><tbody><tr>< td>Specimen Number:</td><td>[id number]</td></tr ><tr><td>Sample Collection Date/Time: </td><td>08/04/2019 10:37 AM</td></tr><tr>< td>Specimen Source:</td><td>B LOOD</td></tr><tr ><td>Blood Culture:</td><td> Collection Plate Date: 08/04/2019 10:44 </td></tr><tr><td >Culture Status:</td><td>P reliminary </td></tr><tr><td >Culture Report:</td><td>C ulture in progress </td></tr></tbody ></table></item> Procedure Social History Code Duration Value Status Description Data Source(s ) Smoking 01/12/2020 10:35:00 Daily Smoker completed Daily Smoker S [facility] Smoking 01/12/2020 10:13:00 Daily Smoker completed Daily Smoker S [facility] Smoking 12/16/2019 02:54:00 Daily Smoker completed Daily Smoker S [facility] Smoking 12/16/2019 01:12:00 Daily Smoker completed Daily Smoker S [facility] Smoking 12/16/2019 01:06:00 Daily Smoker completed Daily Smoker S [facility] Smoking 10/19/2019 06:27:00 Daily Smoker completed Daily Smoker S [facility] Center Smoking 10/19/2019 04:20:00 Daily Smoker completed Daily Smoker S [facility] Smoking 10/19/2019 03:39:00 Daily Smoker completed Daily Smoker S [facility] Smoking 09/20/2019 02:05:00 Daily Smoker completed Daily Smoker S [facility] Center Smoking 09/20/2019 01:40:00 Daily Smoker completed Daily Smoker S [facility] Smoking 09/20/2019 01:30:00 Daily Smoker completed Daily Smoker S [facility] Smoking 09/18/2019 02:33:00 Daily Smoker completed Daily Smoker S [facility] Center Smoking 09/18/2019 02:31:00 [facility] 02:27:00 Daily [facility] 09/17/2019 06:32:00 Daily [facility] 09/17/2019 04:00:00 Daily [facility] 08/04/2019 09:15:00 Daily Smoker completed Daily Smoker S [facility] EST Center Smoking 08/04/2019 09:00:00 Daily Smoker completed Daily Smoker S [facility] EST Center Smoking 08/04/2019 08:43:00 Daily Smoker completed Daily Smoker S [facility] EST Center Vital Signs ID Date Data Source UNK Name Value Range Interpretation Code Description Data Source(s) Body weight 47.839330 kg 47.904522 kg [facility] Body temperature 36.508083 Nataly 36.737462 Nataly [facility] Respiratory rate 18 /min 18 /min [facility] Oxygen 100 % 100 % [facility] saturation in Medical Arterial blood Center by Pulse oximetry Heart rate 67 /min 67 /min [facility] Body height 157.591764 cm 157.176257 cm Health system Diastolic blood 73 mm[Hg] 73 mm[Hg] [facility] pressure [facility] Systolic blood 137 mm[Hg] 137 mm[Hg] [facility] Body mass index 19.2 kg/m2 19.2 kg/m2 [facility] (BMI) [Ratio] Medical Center Body temperature 36.985537 Nataly 36.437371 Nataly [facility] Respiratory rate 17 /min 17 /min [facility] Oxygen 100 % 100 % [facility] saturation in Medical Arterial blood Center by Pulse oximetry Heart rate 68 /min 68 /min [facility] Diastolic blood 79 mm[Hg] 79 mm[Hg] [facility] Systolic blood 123 mm[Hg] 123 mm[Hg] [facility] Body temperature 36.748646 Nataly 36.756635 Nataly [facility] Respiratory rate 20 /min 20 /min [facility] Oxygen 99 % 99 % [facility] saturation in Medical Arterial blood Center by Pulse oximetry Heart rate 66 /min 66 /min [facility] Diastolic blood 78 mm[Hg] 78 mm[Hg] [facility] Systolic blood 108 mm[Hg] 108 mm[Hg] [facility] Respiratory rate 20 /min 20 /min [facility] Oxygen 97 % 97 % [place] saturation in Medical Arterial blood Center by Pulse oximetry Heart rate 64 /min 64 /min [facility] Diastolic blood 79 mm[Hg] 79 mm[Hg] [facility] pressure Medical Center Systolic blood 116 mm[Hg] 116 mm[Hg] [facility] Body temperature 36.032248 Nataly 36.294026 Nataly [facility] Body temperature 36.110899 Nataly 36.249271 Nataly [facility] Respiratory rate 17 /min 17 /min [facility] Oxygen 97 % 97 % [place] saturation in Medical Arterial blood Center by Pulse oximetry Heart rate 90 /min 90 /min [facility] Diastolic blood 76 mm[Hg] 76 mm[Hg] [facility] Systolic blood 116 mm[Hg] 116 mm[Hg] [facility] Body temperature 37.812797 Nataly 37.722391 Nataly [facility] Respiratory rate 17 /min 17 /min [facility] Oxygen 97 % 97 % [place] saturation in Medical Arterial blood Center by Pulse oximetry Heart rate 92 /min 92 /min [facility] Diastolic blood 74 mm[Hg] 74 mm[Hg] [facility] Systolic blood 114 mm[Hg] 114 mm[Hg] [facility] [place] Body weight 56.657516 kg 56.697721 kg [facility] Medical [place] Body temperature 36.529105 Nataly 36.260588 Nataly [facility] Respiratory rate 18 /min 18 /min [facility] Oxygen 97 % 97 % [place] saturation in Medical Arterial blood Center by Pulse oximetry Heart rate 69 /min 69 /min [facility] Body height 157.645985 cm 157.693359 cm Health system Diastolic blood 78 mm[Hg] 78 mm[Hg] [facility] Systolic blood 109 mm[Hg] 109 mm[Hg] [facility] Body mass index 22.8 kg/m2 22.8 kg/m2 [facility] (BMI) [Ratio] Medical Center Body temperature 36.301512 Nataly 36.373718 Nataly [facility] Respiratory rate 16 /min 16 /min [facility] Oxygen 99 % 99 % [facility] saturation in Medical Arterial blood Center by Pulse oximetry Heart rate 71 /min 71 /min [facility] Diastolic blood 59 mm[Hg] 59 mm[Hg] [facility] Systolic blood 129 mm[Hg] 129 mm[Hg] [facility] Body temperature 36.804911 Nataly 36.730130 Nataly [facility] Respiratory rate 18 /min 18 /min [facility] Oxygen 97 % 97 % [facility] saturation in Medical Arterial blood Center by Pulse oximetry Heart rate 78 /min 78 /min [facility] Diastolic blood 68 mm[Hg] 68 mm[Hg] [facility] Systolic blood 113 mm[Hg] 113 mm[Hg] [facility] Body temperature 37.505983 Nataly 37.976658 Nataly [facility] Respiratory rate 20 /min 20 /min [facility] Oxygen 98 % 98 % [facility] saturation in Medical Arterial blood Center by Pulse oximetry Heart rate 82 /min 82 /min [facility] Diastolic blood 57 mm[Hg] 57 mm[Hg] [facility] Systolic blood 111 mm[Hg] 111 mm[Hg] [facility] Body weight 58.636599 kg 58.252419 kg [facility] Body temperature 36.696260 Nataly 36.017435 Nataly [facility] Respiratory rate 18 /min 18 /min [facility] Oxygen 98 % 98 % [facility] saturation in Medical Arterial blood Center by Pulse oximetry Heart rate 88 /min 88 /min [facility] Body height 157.212319 cm 157.889370 cm Health system Diastolic blood 50 mm[Hg] 50 mm[Hg] [facility] Systolic blood 139 mm[Hg] 139 mm[Hg] [facility] Body mass index 23.5 kg/m2 23.5 kg/m2 [facility] (BMI) [Ratio] Medical Center Diastolic blood 80 mmHg 80 mmHg [facility] Systolic blood 129 mmHg 129 mmHg [facility] Respiratory rate 18 bpm 18 bpm [facility] Heart rate 78 bpm 78 bpm [facility] Body temperature 98.4 Fahrenheit 98.4 Fahrenhei t [facility] Diastolic blood 78 mmHg 78 mmHg [facility] Systolic blood 114 mmHg 114 mmHg [facility] Respiratory rate 16 bpm 16 bpm [facility] Heart rate 75 bpm 75 bpm [facility] Body temperature 97.8 Fahrenheit 97.8 Fahrenhei t [facility] Body weight 129 lbs 129 lbs [facility] Diastolic blood 79 mmHg 79 mmHg [facility] Systolic blood 135 mmHg 135 mmHg [facility] Respiratory rate 18 bpm 18 bpm [facility] Heart rate 65 bpm 65 bpm [facility] Body temperature 97.4 Fahrenheit 97.4 Fahrenhei t [facility] Diastolic blood 79 mmHg 79 mmHg [facility] Systolic blood 135 mmHg 135 mmHg [facility] Respiratory rate 18 bpm 18 bpm [facility] Heart rate 65 bpm 65 bpm [facility] Body temperature 97.4 Fahrenheit 97.4 Fahrenhei t [facility] Diastolic blood 74 mmHg 74 mmHg [facility] Systolic blood 105 mmHg 105 mmHg [facility] Respiratory rate 18 bpm 18 bpm [facility] Heart rate 84 bpm 84 bpm [facility] Body temperature 97.9 Fahrenheit 97.9 Fahrenhei t [facility] Diastolic blood 74 mmHg 74 mmHg [facility] Systolic blood 105 mmHg 105 mmHg [facility] Respiratory rate 20 bpm 20 bpm [facility] Heart rate 84 bpm 84 bpm [facility] Body temperature 97.0 Fahrenheit 97.0 Fahrenhei t [facility] Diastolic blood 76 mmHg 76 mmHg [facility] Systolic blood 111 mmHg 111 mmHg [facility] Respiratory rate 18 bpm 18 bpm [facility] Heart rate 73 bpm 73 bpm [facility] Body temperature 97.8 Fahrenheit 97.8 Fahrenhei t [facility] Diastolic blood 83 mmHg 83 mmHg [facility] Systolic blood 126 mmHg 126 mmHg [facility] Respiratory rate 18 bpm 18 bpm [facility] Heart rate 71 bpm 71 bpm [facility] Body temperature 97.8 Fahrenheit 97.8 Fahrenhei t [facility] Diastolic blood 74 mmHg 74 mmHg [facility] Systolic blood 118 mmHg 118 mmHg [facility] Respiratory rate 18 bpm 18 bpm [facility] Heart rate 69 bpm 69 bpm [facility] Body temperature 97.7 Fahrenheit 97.7 Fahrenhei t [facility] Diastolic blood 75 mmHg 75 mmHg [facility] Systolic blood 118 mmHg 118 mmHg [facility] Respiratory rate 18 bpm 18 bpm [facility] Heart rate 83 bpm 83 bpm [facility] Body temperature 98.7 Fahrenheit 98.7 Fahrenhei t [facility] Diastolic blood 70 mmHg 70 mmHg [facility] Systolic blood 101 mmHg 101 mmHg [facility] Respiratory rate 18 bpm 18 bpm [facility] Heart rate 73 bpm 73 bpm [facility] Body temperature 96.1 Fahrenheit 96.1 Fahrenhei t [facility] Body weight 129 lbs 129 lbs [facility] Diastolic blood 79 mmHg 79 mmHg [facility] Systolic blood 126 mmHg 126 mmHg [facility] Respiratory rate 18 bpm 18 bpm [facility] Heart rate 73 bpm 73 bpm [facility] Diastolic blood 70 mmHg 70 mmHg [facility] Systolic blood 105 mmHg 105 mmHg [facility] Respiratory rate 18 bpm 18 bpm [facility] Heart rate 72 bpm 72 bpm [facility] Body temperature 97.8 Fahrenheit 97.8 Fahrenhei t [facility] Diastolic blood 72 mmHg 72 mmHg [facility] Systolic blood 119 mmHg 119 mmHg [facility] Respiratory rate 18 bpm 18 bpm [facility] Heart rate 72 bpm 72 bpm [facility] Body temperature 97.8 Fahrenheit 97.8 Fahrenhei t [facility] Diastolic blood 75 mmHg 75 mmHg [facility] Systolic blood 110 mmHg 110 mmHg [facility] Respiratory rate 18 bpm 18 bpm [facility] Heart rate 91 bpm 91 bpm [facility] Diastolic blood 88 mmHg 88 mmHg [facility] Systolic blood 134 mmHg 134 mmHg [facility] Respiratory rate 18 bpm 18 bpm [facility] Heart rate 77 bpm 77 bpm [facility] Body temperature 98.1 Fahrenheit 98.1 Fahrenhei t [facility] Diastolic blood 88 mmHg 88 mmHg [facility] Systolic blood 134 mmHg 134 mmHg [facility] Respiratory rate 18 bpm 18 bpm [facility] Heart rate 77 bpm 77 bpm [facility] Body temperature 98.1 Fahrenheit 98.1 [facility] ID Date Data Source [id number] 07/27/2019 10:35:54 PM [facility] Name Value Range Interpretation Code Description Data Source(s) Body weight Measured 129 lb 129 lb [facility] Body weight Measured 129 lb 129 lb [facility] ID Date Data Source [id number] 07/27/2019 10:36:58 PM [facility] Name Value Range Interpretation Code Description Data Source(s) Body weight Measured 129 lb 129 lb [facility]
[2020-03-21 09:18] VITALS: BMI 19.3
--- NOTE | 2020-03-21 09:29 | BHS.RME ---
2019 N Coronavirus Screen - COVID-19 Screening Questions Dx of COVID-19 or had a positive test in the last 4 weeks?: No Contact with known/suspected COVID patient in last 14 days?: No Any of these symptoms or contact with someone who has?: None Traveled domestically/internationally in the last 14 days?: No Screen score: 0 Screen result: Further Evaluation Substance Use & Tx History - Substance Use History Alcohol Substance amount: 3 x 6 pack of 12 ounce beer Frequency of use: Daily Substance route: Oral Date of Last Use: 03/21/20 Cocaine-Crack Substance amount: $200 Frequency of use: Daily Substance route: Smoking Nicotine Substance amount: one pack Frequency of use: Daily Substance route: Smoking Date of Last Use: 03/21/20 Physical/Psych/Mental Status - Behavior General Behavior: Increased activity (restlessness, agitation) Eye Contact: Normal - Cooperativeness Cooperativeness: Cooperative - Thinking Thought Processes: Tight Thought content: Future oriented - Physical Health Problems Is patient presently having any pain?: Yes (chronic right hip pain) Does patient presently have any injuries (include location): No Does patient currently have a fever: No CIWA Nausea/Vomitin-Mild Nausea/No Vomiting Muscle Tremors: 3 Anxiety: 2 Agitation: 1-Slight > Activity Paroxysmal Sweats: 1-Minimal Palms Moist Orientation: 2-Disoriented Date<2 days Tacttile Disturbances: 0-None Auditory Disturbances: 0-None Visual Disturbances: 0-None Headache: 2-Mild CIWA-Ar Total Score: 12
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
[2020-03-21] MEDS ORDERED: MAG HYDROX/AL HYDROX/SIMETH 30 ML UNIT-DOSE CUP PO PRN (10:15)
[2020-03-21] MEDS ORDERED: MAGNESIUM HYDROX 2400MG/30ML ORAL SUSPENSION 30 ML CUP PO PRN (10:15)
[2020-03-21] MEDS ORDERED: NICOTINE POLACRILEX 2 MG GUM BUC PRN (10:15)
[2020-03-21] MEDS ORDERED: MAGNESIUM CITRATE 300 ML BOTTLE PO PRN (10:15)
[2020-03-21] MEDS ORDERED: BISMUTH SUBSALICYLATE 262 MG/15 ML BTL PO PRN (10:15)
[2020-03-21] MEDS ORDERED: ONDANSETRON *ODT* 4 MG TABLET SL PRN (10:15)
[2020-03-21] MEDS ORDERED: MENTHOL/PHENOL 1 EACH UD MM PRN (10:15)
[2020-03-21] MEDS ORDERED: diazePAM 5 MG TABLET PO PRN (10:15)
[2020-03-21] MEDS ORDERED: ACETAMINOPHEN 325 MG TABLET (FP) PO PRN ×2 (10:15)
[2020-03-21] MEDS: PRENATAL VITAMINS W/ FOLIC ACID TABLET (FP) PO SCH (11:11)
[2020-03-21] MEDS: NICOTINE 7 MG/24 HOURS TOPICAL PATCH TD SCH (11:11)
[2020-03-21] MEDS: diazePAM 5 MG TABLET PO SCH ×3 (11:11→22:29)
[2020-03-21] MEDS: METHOCARBAMOL 500 MG TABLET PO PRN ×2 (11:29→17:49)
[2020-03-21] MEDS: IBUPROFEN 400 MG TABLET (FP) PO PRN ×2 (11:29→17:49)
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
[2020-03-21] MEDS: hydrOXYzine PAMOATE 25 MG CAPSULE (FP) PO SCH ×3 (13:04→22:29)
[2020-03-21 14:35] LABS: POTASSIUM 4.2 mmol/L (3.5-5.1)
[2020-03-21 14:36] LABS: HEMATOCRIT 35.9 % (32.4-45.2); MCH 33.2 pg (25.7-33.7); MCHC 33.4 g/dl (32.0-36.0); MEAN CELL VOLUME 99.3 fl (80-96); MEAN PLT VOLUME 7.2 fl (7.5-11.1); PLATELET COUNT 325 K/MM3 (134-434); RBC 3.62 M/mm3 (3.60-5.2); RDW 12.8 % (11.6-15.6); WHITE BLOOD COUNT 3.2 K/mm3 (4.0-10.0)
[2020-03-21 14:40] LABS: ALBUMIN 3.7 g/dl (3.4-5.0); BLOOD UREA NITROGEN 16.9 mg/dL (7-18); CALCIUM 9.7 mg/dL (8.5-10.1)
[2020-03-21 14:43] LABS: CREATININE 0.9 mg/dL (0.55-1.3)
[2020-03-21 14:45] LABS: BILIRUBIN,TOTAL 0.5 mg/dL (0.2-1)
[2020-03-21] MEDS: traZODone HCL 50 MG TABLET (FP) PO SCH (22:29)
[2020-03-21] MEDS: MECLIZINE HCL 25 MG TABLET (FP) PO SCH (22:29)
[2020-03-21] MEDS: THIAMINE HCL 100 MG TABLET (FP) PO SCH (22:29)
[2020-03-21] MEDS: MELATONIN 5 MG TABLETS PO SCH (22:31)
[2020-03-22] MEDS: diazePAM 5 MG TABLET PO SCH ×4 (06:34→22:14)
[2020-03-22] MEDS: hydrOXYzine PAMOATE 25 MG CAPSULE (FP) PO SCH ×5 (06:34→22:15)
--- NOTE | 2020-03-22 09:57 | PN ---
S CIWA - CIWA Score Nausea/Vomitin-Mild Nausea/No Vomiting Muscle Tremors: 2 Anxiety: 2 Agitation: 1-Slight > Activity Paroxysmal Sweats: No Perspiration Orientation: 0-Oriented Tacttile Disturbances: 1-Very Mild Itch/Numbness Auditory Disturbances: 0-None Visual Disturbances: 1-Very Mild Sensitivity Headache: 1-Very Mild CIWA-Ar Total Score: 9 BHS Progress Note (SOAP) Subjective: 59 years old female was admitted on 03/21/20 for alcohol withdrawal sx management tretaing with valium detox regiment feels ok today ate small amount of breakfast resting in bed bmi 19.4 ensure 120 ml po tid with meals prefers to sleep longer speech clearly limited conversation with staff Objective: 03/22/20 10:00 Vital Signs - 24 hr 03/21/20 03/21/20 03/21/20 10:15 11:00 12:37 Temperature 97.8 F 96.8 F L 97.3 F L Pulse Rate 74 64 87 Respiratory 18 18 18 Rate Blood Pressure 111/64 110/73 112/70 O2 Sat by Pulse 96 Oximetry (%) 03/21/20 03/21/20 03/22/20 16:47 20:33 06:36 Temperature 97.3 F L 97.3 F L 98.4 F Pulse Rate 78 76 61 Respiratory 16 16 20 Rate Blood Pressure 118/76 138/90 110/70 O2 Sat by Pulse 98 98 Oximetry (%) 03/22/20 08:50 Temperature 97.7 F Pulse Rate 71 Respiratory 18 Rate Blood Pressure 103/6 L O2 Sat by Pulse 98 Oximetry (%) Laboratory Tests 03/21/20 03/21/20 03/21/20 10:29 10:29 10:29 WBC 3.2 L RBC 3.62 Hgb 12.0 Hct 35.9 MCV 99.3 H MCH 33.2 MCHC 33.4 RDW 12.8 Plt Count 325 MPV 7.2 L Sodium 142 Potassium 4.2 Chloride 110 H Carbon Dioxide 25 Anion Gap 7 L BUN 16.9 Creatinine 0.9 Est GFR (CKD-EPI)AfAm 79.98 Est GFR (CKD-EPI)NonAf 69.01 Random Glucose 80 Calcium 9.7 Total Bilirubin 0.5 AST 66 H ALT 47 Alkaline Phosphatase 82 Total Protein 7.0 Albumin 3.7 Syphilis Serology Reactive A* 03/22/20 10:03 syphilis contacted treated Assessment: 03/22/20 10:03 alcohol withdrawal Plan: valium regiment
[2020-03-22] MEDS: FERROUS SO4 325 MG TABLET (FP) PO SCH (10:10)
[2020-03-22] MEDS: PRENATAL VITAMINS W/ FOLIC ACID TABLET (FP) PO SCH (10:10)
[2020-03-22] MEDS: MECLIZINE HCL 25 MG TABLET (FP) PO SCH ×2 (10:10→22:14)
[2020-03-22] MEDS: NICOTINE 7 MG/24 HOURS TOPICAL PATCH TD SCH (10:11)
[2020-03-22] MEDS: traZODone HCL 50 MG TABLET (FP) PO SCH (22:14)
[2020-03-22] MEDS: MELATONIN 5 MG TABLETS PO SCH (22:14)
[2020-03-22] MEDS: THIAMINE HCL 100 MG TABLET (FP) PO SCH (22:14)
[2020-03-23] MEDS ORDERED: diazePAM 5 MG TABLET PO SCH (06:00)
[2020-03-23] MEDS: hydrOXYzine PAMOATE 25 MG CAPSULE (FP) PO SCH ×2 (06:02→09:15)
--- NOTE | 2020-03-23 09:14 | PN ---
S CIWA - CIWA Score Nausea/Vomitin-Mild Nausea/No Vomiting Muscle Tremors: 2 Anxiety: 2 Agitation: 0-Normal Activity Paroxysmal Sweats: No Perspiration Orientation: 0-Oriented Tacttile Disturbances: 0-None Auditory Disturbances: 0-None Visual Disturbances: 1-Very Mild Sensitivity Headache: 0-None Present CIWA-Ar Total Score: 6 S Progress Note (SOAP) Subjective: 59 years old female was admitted on 03/21/20 for alcohol withdrawal sx management treating with valium detox regiment ambulating with cane slow steady from bed to bathroom ate breakfast in room tolerated food and ensure well discussing aftercare with staff ms campbell prefers to go to [facility] for her alcohol abuse treatment Objective: 03/23/20 09:15 Vital Signs - 24 hr 03/22/20 03/22/20 03/22/20 12:59 16:21 20:29 Temperature 97.1 F L 97.3 F L 97.3 F L Pulse Rate 76 77 84 Respiratory 16 18 16 Rate Blood Pressure 110/73 100/62 105/71 O2 Sat by Pulse 98 99 Oximetry (%) 03/23/20 03/23/20 06:42 08:40 Temperature 97.3 F L 97.1 F L Pulse Rate 85 98 H Respiratory 18 18 Rate Blood Pressure 107/70 103/65 O2 Sat by Pulse 99 99 Oximetry (%) Laboratory Tests 03/21/20 03/21/20 03/21/20 10:29 10:29 10:29 WBC 3.2 L RBC 3.62 Hgb 12.0 Hct 35.9 MCV 99.3 H MCH 33.2 MCHC 33.4 RDW 12.8 Plt Count 325 MPV 7.2 L Sodium 142 Potassium 4.2 Chloride 110 H Carbon Dioxide 25 Anion Gap 7 L BUN 16.9 Creatinine 0.9 Est GFR (CKD-EPI)AfAm 79.98 Est GFR (CKD-EPI)NonAf 69.01 Random Glucose 80 Calcium 9.7 Total Bilirubin 0.5 AST 66 H ALT 47 Alkaline Phosphatase 82 Total Protein 7.0 Albumin 3.7 Syphilis Serology Reactive A* RPR Titer COVID-19 (TABITHA) 03/21/20 03/21/20 10:29 16:00 WBC RBC Hgb Hct MCV MCH MCHC RDW Plt Count MPV Sodium Potassium Chloride Carbon Dioxide Anion Gap BUN Creatinine Est GFR (CKD-EPI)AfAm Est GFR (CKD-EPI)NonAf Random Glucose Calcium Total Bilirubin AST ALT Alkaline Phosphatase Total Protein Albumin Syphilis Serology RPR Titer Reactive 1:1 H COVID-19 (TABITHA) Not detected syphilis contacted treated treated "years" ago received boost shot penicillin on 01/202003/23/20 09:17 Assessment: 03/23/20 09:17 alcohol withdrawal Plan: valium regiment
[2020-03-23] MEDS: MECLIZINE HCL 25 MG TABLET (FP) PO SCH (09:15)
[2020-03-23] MEDS: PRENATAL VITAMINS W/ FOLIC ACID TABLET (FP) PO SCH (09:15)
[2020-03-23] MEDS: FERROUS SO4 325 MG TABLET (FP) PO SCH (09:15)
[2020-03-23] MEDS: NICOTINE 7 MG/24 HOURS TOPICAL PATCH TD SCH (09:15)
--- NOTE | 2020-03-23 13:05 | DS ---
[facility] Detox Discharge Summary Admission Date: 03/21/20 Discharge Date: 03/23/20 - History Present History: Alcohol Dependence Additional Comments: 59 years old female was admitted on 03/21/20 for alcohol withdrawal sx management treated with valium detox regiment ms campbell insists to leave the detox today that "I want to go home" ms campbell states that she has appointment with [facility] provider ms campbell is alert oriented x 3 speech clearly coherently ambulating without cane steady gait seen by psychiatrist resume trazodone General Appearance: Yes: no Distress, mild Tremorous, not Irritable, mild Anxious HEENTM: Yes: EOMI, Hearing grossly Normal, Normal ENT Inspection, Normocephalic, Normal Voice, LANI, Pharynx Normal, Tm's normal, Other (edentulous) Respiratory: Yes: Chest Non-Tender, Lungs Clear, Normal Breath Sounds, No Respiratory Distress, No Accessory Muscle Use Neck: Yes: No masses,lesions,Nodules, Supple, Trachea in good position Breast: Yes: Breast Exam Deferred Cardiology: Yes: Regular Rhythm, Regular Rate, S1, S2 Abdominal: Yes: Normal Bowel Sounds, Non Tender, Flat, Soft, Surgical Scar Genitourinary: Yes: Within Normal Limits Back: Yes: Normal Inspection Musculoskeletal: Yes: full range of Motion, Gait Steady, Pelvis Stable Extremities: Yes: Normal Capillary Refill, Normal Inspection, Normal Range of Motion, Non-Tender 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 NML intact, Fully Oriented, Alert, Motor Strength 5/5, Normal Mood/Affect, Normal Response Integumentary: Yes: Normal Color, Warm Lymphatic: Yes: Within Normal Limits Pertinent Past History: time for discharge 50 minutes treatment team met with ms campbell to discuss valium regiment completion ms campbell insists to go home "no peace here" ms campbell prefers returning to [facility] for alcohol abuse treatment - Physical Exam Results Vital Signs: Vital Signs Temperature 97.1 F L 03/23/20 08:40 Pulse Rate 98 H 03/23/20 08:40 Respiratory Rate 18 03/23/20 08:40 Blood Pressure 103/65 03/23/20 08:40 O2 Sat by Pulse Oximetry (%) 99 03/23/20 08:40 Pertinent Admission Physical Exam Findings: alcohol withdrawal Vital Signs - 24 hr 03/22/20 03/22/20 03/23/20 16:21 20:29 06:42 Temperature 97.3 F L 97.3 F L 97.3 F L Pulse Rate 77 84 85 Respiratory 18 16 18 Rate Blood Pressure 100/62 105/71 107/70 O2 Sat by Pulse 99 99 Oximetry (%) 03/23/20 03/23/20 08:40 13:08 Temperature 97.1 F L 97.3 F L Pulse Rate 98 H 102 H Respiratory 18 18 Rate Blood Pressure 103/65 104/65 O2 Sat by Pulse 99 97 Oximetry (%) Laboratory Tests 03/21/20 03/21/20 03/21/20 10:29 10:29 10:29 WBC 3.2 L RBC 3.62 Hgb 12.0 Hct 35.9 MCV 99.3 H MCH 33.2 MCHC 33.4 RDW 12.8 Plt Count 325 MPV 7.2 L Sodium 142 Potassium 4.2 Chloride 110 H Carbon Dioxide 25 Anion Gap 7 L BUN 16.9 Creatinine 0.9 Est GFR (CKD-EPI)AfAm 79.98 Est GFR (CKD-EPI)NonAf 69.01 Random Glucose 80 Calcium 9.7 Total Bilirubin 0.5 AST 66 H ALT 47 Alkaline Phosphatase 82 Total Protein 7.0 Albumin 3.7 Syphilis Serology Reactive A* RPR Titer COVID-19 (TABITHA) 03/21/20 03/21/20 10:29 16:00 WBC RBC Hgb Hct MCV MCH MCHC RDW Plt Count MPV Sodium Potassium Chloride Carbon Dioxide Anion Gap BUN Creatinine Est GFR (CKD-EPI)AfAm Est GFR (CKD-EPI)NonAf Random Glucose Calcium Total Bilirubin AST ALT Alkaline Phosphatase Total Protein Albumin Syphilis Serology RPR Titer Reactive 1:1 H COVID-19 (TABITHA) Not detected syphilis contacted treated - Treatment Hospital Course: Detox Protocol Followed, Detoxed Safely, Responded well, Discharged Condition Good, Rehab Referral Accepted Patient has Accepted a Rehab Referral to: [facility] - Medication Discharge Medications: Ambulatory Orders Ferrous Sulfate [Feosol] 325 mg PO DAILY 03/21/20 Meclizine HCl [Antivert -] 25 mg PO BID 03/21/20 traZODone HCL [Trazodone HCl] 50 mg PO HS 03/21/20 - Diagnosis (1) Substance induced mood disorder Status: Suspected (2) Alcohol dependence with uncomplicated withdrawal Status: Acute (3) Nicotine dependence Status: Acute Qualifiers: Nicotine product type: cigarettes Substance use status: in withdrawal Qualified Code(s): F17.213 - Nicotine dependence, cigarettes, with withdrawal (4) Syphilis contact, treated Status: Chronic - AMA Did Patient Leave Against Medical Advice: No CIWA Score - CIWA Score Nausea/Vomitin-Mild Nausea/No Vomiting Muscle Tremors: 1-None Visible, but [place] Anxiety: 1-Mildly Anxious Agitation: 0-Normal Activity Paroxysmal Sweats: No Perspiration Orientation: 0-Oriented Tacttile Disturbances: 0-None Auditory Disturbances: 0-None Visual Disturbances: 0-None Headache: 0-None Present CIWA-Ar Total Score: 3
[2020-03-23 13:08] VITALS: BP 104/65; PULSE 102; TEMP 97.3
[2020-03-24] MEDS ORDERED: diazePAM 5 MG TABLET PO SCH (06:00)
[2020-03-25] MEDS ORDERED: diazePAM 5 MG TABLET PO ONE (06:00)
== END 2020-03-23 13:45 | disposition home or self-care (01) | DRG 774 ==
LOC: YASAS 08:46 → Y3N 09:45
PROVIDERS: ADMIT Allergy & Immunology; ATTEND Allergy & Immunology
PROC: HZ2ZZZZ Detoxification Services for Substance Abuse Treatment (ICD-10-PCS; principal; 2020-03-21)
DX: F10.230 Alcohol dependence with withdrawal, uncomplicated (principal); F14.20 Cocaine dependence, uncomplicated; F17.210 Nicotine dependence, cigarettes, uncomplicated; F19.24 Other psychoactive substance dependence with psychoactive substance-induced mood disorder; F19.282 Other psychoactive substance dependence with psychoactive substance-induced sleep disorder; F32.9 Major depressive disorder, single episode, unspecified; E78.5 Hyperlipidemia, unspecified; E05.90 Thyrotoxicosis, unspecified without thyrotoxic crisis or storm; D64.9 Anemia, unspecified; Z99.89 Dependence on other enabling machines and devices
CPT/HCPCS: 36415; 80053; 85027; 86593; 86780; C9803; U0003

== ENCOUNTER 2020-05-13 10:15 | Inpatient (IN) | payer OTHER ==
[2020-05-13 12:47] VITALS: BMI 19.3
[2020-05-13] MEDS ORDERED: METHOCARBAMOL 500 MG TABLET PO PRN (16:40)
[2020-05-13] MEDS ORDERED: MAG HYDROX/AL HYDROX/SIMETH 30 ML UNIT-DOSE CUP PO PRN (16:40)
[2020-05-13] MEDS ORDERED: ONDANSETRON *ODT* 4 MG TABLET SL PRN (16:40)
[2020-05-13] MEDS ORDERED: hydrOXYzine PAMOATE 25 MG CAPSULE (FP) PO PRN (16:40)
[2020-05-13] MEDS ORDERED: MAGNESIUM CITRATE 300 ML BOTTLE PO PRN (16:40)
[2020-05-13] MEDS ORDERED: MENTHOL/PHENOL 1 EACH UD MM PRN (16:40)
[2020-05-13] MEDS ORDERED: ACETAMINOPHEN 325 MG TABLET (FP) PO PRN ×2 (16:40)
[2020-05-13] MEDS ORDERED: BISMUTH SUBSALICYLATE 524 MG/30 ML UD PO PRN (16:40)
[2020-05-13] MEDS ORDERED: MAGNESIUM HYDROX 2400MG/30ML ORAL SUSPENSION 30 ML CUP PO PRN (16:40)
[2020-05-13] MEDS ORDERED: diazePAM 5 MG TABLET PO PRN (16:42)
[2020-05-13] MEDS ORDERED: MECLIZINE HCL 25 MG TABLET (FP) PO PRN (16:42)
[2020-05-13] MEDS: ALBUTEROL SO4 HFA INHALER IH SCH ×2 (19:34→23:14)
[2020-05-13] MEDS: diazePAM 5 MG TABLET PO SCH ×2 (19:34→22:26)
[2020-05-13] MEDS: THIAMINE HCL 100 MG TABLET (FP) PO SCH (22:26)
[2020-05-13] MEDS: MELATONIN 5 MG TABLETS PO PRN (22:26)
[2020-05-13] MEDS: HYDROCORTISONE 1% TOPICAL OINT 30 GM TUBE TP SCH (22:30)
[2020-05-14] MEDS: diazePAM 5 MG TABLET PO SCH ×4 (05:24→22:16)
[2020-05-14] MEDS: ALBUTEROL SO4 HFA INHALER IH SCH ×4 (07:10→23:14)
[2020-05-14 09:19] LABS: HEMATOCRIT 33.6 % (32.4-45.2); HEMOGLOBIN 11.3 GM/dL (10.7-15.3); MCH 33.4 pg (25.7-33.7); MCHC 33.7 g/dl (32.0-36.0); MEAN CELL VOLUME 99.1 fl (80-96); MEAN PLT VOLUME 7.4 fl (7.5-11.1); PLATELET COUNT 288 K/MM3 (134-434); RBC 3.39 M/mm3 (3.60-5.2); RDW 12.4 % (11.6-15.6); WHITE BLOOD COUNT 3.4 K/mm3 (4.0-10.0)
[2020-05-14 09:22] LABS: ALBUMIN 3.1 g/dl (3.4-5.0); CALCIUM 8.5 mg/dL (8.5-10.1)
[2020-05-14 09:23] LABS: BLOOD UREA NITROGEN 18.9 mg/dL (7-18)
[2020-05-14 09:26] LABS: CREATININE 0.8 mg/dL (0.55-1.3)
[2020-05-14 09:27] LABS: BILIRUBIN,TOTAL 0.9 mg/dL (0.2-1); TOT PROT 5.9 g/dl (6.4-8.2)
[2020-05-14] MEDS: PRENATAL VITAMINS W/ FOLIC ACID TABLET (FP) PO SCH (10:02)
[2020-05-14] MEDS: HYDROCORTISONE 1% TOPICAL OINT 30 GM TUBE TP SCH ×2 (10:04→22:16)
[2020-05-14] MEDS: IBUPROFEN 400 MG TABLET (FP) PO PRN (14:47)
[2020-05-14] MEDS: THIAMINE HCL 100 MG TABLET (FP) PO SCH (22:16)
[2020-05-14] MEDS: traZODone HCL 50 MG TABLET (FP) PO SCH (22:16)
[2020-05-15] MEDS: diazePAM 5 MG TABLET PO SCH ×3 (05:51→22:19)
[2020-05-15] MEDS: ALBUTEROL SO4 HFA INHALER IH SCH ×4 (05:52→23:36)
[2020-05-15] MEDS: HYDROCORTISONE 1% TOPICAL OINT 30 GM TUBE TP SCH ×2 (09:56→22:18)
[2020-05-15] MEDS: PRENATAL VITAMINS W/ FOLIC ACID TABLET (FP) PO SCH (10:10)
[2020-05-15] MEDS: IBUPROFEN 400 MG TABLET (FP) PO PRN (13:26)
[2020-05-15] MEDS: THIAMINE HCL 100 MG TABLET (FP) PO SCH (22:16)
[2020-05-15] MEDS: traZODone HCL 50 MG TABLET (FP) PO SCH (22:16)
[2020-05-15] MEDS: BENZOCAINE 28 GM HEMORRHOIDAL OINTMENT PR PRN (22:16)
[2020-05-15] MEDS: MELATONIN 5 MG TABLETS PO PRN (22:17)
[2020-05-16] MEDS ORDERED: diazePAM 5 MG TABLET PO ONE (06:00)
[2020-05-16] MEDS: ALBUTEROL SO4 HFA INHALER IH SCH ×2 (06:24→11:48)
[2020-05-16] MEDS: HYDROCORTISONE 1% TOPICAL OINT 30 GM TUBE TP SCH ×2 (09:07→22:03)
[2020-05-16] MEDS: PRENATAL VITAMINS W/ FOLIC ACID TABLET (FP) PO SCH (09:07)
[2020-05-16] MEDS ORDERED: ALBUTEROL SO4 HFA INHALER IH PRN (11:50)
[2020-05-16 21:08] VITALS: TEMP 97.3
[2020-05-16] MEDS: THIAMINE HCL 100 MG TABLET (FP) PO SCH (22:02)
[2020-05-16] MEDS: traZODone HCL 50 MG TABLET (FP) PO SCH (22:02)
[2020-05-16] MEDS: MELATONIN 5 MG TABLETS PO PRN (22:03)
[2020-05-16] MEDS: IBUPROFEN 400 MG TABLET (FP) PO PRN (22:04)
[2020-05-17] MEDS ORDERED: diazePAM 5 MG TABLET PO ONE (05:00)
[2020-05-17 09:00] VITALS: BP 105/73; PULSE 78
[2020-05-17] MEDS: PRENATAL VITAMINS W/ FOLIC ACID TABLET (FP) PO SCH (09:37)
[2020-05-17] MEDS: HYDROCORTISONE 1% TOPICAL OINT 30 GM TUBE TP SCH (09:37)
[2020-05-17] MEDS: BENZOCAINE 28 GM HEMORRHOIDAL OINTMENT PR PRN (09:38)
== END 2020-05-17 12:34 | disposition other institution (70) | DRG 774 ==
LOC: YASAS 10:15 → Y3N 19:03
PROVIDERS: ADMIT Allergy & Immunology; ATTEND Allergy & Immunology
PROC: HZ2ZZZZ Detoxification Services for Substance Abuse Treatment (ICD-10-PCS; principal; 2020-05-13)
DX: F10.230 Alcohol dependence with withdrawal, uncomplicated (principal); F14.20 Cocaine dependence, uncomplicated; F17.210 Nicotine dependence, cigarettes, uncomplicated; F19.24 Other psychoactive substance dependence with psychoactive substance-induced mood disorder; F19.282 Other psychoactive substance dependence with psychoactive substance-induced sleep disorder; E78.5 Hyperlipidemia, unspecified; D50.0 Iron deficiency anemia secondary to blood loss (chronic); J45.20 Mild intermittent asthma, uncomplicated; E05.90 Thyrotoxicosis, unspecified without thyrotoxic crisis or storm; K64.9 Unspecified hemorrhoids; R26.2 Difficulty in walking, not elsewhere classified; Z99.89 Dependence on other enabling machines and devices; Z86.19 Personal history of other infectious and parasitic diseases; Z91.018 Allergy to other foods; Z91.038 Other insect allergy status
CPT/HCPCS: 36415; 80053; 85027; 86593; 86780; C9803; U0003

== ENCOUNTER 2020-05-17 12:41 | Inpatient (IN) | payer OTHER ==
[2020-05-17] MEDS ORDERED: ACETAMINOPHEN 325 MG TABLET (FP) PO PRN (13:27)
[2020-05-17] MEDS ORDERED: MAG HYDROX/AL HYDROX/SIMETH 30 ML UNIT-DOSE CUP PO PRN (13:27)
[2020-05-17] MEDS ORDERED: hydrOXYzine PAMOATE 25 MG CAPSULE (FP) PO PRN (13:27)
[2020-05-17] MEDS ORDERED: MAGNESIUM CITRATE 300 ML BOTTLE PO PRN (13:27)
[2020-05-17] MEDS ORDERED: P-EPHED 60MG/TRIPROLIDI 2.5MG TABLET PO PRN (13:27)
[2020-05-17] MEDS ORDERED: guaiFENesin 200 MG/10 ML 10 ML UNIT-DOSE CUPS PO PRN (13:27)
[2020-05-17] MEDS ORDERED: MAGNESIUM HYDROX 2400MG/30ML ORAL SUSPENSION 30 ML CUP PO PRN (13:27)
[2020-05-17] MEDS ORDERED: LOPERAMIDE HCL 2 MG CAPSULE PO PRN (13:27)
[2020-05-17] MEDS ORDERED: NICOTINE POLACRILEX 2 MG GUM BUC PRN (13:27)
[2020-05-17] MEDS ORDERED: MENTHOL/PHENOL 1 EACH UD MM PRN (13:27)
[2020-05-17] MEDS ORDERED: ALBUTEROL SO4 HFA INHALER IH PRN (13:28)
[2020-05-17] MEDS ORDERED: BENZOCAINE 28 GM HEMORRHOIDAL OINTMENT RC PRN (13:33)
[2020-05-17] MEDS ORDERED: PT OWN MED DRAWER 7, Y5N ONE ×2 (15:54→21:11)
[2020-05-17] MEDS: MELATONIN 5 MG TABLETS PO SCH (21:07)
[2020-05-17] MEDS: THIAMINE HCL 100 MG TABLET (FP) PO SCH (21:07)
[2020-05-17] MEDS: traZODone HCL 50 MG TABLET (FP) PO SCH (21:08)
[2020-05-17] MEDS: HYDROCORTISONE 1% TOPICAL OINT 30 GM TUBE TP SCH (21:10)
[2020-05-18] MEDS: PRENATAL VITAMINS W/ FOLIC ACID TABLET (FP) PO SCH (09:46)
[2020-05-18] MEDS: HYDROCORTISONE 1% TOPICAL OINT 30 GM TUBE TP SCH ×2 (09:46→21:03)
[2020-05-18] MEDS: IBUPROFEN 400 MG TABLET (FP) PO PRN (09:48)
[2020-05-18] MEDS ORDERED: NICOTINE 7 MG/24 HOURS TOPICAL PATCH TD SCH (10:00)
[2020-05-18] MEDS: THIAMINE HCL 100 MG TABLET (FP) PO SCH (21:04)
[2020-05-18] MEDS: MELATONIN 5 MG TABLETS PO SCH (21:04)
[2020-05-18] MEDS: traZODone HCL 50 MG TABLET (FP) PO SCH (21:04)
[2020-05-19 06:46] VITALS: TEMP 97.8
[2020-05-19] MEDS: PRENATAL VITAMINS W/ FOLIC ACID TABLET (FP) PO SCH (09:04)
[2020-05-19] MEDS: HYDROCORTISONE 1% TOPICAL OINT 30 GM TUBE TP SCH (09:05)
[2020-05-19] MEDS ORDERED: AMOXICILLIN 500 MG CAPSULE (FP) PO ONE (10:00)
[2020-05-19] MEDS: IBUPROFEN 400 MG TABLET (FP) PO PRN (13:45)
[2020-05-19] MEDS ORDERED: AMOXICILLIN 500 MG CAPSULE (FP) PO SCH (14:00)
[2020-05-19 18:00] VITALS: BP 156/90; PULSE 93
== END 2020-05-19 17:48 | disposition left against medical advice (07) | DRG 770 ==
LOC: YASAS 12:41 → Y3E 12:44
PROVIDERS: ADMIT Allergy & Immunology; ATTEND Allergy & Immunology
PROC: HZ42ZZZ Group Counseling for Substance Abuse Treatment, Cognitive-Behavioral (ICD-10-PCS; principal; 2020-05-17)
DX: F10.20 Alcohol dependence, uncomplicated (principal); F14.20 Cocaine dependence, uncomplicated; F17.210 Nicotine dependence, cigarettes, uncomplicated; E78.5 Hyperlipidemia, unspecified; K64.9 Unspecified hemorrhoids; R26.2 Difficulty in walking, not elsewhere classified; Z99.89 Dependence on other enabling machines and devices; Z86.19 Personal history of other infectious and parasitic diseases; Z91.018 Allergy to other foods; Z91.038 Other insect allergy status
CPT/HCPCS: 71046-TC-FY

== ENCOUNTER 2020-11-07 16:04 | Inpatient (IN) | payer OTHER ==
[2020-11-07] MEDS ORDERED: MAG HYDROX/AL HYDROX/SIMETH 30 ML UNIT-DOSE CUP PO PRN (17:47)
[2020-11-07] MEDS ORDERED: MAGNESIUM HYDROX 2400MG/30ML ORAL SUSPENSION 30 ML CUP PO PRN (17:47)
[2020-11-07] MEDS ORDERED: MAGNESIUM CITRATE 300 ML BOTTLE PO PRN (17:47)
[2020-11-07] MEDS ORDERED: ACETAMINOPHEN 325 MG TABLET (FP) PO PRN ×2 (17:47)
[2020-11-07] MEDS ORDERED: METHOCARBAMOL 500 MG TABLET PO PRN (17:47)
[2020-11-07] MEDS ORDERED: IBUPROFEN 400 MG TABLET (FP) PO PRN (17:47)
[2020-11-07] MEDS ORDERED: ONDANSETRON *ODT* 4 MG TABLET SL PRN (17:47)
[2020-11-07] MEDS ORDERED: BISMUTH SUBSALICYLATE 524 MG/30 ML PO PRN (17:47)
[2020-11-07] MEDS ORDERED: NICOTINE POLACRILEX 2 MG GUM BUC PRN (17:47)
[2020-11-07] MEDS ORDERED: hydrOXYzine PAMOATE 25 MG CAPSULE (FP) PO PRN (17:47)
[2020-11-07] MEDS ORDERED: MENTHOL/PHENOL 1 EACH UD MM PRN (17:47)
[2020-11-07 18:01] VITALS: BMI 21.4
[2020-11-07] MEDS ORDERED: MELATONIN 5 MG TABLETS PO SCH (22:00)
[2020-11-07] MEDS ORDERED: THIAMINE HCL 100 MG TABLET (FP) PO SCH (22:00)
[2020-11-08 08:44] VITALS: TEMP 97.2
[2020-11-08] MEDS ORDERED: PRENATAL VITAMINS W/ FOLIC ACID TABLET (FP) PO SCH (10:00)
[2020-11-08 12:52] VITALS: BP 102/72; PULSE 66
== END 2020-11-08 13:58 | disposition home or self-care (01) | DRG 774 ==
LOC: YASAS 16:04 → Y3N 18:47
PROVIDERS: ADMIT Allergy & Immunology; ATTEND Allergy & Immunology
PROC: HZ2ZZZZ Detoxification Services for Substance Abuse Treatment (ICD-10-PCS; principal; 2020-11-07)
DX: F10.230 Alcohol dependence with withdrawal, uncomplicated (principal); F14.20 Cocaine dependence, uncomplicated; F17.210 Nicotine dependence, cigarettes, uncomplicated; F19.282 Other psychoactive substance dependence with psychoactive substance-induced sleep disorder; F19.24 Other psychoactive substance dependence with psychoactive substance-induced mood disorder; F39 Unspecified mood [affective] disorder; E78.00 Pure hypercholesterolemia, unspecified; E05.90 Thyrotoxicosis, unspecified without thyrotoxic crisis or storm; E63.8 Other specified nutritional deficiencies; R45.89 Other symptoms and signs involving emotional state; Z59.0 Homelessness
CPT/HCPCS: C9803; U0003; U0005

== ENCOUNTER 2021-02-13 10:07 | Inpatient (IN) | payer OTHER ==
[2021-02-13 11:58] VITALS: BMI 20.1
[2021-02-13] MEDS ORDERED: METHOCARBAMOL 500 MG TABLET PO PRN (13:09)
[2021-02-13] MEDS ORDERED: MAGNESIUM CITRATE 300 ML BOTTLE PO PRN (13:09)
[2021-02-13] MEDS ORDERED: ACETAMINOPHEN 325 MG TABLET (FP) PO PRN (13:09)
[2021-02-13] MEDS ORDERED: BISMUTH SUBSALICYLATE 524 MG/30 ML PO PRN (13:09)
[2021-02-13] MEDS ORDERED: MAG HYDROX/AL HYDROX/SIMETH 30 ML UNIT-DOSE CUP PO PRN (13:09)
[2021-02-13] MEDS ORDERED: hydrOXYzine PAMOATE 25 MG CAPSULE (FP) PO PRN (13:09)
[2021-02-13] MEDS ORDERED: MENTHOL/PHENOL 1 EACH UD MM PRN (13:09)
[2021-02-13] MEDS ORDERED: NICOTINE 10 MG CARTRIDGE (INHALER) IH PRN (13:09)
[2021-02-13] MEDS ORDERED: IBUPROFEN 400 MG TABLET (FP) PO PRN (13:09)
[2021-02-13] MEDS ORDERED: MAGNESIUM HYDROX 2400MG/30ML ORAL SUSPENSION 30 ML CUP PO PRN (13:09)
[2021-02-13] MEDS ORDERED: ONDANSETRON *ODT* 4 MG TABLET SL PRN (13:09)
[2021-02-13] MEDS ORDERED: NICOTINE POLACRILEX 4 MG GUM BUC PRN (13:09)
[2021-02-13] MEDS ORDERED: MECLIZINE HCL 12.5 MG TABLET PO PRN (13:11)
[2021-02-13] MEDS: diazePAM 5 MG TABLET PO PRN (14:07)
[2021-02-13] MEDS: ACETAMINOPHEN 325 MG TABLET (FP) PO PRN (14:07)
[2021-02-13 16:20] LABS: HEMATOCRIT 37.4 % (32.4-45.2); MCHC 34.8 g/dl (32.0-36.0); MEAN CELL VOLUME 97.7 fl (80-96); PLATELET COUNT 287 10^3/uL (134-434); RBC 3.83 M/mm3 (3.60-5.2); WHITE BLOOD COUNT 4.2 K/mm3 (4.0-10.0)
[2021-02-13 16:28] LABS: ALBUMIN 3.6 g/dl (3.4-5.0); CALCIUM 8.9 mg/dL (8.5-10.1)
[2021-02-13 16:32] LABS: CREATININE 1.1 mg/dL (0.55-1.3)
[2021-02-13 16:34] LABS: BILIRUBIN,TOTAL 0.6 mg/dL (0.2-1)
[2021-02-13 17:21] LABS: HIV INTERPRETATION NEGATIVE (NEGATIVE)
[2021-02-13] MEDS: diazePAM 5 MG TABLET PO SCH ×2 (17:39→22:11)
[2021-02-13] MEDS ORDERED: MELATONIN 5 MG TABLETS PO SCH (22:00)
[2021-02-13] MEDS: traZODone HCL 50 MG TABLET (FP) PO SCH (22:11)
[2021-02-13] MEDS: THIAMINE HCL 100 MG TABLET (FP) PO SCH (22:11)
[2021-02-14] MEDS: diazePAM 5 MG TABLET PO SCH ×4 (06:21→22:31)
[2021-02-14] MEDS ORDERED: ALBUTEROL SO4 HFA INHALER IH PRN (08:01)
[2021-02-14] MEDS: PRENATAL VITAMINS W/ FOLIC ACID TABLET (FP) PO SCH (10:34)
[2021-02-14] MEDS: ACETAMINOPHEN 325 MG TABLET (FP) PO PRN (17:56)
[2021-02-14] MEDS: THIAMINE HCL 100 MG TABLET (FP) PO SCH (22:31)
[2021-02-14] MEDS: traZODone HCL 50 MG TABLET (FP) PO SCH (22:31)
[2021-02-15] MEDS: diazePAM 5 MG TABLET PO SCH ×2 (06:14→15:18)
[2021-02-15] MEDS: PRENATAL VITAMINS W/ FOLIC ACID TABLET (FP) PO SCH (10:32)
[2021-02-15] MEDS: diazePAM 5 MG TABLET PO PRN (10:32)
[2021-02-15 13:40] VITALS: BP 118/77; PULSE 76; TEMP 98.2
[2021-02-16] MEDS ORDERED: diazePAM 5 MG TABLET PO SCH (06:00)
[2021-02-17] MEDS ORDERED: diazePAM 5 MG TABLET PO ONE (06:00)
== END 2021-02-15 18:04 | disposition left against medical advice (07) | DRG 770 ==
LOC: YASAS 10:07 → Y3N 12:46
PROVIDERS: ADMIT Allergy & Immunology; ATTEND Allergy & Immunology
PROC: HZ2ZZZZ Detoxification Services for Substance Abuse Treatment (ICD-10-PCS; principal; 2021-02-13)
DX: F10.230 Alcohol dependence with withdrawal, uncomplicated (principal); F14.20 Cocaine dependence, uncomplicated; F17.210 Nicotine dependence, cigarettes, uncomplicated; F19.282 Other psychoactive substance dependence with psychoactive substance-induced sleep disorder; F32.9 Major depressive disorder, single episode, unspecified; D50.0 Iron deficiency anemia secondary to blood loss (chronic); E78.5 Hyperlipidemia, unspecified; E05.90 Thyrotoxicosis, unspecified without thyrotoxic crisis or storm; M12.9 Arthropathy, unspecified; Z86.19 Personal history of other infectious and parasitic diseases; Z56.0 Unemployment, unspecified; Z59.0 Homelessness
CPT/HCPCS: 36415; 80053; 85027; 86593; 86780; 87389; C9803; U0003; U0005

== ENCOUNTER 2021-03-20 12:16 | Inpatient (IN) | payer OTHER ==
[2021-03-20 16:00] VITALS: BMI 18.6
[2021-03-20] MEDS ORDERED: MAGNESIUM CITRATE 300 ML BOTTLE PO PRN (17:10)
[2021-03-20] MEDS ORDERED: BISMUTH SUBSALICYLATE 524 MG/30 ML PO PRN (17:10)
[2021-03-20] MEDS ORDERED: METHOCARBAMOL 500 MG TABLET PO PRN (17:10)
[2021-03-20] MEDS ORDERED: ONDANSETRON *ODT* 4 MG TABLET SL PRN (17:10)
[2021-03-20] MEDS ORDERED: MENTHOL/PHENOL 1 EACH UD MM PRN (17:10)
[2021-03-20] MEDS ORDERED: MAGNESIUM HYDROX 2400MG/30ML ORAL SUSPENSION 30 ML CUP PO PRN (17:10)
[2021-03-20] MEDS ORDERED: MAG HYDROX/AL HYDROX/SIMETH 30 ML UNIT-DOSE CUP PO PRN (17:10)
[2021-03-20] MEDS ORDERED: hydrOXYzine PAMOATE 25 MG CAPSULE (FP) PO PRN (17:10)
[2021-03-20] MEDS ORDERED: IBUPROFEN 400 MG TABLET (FP) PO PRN (17:10)
[2021-03-20] MEDS ORDERED: ACETAMINOPHEN 325 MG TABLET (FP) PO PRN (17:10)
[2021-03-20] MEDS ORDERED: METHOCARBAMOL 500 MG TABLET ONE (18:13)
[2021-03-20] MEDS ORDERED: ACETAMINOPHEN 325 MG TABLET (FP) ONE (18:13)
[2021-03-20] MEDS: ACETAMINOPHEN 325 MG TABLET (FP) PO PRN (18:17)
[2021-03-20] MEDS ORDERED: THIAMINE HCL 100 MG TABLET (FP) PO SCH (22:00)
[2021-03-20] MEDS ORDERED: MELATONIN 5 MG TABLETS PO SCH (22:00)
[2021-03-21] MEDS: ACETAMINOPHEN 325 MG TABLET (FP) PO PRN (08:54)
[2021-03-21 09:25] VITALS: TEMP 97.8
[2021-03-21] MEDS ORDERED: PRENATAL VITAMINS W/ FOLIC ACID TABLET (FP) PO SCH (10:00)
[2021-03-21 13:04] VITALS: BP 126/69; PULSE 58
== END 2021-03-21 15:00 | disposition other institution (70) | DRG 774 ==
LOC: YASAS 12:16 → Y6N 17:33 → UNDOADMIN 17:33 → Y6N 21:01
PROVIDERS: ADMIT Allergy & Immunology; ATTEND Allergy & Immunology
PROC: HZ2ZZZZ Detoxification Services for Substance Abuse Treatment (ICD-10-PCS; principal; 2021-03-20)
DX: F10.230 Alcohol dependence with withdrawal, uncomplicated (principal); F14.20 Cocaine dependence, uncomplicated; F17.213 Nicotine dependence, cigarettes, with withdrawal; F34.1 Dysthymic disorder; Z86.19 Personal history of other infectious and parasitic diseases; Z91.018 Allergy to other foods; Z91.038 Other insect allergy status; Z59.00 Homelessness unspecified
CPT/HCPCS: C9803; U0003; U0005

== ENCOUNTER 2021-03-21 15:11 | Inpatient (IN) | payer OTHER ==
[~2021-03-21 15:11] MED LIST changes: -MENTHOL/PHENOL 1 EACH UD MM PRN; +NICOTINE 10 MG CARTRIDGE (INHALER) IH PRN; -NICOTINE 14 MG/24 HOURS TOPICAL PATCH TD PRN; +guaiFENesin 200 MG/10 ML 10 ML UNIT-DOSE CUPS PO PRN
[2021-03-21] MEDS: ACETAMINOPHEN 325 MG TABLET (FP) PO PRN (17:34)
[2021-03-21] MEDS: hydrOXYzine PAMOATE 25 MG CAPSULE (FP) PO PRN (17:34)
[2021-03-21] MEDS ORDERED: PNEUMOC 13-VAL CONJ-DIP CRM/PF 0.5 ML DISP.SYRIN IM ONE (18:49)
[2021-03-21] MEDS: THIAMINE HCL 100 MG TABLET (FP) PO SCH (21:08)
[2021-03-21] MEDS: MELATONIN 5 MG TABLETS PO SCH (21:08)
[2021-03-22] MEDS: PRENATAL VITAMINS W/ FOLIC ACID TABLET (FP) PO SCH (10:41)
[2021-03-22] MEDS: NICOTINE 7 MG/24 HOURS TOPICAL PATCH TD SCH (10:41)
[2021-03-22] MEDS ORDERED: PNEUMOCOCCAL 23 VACCINE 0.5 ML VIAL IM ONE (12:00)
[2021-03-22] MEDS ORDERED: FLU VACC QS2021-22(6MOS UP)/PF 60 MCG/0.5 ML SYRINGE IM ONE (12:00)
[2021-03-22] MEDS: ACETAMINOPHEN 325 MG TABLET (FP) PO PRN (18:26)
[2021-03-22] MEDS: hydrOXYzine PAMOATE 25 MG CAPSULE (FP) PO PRN (21:01)
[2021-03-22] MEDS: THIAMINE HCL 100 MG TABLET (FP) PO SCH (21:01)
[2021-03-22] MEDS: MELATONIN 5 MG TABLETS PO SCH (21:01)
[2021-03-23] MEDS: NICOTINE POLACRILEX 2 MG GUM BUC PRN (10:45)
[2021-03-23] MEDS: NICOTINE 7 MG/24 HOURS TOPICAL PATCH TD SCH (10:45)
[2021-03-23] MEDS: ACETAMINOPHEN 325 MG TABLET (FP) PO PRN ×2 (10:45→22:24)
[2021-03-23] MEDS: PRENATAL VITAMINS W/ FOLIC ACID TABLET (FP) PO SCH (10:45)
[2021-03-23] MEDS: THIAMINE HCL 100 MG TABLET (FP) PO SCH (22:23)
[2021-03-23] MEDS: traZODone HCL 50 MG TABLET (FP) PO SCH (22:23)
[2021-03-24] MEDS: PRENATAL VITAMINS W/ FOLIC ACID TABLET (FP) PO SCH (10:51)
[2021-03-24] MEDS: NICOTINE POLACRILEX 2 MG GUM BUC PRN (10:51)
[2021-03-24] MEDS: NICOTINE 7 MG/24 HOURS TOPICAL PATCH TD SCH (10:51)
[2021-03-24] MEDS: ACETAMINOPHEN 325 MG TABLET (FP) PO PRN ×2 (10:52→22:01)
[2021-03-24] MEDS: traZODone HCL 50 MG TABLET (FP) PO SCH (22:01)
[2021-03-24] MEDS: THIAMINE HCL 100 MG TABLET (FP) PO SCH (22:01)
[2021-03-25] MEDS: ACETAMINOPHEN 325 MG TABLET (FP) PO PRN (10:15)
[2021-03-25] MEDS: NICOTINE POLACRILEX 2 MG GUM BUC PRN (10:15)
[2021-03-25] MEDS: PRENATAL VITAMINS W/ FOLIC ACID TABLET (FP) PO SCH (10:15)
[2021-03-25] MEDS: NICOTINE 7 MG/24 HOURS TOPICAL PATCH TD SCH (10:15)
[2021-03-25] MEDS: traZODone HCL 50 MG TABLET (FP) PO SCH (21:11)
[2021-03-25] MEDS: THIAMINE HCL 100 MG TABLET (FP) PO SCH (21:11)
[2021-03-26] MEDS: PRENATAL VITAMINS W/ FOLIC ACID TABLET (FP) PO SCH (10:13)
[2021-03-26] MEDS: NICOTINE 7 MG/24 HOURS TOPICAL PATCH TD SCH (10:14)
[2021-03-26] MEDS: NICOTINE POLACRILEX 2 MG GUM BUC PRN (10:14)
[2021-03-26] MEDS: ACETAMINOPHEN 325 MG TABLET (FP) PO PRN (10:16)
[2021-03-26] MEDS: traZODone HCL 50 MG TABLET (FP) PO SCH (22:15)
[2021-03-26] MEDS: hydrOXYzine PAMOATE 25 MG CAPSULE (FP) PO PRN (22:15)
[2021-03-26] MEDS: THIAMINE HCL 100 MG TABLET (FP) PO SCH (22:15)
[2021-03-27] MEDS: NICOTINE 7 MG/24 HOURS TOPICAL PATCH TD SCH (10:42)
[2021-03-27] MEDS: PRENATAL VITAMINS W/ FOLIC ACID TABLET (FP) PO SCH (10:42)
[2021-03-27] MEDS: hydrOXYzine PAMOATE 25 MG CAPSULE (FP) PO PRN ×2 (10:42→21:09)
[2021-03-27] MEDS: NICOTINE POLACRILEX 2 MG GUM BUC PRN (10:43)
[2021-03-27] MEDS ORDERED: diphenhydrAMINE HCL 25 MG CAPSULE (FP) PO ONE (11:35)
[2021-03-27] MEDS: THIAMINE HCL 100 MG TABLET (FP) PO SCH (21:09)
[2021-03-27] MEDS: traZODone HCL 50 MG TABLET (FP) PO SCH (21:09)
[2021-03-28] MEDS: PRENATAL VITAMINS W/ FOLIC ACID TABLET (FP) PO SCH (10:13)
[2021-03-28] MEDS: NICOTINE POLACRILEX 2 MG GUM BUC PRN (10:14)
[2021-03-28] MEDS: NICOTINE 7 MG/24 HOURS TOPICAL PATCH TD SCH (10:14)
[2021-03-28] MEDS ORDERED: PT OWN MED DRAWER 7, Y5N ONE (10:47)
[2021-03-28] MEDS: traZODone HCL 50 MG TABLET (FP) PO SCH (21:11)
[2021-03-28] MEDS: ACETAMINOPHEN 325 MG TABLET (FP) PO PRN (21:11)
[2021-03-28] MEDS: THIAMINE HCL 100 MG TABLET (FP) PO SCH (21:11)
[2021-03-28] MEDS: hydrOXYzine PAMOATE 25 MG CAPSULE (FP) PO PRN (21:11)
[2021-03-29] MEDS: NICOTINE 7 MG/24 HOURS TOPICAL PATCH TD SCH (10:39)
[2021-03-29] MEDS: NICOTINE POLACRILEX 2 MG GUM BUC PRN ×2 (10:39→18:00)
[2021-03-29] MEDS: PRENATAL VITAMINS W/ FOLIC ACID TABLET (FP) PO SCH (10:39)
[2021-03-29] MEDS: TETRAHYDROZOLINE HCL EYE DROPS OU PRN ×2 (10:40→18:00)
[2021-03-29] MEDS: ACETAMINOPHEN 325 MG TABLET (FP) PO PRN (12:31)
[2021-03-29] MEDS: THIAMINE HCL 100 MG TABLET (FP) PO SCH (22:11)
[2021-03-29] MEDS: traZODone HCL 50 MG TABLET (FP) PO SCH (22:11)
[2021-03-29] MEDS: hydrOXYzine PAMOATE 25 MG CAPSULE (FP) PO PRN (22:11)
[2021-03-29] MEDS ORDERED: MELATONIN 5 MG TABLETS PO ONE (23:40)
[2021-03-29] MEDS ORDERED: TUBERCULIN PPD 5 TU/0.1ML VIAL ID ONE (23:58)
[2021-03-30] MEDS: NICOTINE POLACRILEX 2 MG GUM BUC PRN ×2 (10:15→17:47)
[2021-03-30] MEDS: PRENATAL VITAMINS W/ FOLIC ACID TABLET (FP) PO SCH (10:15)
[2021-03-30] MEDS: NICOTINE 7 MG/24 HOURS TOPICAL PATCH TD SCH (10:15)
[2021-03-30] MEDS: TETRAHYDROZOLINE HCL EYE DROPS OU PRN ×2 (17:46→21:01)
[2021-03-30] MEDS: MELATONIN 5 MG TABLETS PO SCH (21:00)
[2021-03-30] MEDS: THIAMINE HCL 100 MG TABLET (FP) PO SCH (21:00)
[2021-03-30] MEDS: traZODone HCL 50 MG TABLET (FP) PO SCH (21:00)
[2021-03-31] MEDS: IBUPROFEN 400 MG TABLET (FP) PO PRN (06:41)
[2021-03-31] MEDS: PRENATAL VITAMINS W/ FOLIC ACID TABLET (FP) PO SCH (10:36)
[2021-03-31] MEDS: NICOTINE 7 MG/24 HOURS TOPICAL PATCH TD SCH (10:36)
[2021-03-31] MEDS: NICOTINE POLACRILEX 2 MG GUM BUC PRN ×2 (10:37→13:34)
[2021-03-31] MEDS: TETRAHYDROZOLINE HCL EYE DROPS OU PRN (10:38)
[2021-03-31] MEDS: MELATONIN 5 MG TABLETS PO SCH (21:41)
[2021-03-31] MEDS: traZODone HCL 50 MG TABLET (FP) PO SCH (21:41)
[2021-03-31] MEDS: THIAMINE HCL 100 MG TABLET (FP) PO SCH (21:41)
[2021-03-31] MEDS: hydrOXYzine PAMOATE 25 MG CAPSULE (FP) PO PRN (21:41)
[2021-04-01] MEDS: IBUPROFEN 400 MG TABLET (FP) PO PRN (07:23)
[2021-04-01] MEDS: TETRAHYDROZOLINE HCL EYE DROPS OU PRN (10:26)
[2021-04-01] MEDS: PRENATAL VITAMINS W/ FOLIC ACID TABLET (FP) PO SCH (10:26)
[2021-04-01] MEDS: NICOTINE 7 MG/24 HOURS TOPICAL PATCH TD SCH (10:26)
[2021-04-01] MEDS: NICOTINE POLACRILEX 2 MG GUM BUC PRN (10:26)
[2021-04-01] MEDS: ACETAMINOPHEN 325 MG TABLET (FP) PO PRN (13:08)
[2021-04-01] MEDS: hydrOXYzine PAMOATE 25 MG CAPSULE (FP) PO PRN ×2 (13:08→21:12)
[2021-04-01] MEDS: traZODone HCL 50 MG TABLET (FP) PO SCH (21:12)
[2021-04-01] MEDS: MELATONIN 5 MG TABLETS PO SCH (21:12)
[2021-04-01] MEDS: THIAMINE HCL 100 MG TABLET (FP) PO SCH (21:12)
[2021-04-02] MEDS: NICOTINE POLACRILEX 2 MG GUM BUC PRN (10:29)
[2021-04-02] MEDS: PRENATAL VITAMINS W/ FOLIC ACID TABLET (FP) PO SCH (10:29)
[2021-04-02] MEDS: NICOTINE 7 MG/24 HOURS TOPICAL PATCH TD SCH (10:29)
[2021-04-02] MEDS: ACETAMINOPHEN 325 MG TABLET (FP) PO PRN (10:31)
[2021-04-02] MEDS: P-EPHED 60MG/TRIPROLIDI 2.5MG TABLET PO PRN ×2 (10:31→22:41)
[2021-04-02] MEDS: hydrOXYzine PAMOATE 25 MG CAPSULE (FP) PO PRN ×2 (10:33→21:05)
[2021-04-02] MEDS: MELATONIN 5 MG TABLETS PO SCH (21:05)
[2021-04-02] MEDS: THIAMINE HCL 100 MG TABLET (FP) PO SCH (21:05)
[2021-04-02] MEDS: traZODone HCL 50 MG TABLET (FP) PO SCH (21:05)
[2021-04-02] MEDS: TETRAHYDROZOLINE HCL EYE DROPS OU PRN (21:06)
[2021-04-03] MEDS: P-EPHED 60MG/TRIPROLIDI 2.5MG TABLET PO PRN (06:38)
[2021-04-03] MEDS: PRENATAL VITAMINS W/ FOLIC ACID TABLET (FP) PO SCH (10:30)
[2021-04-03] MEDS: NICOTINE 7 MG/24 HOURS TOPICAL PATCH TD SCH (10:31)
[2021-04-03] MEDS: IBUPROFEN 400 MG TABLET (FP) PO PRN (10:32)
[2021-04-03] MEDS: hydrOXYzine PAMOATE 25 MG CAPSULE (FP) PO PRN ×2 (10:33→21:03)
[2021-04-03] MEDS: NICOTINE POLACRILEX 2 MG GUM BUC PRN (10:34)
[2021-04-03] MEDS: traZODone HCL 50 MG TABLET (FP) PO SCH (21:03)
[2021-04-03] MEDS: MELATONIN 5 MG TABLETS PO SCH (21:03)
[2021-04-03] MEDS: THIAMINE HCL 100 MG TABLET (FP) PO SCH (21:03)
[2021-04-04 07:41] VITALS: BP 103/66; PULSE 62; TEMP 97.3
[2021-04-04] MEDS: PRENATAL VITAMINS W/ FOLIC ACID TABLET (FP) PO SCH (09:40)
[2021-04-04] MEDS: hydrOXYzine PAMOATE 25 MG CAPSULE (FP) PO PRN (09:41)
[2021-04-04] MEDS: NICOTINE 7 MG/24 HOURS TOPICAL PATCH TD SCH (10:40)
== END 2021-04-04 09:55 | disposition home or self-care (01) | DRG 772 ==
LOC: YASAS 15:11 → Y5N 15:12
PROVIDERS: ADMIT Allergy & Immunology; ATTEND Allergy & Immunology
PROC: HZ42ZZZ Group Counseling for Substance Abuse Treatment, Cognitive-Behavioral (ICD-10-PCS; principal; 2021-03-21)
DX: F10.20 Alcohol dependence, uncomplicated (principal); F14.20 Cocaine dependence, uncomplicated; F17.210 Nicotine dependence, cigarettes, uncomplicated; F19.282 Other psychoactive substance dependence with psychoactive substance-induced sleep disorder; F19.24 Other psychoactive substance dependence with psychoactive substance-induced mood disorder; F32.A Depression, unspecified; D64.9 Anemia, unspecified; E05.90 Thyrotoxicosis, unspecified without thyrotoxic crisis or storm; H57.89 Other specified disorders of eye and adnexa; J45.909 Unspecified asthma, uncomplicated; L29.8 Other pruritus; M12.9 Arthropathy, unspecified; Z86.19 Personal history of other infectious and parasitic diseases; Z56.0 Unemployment, unspecified; Z59.00 Homelessness unspecified
CPT/HCPCS: 90686; 90732; G0008; G0009

== ENCOUNTER 2021-07-23 08:13 | Inpatient (IN) | payer OTHER ==
[2021-07-23 09:25] VITALS: BMI 22.6
[2021-07-23] MEDS ORDERED: IBUPROFEN 400 MG TABLET (FP) PO PRN (09:56)
[2021-07-23] MEDS ORDERED: ACETAMINOPHEN 325 MG TABLET (FP) PO PRN (09:56)
[2021-07-23] MEDS ORDERED: METHOCARBAMOL 500 MG TABLET PO PRN (09:56)
[2021-07-23] MEDS ORDERED: MENTHOL/PHENOL 1 EACH UD MM PRN (09:56)
[2021-07-23] MEDS ORDERED: MAG HYDROX/AL HYDROX/SIMETH 30 ML UNIT-DOSE CUP PO PRN (09:56)
[2021-07-23] MEDS ORDERED: MAGNESIUM CITRATE 300 ML BOTTLE PO PRN (09:56)
[2021-07-23] MEDS ORDERED: diazePAM 5 MG TABLET PO PRN (09:56)
[2021-07-23] MEDS ORDERED: ONDANSETRON *ODT* 4 MG TABLET SL PRN (09:56)
[2021-07-23] MEDS ORDERED: LOPERAMIDE HCL 2 MG CAPSULE PO PRN (09:56)
[2021-07-23] MEDS ORDERED: NICOTINE 10 MG CARTRIDGE (INHALER) IH PRN (09:56)
[2021-07-23] MEDS ORDERED: MAGNESIUM HYDROX 2400MG/30ML ORAL SUSPENSION 30 ML CUP PO PRN (09:56)
[2021-07-23] MEDS ORDERED: BISMUTH SUBSALICYLATE 524 MG/30 ML PO PRN (09:56)
[2021-07-23] MEDS: NICOTINE 14 MG/24 HOURS TOPICAL PATCH TD SCH (11:42)
[2021-07-23] MEDS: PRENATAL VITAMINS W/ FOLIC ACID TABLET (FP) PO SCH (11:42)
[2021-07-23] MEDS: hydrOXYzine PAMOATE 25 MG CAPSULE (FP) PO SCH ×4 (11:45→22:27)
[2021-07-23] MEDS: diazePAM 5 MG TABLET PO SCH ×3 (11:45→22:27)
[2021-07-23 16:39] LABS: HEMATOCRIT 33.5 % (32.4-45.2); HEMOGLOBIN 11.7 GM/dL (10.7-15.3); MCH 32.4 pg (25.7-33.7); MEAN CELL VOLUME 92.5 fl (80-96); MEAN PLT VOLUME 7.1 fl (7.5-11.1); PLATELET COUNT 315 10^3/uL (134-434); RBC 3.62 M/mm3 (3.60-5.2); RDW 12.9 % (11.6-15.6); WHITE BLOOD COUNT 5.7 K/mm3 (4.0-10.0)
[2021-07-23 16:44] LABS: CALCIUM 9.1 mg/dL (8.5-10.1)
[2021-07-23 16:45] LABS: ALBUMIN 3.9 g/dl (3.4-5.0); BLOOD UREA NITROGEN 18.1 mg/dL (7-18)
[2021-07-23 16:49] LABS: BILIRUBIN,TOTAL 0.7 mg/dL (0.2-1); TOT PROT 7.1 g/dl (6.4-8.2)
[2021-07-23] MEDS ORDERED: traZODone HCL 50 MG TABLET (FP) PO SCH (22:00)
[2021-07-23] MEDS: THIAMINE HCL 100 MG TABLET (FP) PO SCH (22:27)
[2021-07-23] MEDS: MELATONIN 5 MG TABLETS PO SCH (22:27)
[2021-07-23] MEDS: ACETAMINOPHEN 325 MG TABLET (FP) PO PRN (22:27)
[2021-07-24] MEDS: diazePAM 5 MG TABLET PO SCH ×4 (06:58→22:49)
[2021-07-24] MEDS: hydrOXYzine PAMOATE 25 MG CAPSULE (FP) PO SCH ×5 (06:58→22:48)
[2021-07-24] MEDS: PRENATAL VITAMINS W/ FOLIC ACID TABLET (FP) PO SCH (09:52)
[2021-07-24] MEDS: NICOTINE 14 MG/24 HOURS TOPICAL PATCH TD SCH (09:53)
[2021-07-24] MEDS ORDERED: cloNIDine HCL 0.1 MG TABLET PO PRN (09:53)
[2021-07-24] MEDS: THIAMINE HCL 100 MG TABLET (FP) PO SCH (22:48)
[2021-07-24] MEDS: MELATONIN 5 MG TABLETS PO SCH (22:48)
[2021-07-25] MEDS: diazePAM 5 MG TABLET PO SCH ×3 (05:48→22:41)
[2021-07-25] MEDS: hydrOXYzine PAMOATE 25 MG CAPSULE (FP) PO SCH ×5 (05:48→22:41)
[2021-07-25] MEDS: ACETAMINOPHEN 325 MG TABLET (FP) PO PRN ×2 (05:49→22:42)
[2021-07-25 08:10] LABS: SARS-CoV-2 NAA Not Detected (Not Detected)
[2021-07-25] MEDS: PRENATAL VITAMINS W/ FOLIC ACID TABLET (FP) PO SCH (09:50)
[2021-07-25] MEDS: NICOTINE 14 MG/24 HOURS TOPICAL PATCH TD SCH (09:52)
[2021-07-25] MEDS: THIAMINE HCL 100 MG TABLET (FP) PO SCH (22:40)
[2021-07-25] MEDS: MELATONIN 5 MG TABLETS PO SCH (22:41)
[2021-07-26] MEDS: hydrOXYzine PAMOATE 25 MG CAPSULE (FP) PO SCH ×5 (06:10→22:52)
[2021-07-26] MEDS: diazePAM 5 MG TABLET PO SCH ×2 (06:10→18:02)
[2021-07-26] MEDS: PRENATAL VITAMINS W/ FOLIC ACID TABLET (FP) PO SCH (10:37)
[2021-07-26] MEDS: NICOTINE 14 MG/24 HOURS TOPICAL PATCH TD SCH (12:34)
[2021-07-26] MEDS: MELATONIN 5 MG TABLETS PO SCH (22:44)
[2021-07-26] MEDS: THIAMINE HCL 100 MG TABLET (FP) PO SCH (22:44)
[2021-07-27] MEDS ORDERED: diazePAM 5 MG TABLET PO ONE (06:00)
[2021-07-27] MEDS: hydrOXYzine PAMOATE 25 MG CAPSULE (FP) PO SCH (06:18)
[2021-07-27 08:45] VITALS: BP 121/71; PULSE 80; TEMP 98.8
== END 2021-07-27 10:08 | disposition other institution (70) | DRG 774 ==
LOC: YASAS 08:13 → Y3N 10:05
PROVIDERS: ADMIT Allergy & Immunology; ATTEND Allergy & Immunology
PROC: HZ2ZZZZ Detoxification Services for Substance Abuse Treatment (ICD-10-PCS; principal; 2021-07-23)
DX: F10.230 Alcohol dependence with withdrawal, uncomplicated (principal); F14.20 Cocaine dependence, uncomplicated; F17.210 Nicotine dependence, cigarettes, uncomplicated; F19.24 Other psychoactive substance dependence with psychoactive substance-induced mood disorder; A53.0 Latent syphilis, unspecified as early or late; E05.90 Thyrotoxicosis, unspecified without thyrotoxic crisis or storm; E78.5 Hyperlipidemia, unspecified; G47.00 Insomnia, unspecified; J45.909 Unspecified asthma, uncomplicated; M19.90 Unspecified osteoarthritis, unspecified site; Z86.19 Personal history of other infectious and parasitic diseases
CPT/HCPCS: 36415; 80053; 85027; 86593; 86780; C9803; J0735; U0003; U0005

== ENCOUNTER 2021-08-22 06:12 | Inpatient (IN) | payer OTHER ==
[2021-08-22 09:29] VITALS: BMI 20.1
[2021-08-22] MEDS ORDERED: MAGNESIUM HYDROX 2400MG/30ML ORAL SUSPENSION 30 ML CUP PO PRN (09:42)
[2021-08-22] MEDS ORDERED: LOPERAMIDE HCL 2 MG CAPSULE PO PRN (09:42)
[2021-08-22] MEDS ORDERED: NICOTINE 10 MG CARTRIDGE (INHALER) IH PRN (09:42)
[2021-08-22] MEDS ORDERED: ACETAMINOPHEN 325 MG TABLET (FP) PO PRN ×2 (09:42)
[2021-08-22] MEDS ORDERED: MENTHOL/PHENOL 1 EACH UD MM PRN (09:42)
[2021-08-22] MEDS ORDERED: MAGNESIUM CITRATE 300 ML BOTTLE PO PRN (09:42)
[2021-08-22] MEDS ORDERED: diazePAM 5 MG TABLET PO PRN (09:42)
[2021-08-22] MEDS ORDERED: ONDANSETRON *ODT* 4 MG TABLET SL PRN (09:42)
[2021-08-22] MEDS ORDERED: BISMUTH SUBSALICYLATE 524 MG/30 ML PO PRN (09:42)
[2021-08-22] MEDS ORDERED: MAG HYDROX/AL HYDROX/SIMETH 30 ML UNIT-DOSE CUP PO PRN (09:42)
[2021-08-22] MEDS: PRENATAL VITAMINS W/ FOLIC ACID TABLET (FP) PO SCH (10:53)
[2021-08-22] MEDS: NICOTINE 14 MG/24 HOURS TOPICAL PATCH TD SCH (10:53)
[2021-08-22] MEDS: hydrOXYzine PAMOATE 25 MG CAPSULE (FP) PO SCH ×4 (10:54→22:45)
[2021-08-22] MEDS: diazePAM 5 MG TABLET PO SCH ×3 (10:54→22:45)
[2021-08-22] MEDS: IBUPROFEN 400 MG TABLET (FP) PO PRN (10:54)
[2021-08-22] MEDS: METHOCARBAMOL 500 MG TABLET PO PRN (10:54)
[2021-08-22] MEDS ORDERED: ALBUTEROL SO4 HFA INHALER IH PRN (14:49)
[2021-08-22 18:09] LABS: ALBUMIN 4.4 g/dl (3.4-5.0); CALCIUM 9.9 mg/dL (8.5-10.1)
[2021-08-22 18:10] LABS: BLOOD UREA NITROGEN 14.2 mg/dL (7-18)
[2021-08-22 18:12] LABS: CREATININE 1.1 mg/dL (0.55-1.3); TOT PROT 8.1 g/dl (6.4-8.2)
[2021-08-22 18:14] LABS: BILIRUBIN,TOTAL 0.8 mg/dL (0.2-1)
[2021-08-22 18:16] LABS: HEMATOCRIT 40.7 % (32.4-45.2); HEMOGLOBIN 13.8 GM/dL (10.7-15.3); MCH 32.3 pg (25.7-33.7); MCHC 33.9 g/dl (32.0-36.0); MEAN CELL VOLUME 95.3 fl (80-96); MEAN PLT VOLUME 8.4 fl (7.5-11.1); RBC 4.27 M/mm3 (3.60-5.2); RDW 14.6 % (11.6-15.6); WHITE BLOOD COUNT 4.7 K/mm3 (4.0-10.0)
[2021-08-22 19:02] LABS: PLATELET COUNT 248 10^3/uL (134-434)
[2021-08-22] MEDS: MELATONIN 5 MG TABLETS PO SCH (22:44)
[2021-08-22] MEDS: THIAMINE HCL 100 MG TABLET (FP) PO SCH (22:44)
[2021-08-22] MEDS: traZODone HCL 50 MG TABLET (FP) PO SCH (22:44)
[2021-08-23] MEDS: hydrOXYzine PAMOATE 25 MG CAPSULE (FP) PO SCH ×6 (06:11→22:53)
[2021-08-23] MEDS: diazePAM 5 MG TABLET PO SCH ×4 (06:11→22:53)
[2021-08-23] MEDS: NICOTINE 14 MG/24 HOURS TOPICAL PATCH TD SCH (11:05)
[2021-08-23] MEDS: PRENATAL VITAMINS W/ FOLIC ACID TABLET (FP) PO SCH (11:05)
[2021-08-23] MEDS: THIAMINE HCL 100 MG TABLET (FP) PO SCH (22:52)
[2021-08-23] MEDS: MELATONIN 5 MG TABLETS PO SCH (22:52)
[2021-08-23] MEDS: traZODone HCL 50 MG TABLET (FP) PO SCH (22:52)
[2021-08-24] MEDS: hydrOXYzine PAMOATE 25 MG CAPSULE (FP) PO SCH ×5 (05:57→22:11)
[2021-08-24] MEDS: diazePAM 5 MG TABLET PO SCH ×3 (05:57→22:11)
[2021-08-24] MEDS: NICOTINE 14 MG/24 HOURS TOPICAL PATCH TD SCH (10:40)
[2021-08-24] MEDS: PRENATAL VITAMINS W/ FOLIC ACID TABLET (FP) PO SCH (10:40)
[2021-08-24] MEDS: METHOCARBAMOL 500 MG TABLET PO PRN (10:40)
[2021-08-24] MEDS: IBUPROFEN 400 MG TABLET (FP) PO PRN (10:41)
[2021-08-24] MEDS: THIAMINE HCL 100 MG TABLET (FP) PO SCH (22:11)
[2021-08-24] MEDS: MECLIZINE HCL 12.5 MG TABLET PO PRN (22:11)
[2021-08-24] MEDS: traZODone HCL 50 MG TABLET (FP) PO SCH (22:11)
[2021-08-24] MEDS: MELATONIN 5 MG TABLETS PO SCH (22:12)
[2021-08-25] MEDS: diazePAM 5 MG TABLET PO SCH ×2 (06:25→17:37)
[2021-08-25] MEDS: hydrOXYzine PAMOATE 25 MG CAPSULE (FP) PO SCH ×4 (06:25→17:35)
[2021-08-25] MEDS: NICOTINE 14 MG/24 HOURS TOPICAL PATCH TD SCH (10:22)
[2021-08-25] MEDS: MECLIZINE HCL 12.5 MG TABLET PO PRN (10:23)
[2021-08-25] MEDS: PRENATAL VITAMINS W/ FOLIC ACID TABLET (FP) PO SCH (10:23)
[2021-08-25] MEDS: METHOCARBAMOL 500 MG TABLET PO PRN (10:23)
[2021-08-25 17:08] VITALS: PULSE 93; TEMP 97.3
[2021-08-25 17:13] VITALS: BP 125/68
[2021-08-26] MEDS ORDERED: diazePAM 5 MG TABLET PO ONE (06:00)
== END 2021-08-25 19:00 | disposition home or self-care (01) | DRG 774 ==
LOC: YASAS 06:12 → Y6N 09:58
PROVIDERS: ADMIT Allergy & Immunology; ATTEND Allergy & Immunology
PROC: HZ2ZZZZ Detoxification Services for Substance Abuse Treatment (ICD-10-PCS; principal; 2021-08-22)
DX: F10.230 Alcohol dependence with withdrawal, uncomplicated (principal); F14.20 Cocaine dependence, uncomplicated; F17.210 Nicotine dependence, cigarettes, uncomplicated; F10.280 Alcohol dependence with alcohol-induced anxiety disorder; F10.282 Alcohol dependence with alcohol-induced sleep disorder; F32.A Depression, unspecified; A53.0 Latent syphilis, unspecified as early or late; G47.00 Insomnia, unspecified; E78.5 Hyperlipidemia, unspecified; Z86.19 Personal history of other infectious and parasitic diseases
CPT/HCPCS: 36415; 80053; 84450; 85027; 86593; 86780; 87811; 93005; 93010; C9803-CS; U0003; U0005

== ENCOUNTER 2021-09-28 06:56 | Inpatient (IN) | payer OTHER ==
[2021-09-28 07:15] VITALS: BMI 20.1
[2021-09-28] MEDS ORDERED: MAGNESIUM HYDROX 2400MG/30ML ORAL SUSPENSION 30 ML CUP PO PRN (08:57)
[2021-09-28] MEDS ORDERED: METHOCARBAMOL 500 MG TABLET PO PRN (08:57)
[2021-09-28] MEDS ORDERED: BENZOCAINE/MENTHOL (CHLORASEPTIC ) LOZENGE MM PRN (08:57)
[2021-09-28] MEDS ORDERED: NICOTINE 10 MG CARTRIDGE (INHALER) IH PRN (08:57)
[2021-09-28] MEDS ORDERED: DICYCLOMINE HCL 10 MG CAPSULE PO PRN (08:57)
[2021-09-28] MEDS ORDERED: ONDANSETRON *ODT* 4 MG TABLET SL PRN (08:57)
[2021-09-28] MEDS ORDERED: MAG HYDROX/AL HYDROX/SIMETH 30 ML UNIT-DOSE CUP PO PRN (08:57)
[2021-09-28] MEDS ORDERED: IBUPROFEN 400 MG TABLET (FP) PO PRN (08:57)
[2021-09-28] MEDS ORDERED: LOPERAMIDE HCL 2 MG CAPSULE PO PRN (08:57)
[2021-09-28] MEDS ORDERED: MAGNESIUM CITRATE 300 ML BOTTLE PO PRN (08:57)
[2021-09-28] MEDS ORDERED: ACETAMINOPHEN 325 MG TABLET (FP) PO PRN (08:57)
[2021-09-28] MEDS ORDERED: BISMUTH SUBSALICYLATE 262 MG/15 ML BTL PO PRN (08:57)
[2021-09-28] MEDS: hydrOXYzine PAMOATE 25 MG CAPSULE (FP) PO SCH ×4 (10:12→22:26)
[2021-09-28] MEDS: PRENATAL VITAMINS W/ FOLIC ACID TABLET (FP) PO SCH (10:12)
[2021-09-28] MEDS: ACETAMINOPHEN 325 MG TABLET (FP) PO PRN ×2 (10:13→17:38)
[2021-09-28] MEDS: NICOTINE 14 MG/24 HOURS TOPICAL PATCH TD SCH (10:14)
[2021-09-28] MEDS: ALBUTEROL SO4 HFA INHALER IH SCH ×3 (15:08→22:57)
[2021-09-28 15:11] LABS: CALCIUM 9.2 mg/dL (8.5-10.1); HEMATOCRIT 36.8 % (32.4-45.2); HEMOGLOBIN 12.7 GM/dL (10.7-15.3); MCH 32.6 pg (25.7-33.7); MCHC 34.6 g/dl (32.0-36.0); MEAN CELL VOLUME 94.2 fl (80-96); MEAN PLT VOLUME 7.1 fl (7.5-11.1); PLATELET COUNT 269 10^3/uL (134-434); RDW 14.2 % (11.6-15.6); WHITE BLOOD COUNT 4.3 K/mm3 (4.0-10.0)
[2021-09-28 15:12] LABS: ALBUMIN 3.9 g/dl (3.4-5.0); BLOOD UREA NITROGEN 9.5 mg/dL (7-18)
[2021-09-28 15:15] LABS: CREATININE 0.8 mg/dL (0.55-1.3)
[2021-09-28 15:16] LABS: BILIRUBIN,TOTAL 0.3 mg/dL (0.2-1); TOT PROT 7.2 g/dl (6.4-8.2)
[2021-09-28] MEDS ORDERED: THIAMINE HCL 100 MG TABLET (FP) PO SCH (22:00)
[2021-09-28] MEDS ORDERED: MELATONIN 5 MG TABLETS PO SCH (22:00)
[2021-09-28] MEDS ORDERED: traZODone HCL 50 MG TABLET (FP) PO SCH (22:00)
[2021-09-29] MEDS: ALBUTEROL SO4 HFA INHALER IH SCH ×2 (07:39→10:30)
[2021-09-29] MEDS: hydrOXYzine PAMOATE 25 MG CAPSULE (FP) PO SCH ×3 (07:40→10:32)
[2021-09-29] MEDS ORDERED: MECLIZINE HCL 25 MG TABLET (FP) PO SCH (10:00)
[2021-09-29] MEDS: ACETAMINOPHEN 325 MG TABLET (FP) PO PRN (10:31)
[2021-09-29] MEDS: PRENATAL VITAMINS W/ FOLIC ACID TABLET (FP) PO SCH (10:32)
[2021-09-29] MEDS: NICOTINE 14 MG/24 HOURS TOPICAL PATCH TD SCH (10:33)
[2021-09-29 13:07] VITALS: BP 122/63; PULSE 61; TEMP 97.4
[2021-10-01 00:06] LABS: SARS-CoV-2 NAA Not Detected (Not Detected)
== END 2021-09-29 13:33 | disposition home or self-care (01) | DRG 774 ==
LOC: YASAS 06:56 → Y3N 09:22
PROVIDERS: ADMIT Allergy & Immunology; ATTEND Allergy & Immunology
PROC: HZ2ZZZZ Detoxification Services for Substance Abuse Treatment (ICD-10-PCS; principal; 2021-09-28)
DX: F10.230 Alcohol dependence with withdrawal, uncomplicated (principal); F14.20 Cocaine dependence, uncomplicated; F17.210 Nicotine dependence, cigarettes, uncomplicated; F19.24 Other psychoactive substance dependence with psychoactive substance-induced mood disorder; E78.5 Hyperlipidemia, unspecified; G47.00 Insomnia, unspecified; E05.90 Thyrotoxicosis, unspecified without thyrotoxic crisis or storm
CPT/HCPCS: 36415; 80053; 81025; 85027; 86593; 86780; 87811; C9803-CS; U0003; U0005

== ENCOUNTER 2021-11-24 08:42 | Inpatient (IN) | payer OTHER ==
[2021-11-23 19:18] VITALS: BMI 19.2
[2021-11-23] MEDS: MELATONIN 5 MG TABLETS PO SCH (22:22)
[2021-11-23] MEDS: THIAMINE HCL 100 MG TABLET (FP) PO SCH (22:22)
[~2021-11-24 08:42] MED LIST changes: +ACETAMINOPHEN 325 MG TABLET (FP) PO PRN; +BENZOCAINE/MENTHOL (CHLORASEPTIC ) LOZENGE MM PRN; +BISMUTH SUBSALICYLATE 524 MG/30 ML PO PRN; +DICYCLOMINE HCL 10 MG CAPSULE PO PRN; +IBUPROFEN 400 MG TABLET (FP) PO PRN; +MECLIZINE HCL 25 MG TABLET (FP) PO PRN; -NICOTINE 10 MG CARTRIDGE (INHALER) IH PRN; +NICOTINE POLACRILEX 2 MG GUM BUC PRN; +ONDANSETRON *ODT* 4 MG TABLET SL PRN; +P-EPHED 60MG/TRIPROLIDI 2.5MG TABLET PO PRN
[2021-11-24 10:15] LABS: HEMATOCRIT 36.6 % (32.4-45.2); HEMOGLOBIN 12.6 GM/dL (10.7-15.3); MCHC 34.3 g/dl (32.0-36.0); MEAN CELL VOLUME 96.1 fl (80-96); MEAN PLT VOLUME 7.3 fl (7.5-11.1); PLATELET COUNT 312 10^3/uL (134-434); RBC 3.81 M/mm3 (3.60-5.2); RDW 13.1 % (11.6-15.6); WHITE BLOOD COUNT 3.9 K/mm3 (4.0-10.0)
[2021-11-24 10:34] LABS: ALBUMIN 3.5 g/dl (3.4-5.0); BLOOD UREA NITROGEN 12.9 mg/dL (7-18); CALCIUM 9.4 mg/dL (8.5-10.1)
[2021-11-24 10:36] LABS: CREATININE 0.9 mg/dL (0.55-1.3)
[2021-11-24 10:38] LABS: BILIRUBIN,TOTAL 0.7 mg/dL (0.2-1); TOT PROT 6.7 g/dl (6.4-8.2)
[2021-11-24] MEDS ORDERED: IBUPROFEN 600 MG TABLET (FP) PO ONE (11:09)
[2021-11-24] MEDS: IBUPROFEN 600 MG TABLET (FP) PO PRN (11:10)
[2021-11-24] MEDS ORDERED: diazePAM 5 MG TABLET ONE (14:03)
[2021-11-24] MEDS: diazePAM 5 MG TABLET PO PRN ×3 (14:04→23:15)
[2021-11-24] MEDS: PRENATAL VITAMINS W/ FOLIC ACID TABLET (FP) PO SCH (15:30)
[2021-11-24] MEDS: hydrOXYzine PAMOATE 25 MG CAPSULE (FP) PO PRN ×2 (17:57→23:15)
[2021-11-24] MEDS: THIAMINE HCL 100 MG TABLET (FP) PO SCH (23:14)
[2021-11-24] MEDS: MELATONIN 5 MG TABLETS PO SCH (23:14)
[2021-11-24] MEDS: traZODone HCL 50 MG TABLET (FP) PO SCH (23:15)
[2021-11-25] MEDS: PRENATAL VITAMINS W/ FOLIC ACID TABLET (FP) PO SCH (10:23)
[2021-11-25] MEDS: METHOCARBAMOL 500 MG TABLET PO PRN ×2 (10:23→17:40)
[2021-11-25] MEDS: hydrOXYzine PAMOATE 25 MG CAPSULE (FP) PO PRN ×3 (10:23→22:41)
[2021-11-25] MEDS: diazePAM 5 MG TABLET PO PRN ×2 (17:40→22:41)
[2021-11-25] MEDS: IBUPROFEN 600 MG TABLET (FP) PO PRN (17:40)
[2021-11-25] MEDS: traZODone HCL 50 MG TABLET (FP) PO SCH (22:00)
[2021-11-25] MEDS: MELATONIN 5 MG TABLETS PO SCH (22:41)
[2021-11-25] MEDS: THIAMINE HCL 100 MG TABLET (FP) PO SCH (22:41)
[2021-11-26] MEDS: hydrOXYzine PAMOATE 25 MG CAPSULE (FP) PO PRN (06:05)
[2021-11-26] MEDS: diazePAM 5 MG TABLET PO PRN (06:05)
[2021-11-26 09:31] VITALS: BP 100/60; PULSE 69; TEMP 98
== END 2021-11-26 10:40 | disposition home or self-care (01) | DRG 774 ==
LOC: YASAS 08:42 → Y6N 14:54
PROVIDERS: ADMIT Allergy & Immunology; ATTEND Surgery
PROC: HZ2ZZZZ Detoxification Services for Substance Abuse Treatment (ICD-10-PCS; principal; 2021-11-24)
DX: F10.230 Alcohol dependence with withdrawal, uncomplicated (principal); F14.20 Cocaine dependence, uncomplicated; F17.210 Nicotine dependence, cigarettes, uncomplicated; F32.A Depression, unspecified; J45.20 Mild intermittent asthma, uncomplicated; R76.8 Other specified abnormal immunological findings in serum; E05.90 Thyrotoxicosis, unspecified without thyrotoxic crisis or storm; G47.00 Insomnia, unspecified; Z91.038 Other insect allergy status; Z86.19 Personal history of other infectious and parasitic diseases; Z56.0 Unemployment, unspecified
CPT/HCPCS: 36415; 80053; 85027; 86593; 86780; C9803-CS; U0003; U0005

== ENCOUNTER 2021-12-04 12:56 | Emergency (ER) | payer OTHER ==
[2021-12-04 13:45] VITALS: BP 126/78; PULSE 70; TEMP 98.2; BMI 20.1
== END 2021-12-04 18:45 | disposition home or self-care (01) ==
LOC: JER 12:56
DX: Z59.1 Inadequate housing (principal)
CPT/HCPCS: 99281-25

== ENCOUNTER 2022-01-04 07:16 | Inpatient (IN) | payer OTHER ==
[2022-01-04 11:18] VITALS: BMI 19.2
[2022-01-04] MEDS ORDERED: ACETAMINOPHEN 325 MG TABLET (FP) PO PRN ×2 (11:58)
[2022-01-04] MEDS ORDERED: IBUPROFEN 400 MG TABLET (FP) PO PRN (11:58)
[2022-01-04] MEDS ORDERED: MAG HYDROX/AL HYDROX/SIMETH 30 ML UNIT-DOSE CUP PO PRN (11:58)
[2022-01-04] MEDS ORDERED: BENZOCAINE/MENTHOL (CHLORASEPTIC ) LOZENGE MM PRN (11:58)
[2022-01-04] MEDS ORDERED: DICYCLOMINE HCL 10 MG CAPSULE PO PRN (11:58)
[2022-01-04] MEDS ORDERED: MAGNESIUM CITRATE 300 ML BOTTLE PO PRN (11:58)
[2022-01-04] MEDS ORDERED: NICOTINE 10 MG CARTRIDGE (INHALER) IH PRN (11:58)
[2022-01-04] MEDS ORDERED: BISMUTH SUBSALICYLATE 262 MG/15 ML BTL PO PRN (11:58)
[2022-01-04] MEDS ORDERED: ONDANSETRON *ODT* 4 MG TABLET SL PRN (11:58)
[2022-01-04] MEDS ORDERED: NICOTINE POLACRILEX 4 MG GUM BUC PRN (11:58)
[2022-01-04] MEDS ORDERED: MAGNESIUM HYDROX 2400MG/30ML ORAL SUSPENSION 30 ML CUP PO PRN (11:58)
[2022-01-04] MEDS ORDERED: LOPERAMIDE HCL 2 MG CAPSULE PO PRN (11:58)
[2022-01-04] MEDS: PRENATAL VITAMINS W/ FOLIC ACID TABLET (FP) PO SCH (13:11)
[2022-01-04] MEDS: METHOCARBAMOL 500 MG TABLET PO PRN ×2 (13:11→22:31)
[2022-01-04] MEDS: diazePAM 5 MG TABLET PO PRN (13:12)
[2022-01-04] MEDS: hydrOXYzine PAMOATE 25 MG CAPSULE (FP) PO SCH ×3 (13:14→22:31)
[2022-01-04 14:04] LABS: HEMATOCRIT 37.3 % (32.4-45.2); HEMOGLOBIN 12.6 GM/dL (10.7-15.3); MCHC 33.8 g/dl (32.0-36.0); MEAN CELL VOLUME 97.7 fl (80-96); MEAN PLT VOLUME 7.1 fl (7.5-11.1); PLATELET COUNT 333 10^3/uL (134-434); RBC 3.81 M/mm3 (3.60-5.2); RDW 13.4 % (11.6-15.6); WHITE BLOOD COUNT 4.6 K/mm3 (4.0-10.0)
[2022-01-04 14:09] LABS: CALCIUM 9.2 mg/dL (8.5-10.1)
[2022-01-04 14:10] LABS: ALBUMIN 3.4 g/dl (3.4-5.0); BLOOD UREA NITROGEN 15.6 mg/dL (7-18)
[2022-01-04 14:12] LABS: CREATININE 0.9 mg/dL (0.55-1.3)
[2022-01-04 14:15] LABS: BILIRUBIN,TOTAL 0.5 mg/dL (0.2-1); TOT PROT 6.8 g/dl (6.4-8.2)
[2022-01-04] MEDS: diazePAM 5 MG TABLET PO SCH ×2 (17:57→22:31)
[2022-01-04] MEDS: THIAMINE HCL 100 MG TABLET (FP) PO SCH (22:31)
[2022-01-04] MEDS: traZODone HCL 50 MG TABLET (FP) PO SCH (22:31)
[2022-01-04] MEDS: MELATONIN 5 MG TABLETS PO SCH (22:31)
[2022-01-05] MEDS: hydrOXYzine PAMOATE 25 MG CAPSULE (FP) PO SCH ×5 (06:10→22:22)
[2022-01-05] MEDS: diazePAM 5 MG TABLET PO SCH ×4 (06:10→22:23)
[2022-01-05] MEDS: METHOCARBAMOL 500 MG TABLET PO PRN (11:06)
[2022-01-05] MEDS: PRENATAL VITAMINS W/ FOLIC ACID TABLET (FP) PO SCH (11:06)
[2022-01-05] MEDS: THIAMINE HCL 100 MG TABLET (FP) PO SCH (22:22)
[2022-01-05] MEDS: MELATONIN 5 MG TABLETS PO SCH (22:22)
[2022-01-05] MEDS: traZODone HCL 50 MG TABLET (FP) PO SCH (22:22)
[2022-01-05] MEDS: IBUPROFEN 600 MG TABLET (FP) PO PRN (22:25)
[2022-01-06] MEDS: diazePAM 5 MG TABLET PO SCH ×2 (06:01→14:19)
[2022-01-06] MEDS: hydrOXYzine PAMOATE 25 MG CAPSULE (FP) PO SCH ×4 (06:01→17:45)
[2022-01-06] MEDS: PRENATAL VITAMINS W/ FOLIC ACID TABLET (FP) PO SCH (10:22)
[2022-01-06] MEDS: diazePAM 5 MG TABLET PO PRN ×2 (10:23→17:45)
[2022-01-06] MEDS: METHOCARBAMOL 500 MG TABLET PO PRN (17:45)
[2022-01-06] MEDS: IBUPROFEN 600 MG TABLET (FP) PO PRN (17:46)
[2022-01-07] MEDS: MELATONIN 5 MG TABLETS PO SCH (00:25)
[2022-01-07] MEDS: diazePAM 5 MG TABLET PO SCH (00:25)
[2022-01-07] MEDS: traZODone HCL 50 MG TABLET (FP) PO SCH (00:25)
[2022-01-07] MEDS: THIAMINE HCL 100 MG TABLET (FP) PO SCH (00:26)
[2022-01-07] MEDS: hydrOXYzine PAMOATE 25 MG CAPSULE (FP) PO SCH ×3 (00:26→10:55)
[2022-01-07] MEDS ORDERED: diazePAM 5 MG TABLET PO SCH (06:00)
[2022-01-07] MEDS: PRENATAL VITAMINS W/ FOLIC ACID TABLET (FP) PO SCH (10:15)
[2022-01-07] MEDS ORDERED: MECLIZINE HCL 25 MG TABLET (FP) PO PRN (10:32)
[2022-01-07] MEDS ORDERED: ALBUTEROL SO4 HFA INHALER IH PRN (10:33)
[2022-01-07 12:48] VITALS: BP 130/97; PULSE 71; RESP 16; TEMP 97.8
[2022-01-08] MEDS ORDERED: diazePAM 5 MG TABLET PO ONE (06:00)
== END 2022-01-07 13:40 | disposition home or self-care (01) | DRG 774 ==
LOC: YASAS 07:16 → SUATTDRO 07:16 → Y6N 11:58
PROVIDERS: ADMIT Allergy & Immunology; ATTEND Surgery
PROC: HZ2ZZZZ Detoxification Services for Substance Abuse Treatment (ICD-10-PCS; principal; 2022-01-04)
DX: F10.230 Alcohol dependence with withdrawal, uncomplicated (principal); F14.20 Cocaine dependence, uncomplicated; F17.210 Nicotine dependence, cigarettes, uncomplicated; F32.9 Major depressive disorder, single episode, unspecified; F19.24 Other psychoactive substance dependence with psychoactive substance-induced mood disorder; F19.282 Other psychoactive substance dependence with psychoactive substance-induced sleep disorder; F19.280 Other psychoactive substance dependence with psychoactive substance-induced anxiety disorder; J45.20 Mild intermittent asthma, uncomplicated; E05.90 Thyrotoxicosis, unspecified without thyrotoxic crisis or storm; E78.5 Hyperlipidemia, unspecified; Z86.11 Personal history of tuberculosis; Z56.0 Unemployment, unspecified
CPT/HCPCS: 36415; 80053; 85027; 86593; 86780; 87811; C9803-CS; U0003; U0005

== ENCOUNTER 2022-01-28 15:55 | Inpatient (IN) | payer OTHER ==
[2022-01-28 17:07] VITALS: BMI 19.2
[2022-01-28] MEDS ORDERED: NICOTINE 10 MG CARTRIDGE (INHALER) IH PRN (19:33)
[2022-01-28] MEDS ORDERED: BENZOCAINE/MENTHOL (CHLORASEPTIC ) LOZENGE MM PRN (19:33)
[2022-01-28] MEDS ORDERED: LOPERAMIDE HCL 2 MG CAPSULE PO PRN (19:33)
[2022-01-28] MEDS ORDERED: BISMUTH SUBSALICYLATE 524 MG/30 ML PO PRN (19:33)
[2022-01-28] MEDS ORDERED: ACETAMINOPHEN 325 MG TABLET (FP) PO PRN (19:33)
[2022-01-28] MEDS ORDERED: ONDANSETRON *ODT* 4 MG TABLET SL PRN (19:33)
[2022-01-28] MEDS ORDERED: DICYCLOMINE HCL 10 MG CAPSULE PO PRN (19:33)
[2022-01-28] MEDS ORDERED: MAGNESIUM CITRATE 300 ML BOTTLE PO PRN (19:33)
[2022-01-28] MEDS ORDERED: MAGNESIUM HYDROX 2400MG/30ML ORAL SUSPENSION 30 ML CUP PO PRN (19:33)
[2022-01-28] MEDS ORDERED: MAG HYDROX/AL HYDROX/SIMETH 30 ML UNIT-DOSE CUP PO PRN (19:33)
[2022-01-28] MEDS: IBUPROFEN 400 MG TABLET (FP) PO PRN (20:32)
[2022-01-28] MEDS: MELATONIN 5 MG TABLETS PO SCH (22:47)
[2022-01-28] MEDS: THIAMINE HCL 100 MG TABLET (FP) PO SCH (22:47)
[2022-01-28] MEDS: hydrOXYzine PAMOATE 25 MG CAPSULE (FP) PO PRN (22:47)
[2022-01-28] MEDS: diazePAM 5 MG TABLET PO SCH (22:47)
[2022-01-28] MEDS: METHOCARBAMOL 500 MG TABLET PO PRN (22:48)
[2022-01-29] MEDS: diazePAM 5 MG TABLET PO SCH ×4 (06:06→22:51)
[2022-01-29] MEDS: hydrOXYzine PAMOATE 25 MG CAPSULE (FP) PO PRN ×3 (06:06→22:52)
[2022-01-29] MEDS: IBUPROFEN 600 MG TABLET (FP) PO PRN ×2 (06:07→17:51)
[2022-01-29] MEDS: PRENATAL VITAMINS W/ FOLIC ACID TABLET (FP) PO SCH (10:33)
[2022-01-29] MEDS: ACETAMINOPHEN 325 MG TABLET (FP) PO PRN (10:33)
[2022-01-29] MEDS: NICOTINE 7 MG/24 HOURS TOPICAL PATCH TD SCH (11:44)
[2022-01-29 12:47] LABS: HEMATOCRIT 34.3 % (32.4-45.2); HEMOGLOBIN 11.7 GM/dL (10.7-15.3); MCH 33.2 pg (25.7-33.7); MEAN CELL VOLUME 97.5 fl (80-96); MEAN PLT VOLUME 7.3 fl (7.5-11.1); PLATELET COUNT 320 10^3/uL (134-434); RBC 3.52 M/mm3 (3.60-5.2); RDW 12.6 % (11.6-15.6); WHITE BLOOD COUNT 2.8 K/mm3 (4.0-10.0)
[2022-01-29 13:25] LABS: BLOOD UREA NITROGEN 17.7 mg/dL (7-18)
[2022-01-29 13:28] LABS: CREATININE 0.8 mg/dL (0.55-1.3)
[2022-01-29 13:30] LABS: BILIRUBIN,TOTAL 0.8 mg/dL (0.2-1); TOT PROT 5.8 g/dl (6.4-8.2)
[2022-01-29] MEDS: METHOCARBAMOL 500 MG TABLET PO PRN (17:13)
[2022-01-29] MEDS: THIAMINE HCL 100 MG TABLET (FP) PO SCH (22:51)
[2022-01-29] MEDS: MELATONIN 5 MG TABLETS PO SCH (22:51)
[2022-01-29] MEDS: traZODone HCL 50 MG TABLET (FP) PO SCH (22:51)
[2022-01-30] MEDS: diazePAM 5 MG TABLET PO SCH ×3 (06:06→22:40)
[2022-01-30] MEDS: IBUPROFEN 400 MG TABLET (FP) PO PRN (06:10)
[2022-01-30] MEDS: IBUPROFEN 600 MG TABLET (FP) PO PRN (10:35)
[2022-01-30] MEDS: PRENATAL VITAMINS W/ FOLIC ACID TABLET (FP) PO SCH (10:35)
[2022-01-30] MEDS: NICOTINE 7 MG/24 HOURS TOPICAL PATCH TD SCH (11:18)
[2022-01-30] MEDS: METHOCARBAMOL 500 MG TABLET PO PRN (17:55)
[2022-01-30] MEDS: hydrOXYzine PAMOATE 25 MG CAPSULE (FP) PO PRN ×2 (17:55→22:40)
[2022-01-30] MEDS: diazePAM 5 MG TABLET PO PRN (17:55)
[2022-01-30] MEDS: ACETAMINOPHEN 325 MG TABLET (FP) PO PRN (17:57)
[2022-01-30] MEDS: traZODone HCL 50 MG TABLET (FP) PO SCH (22:14)
[2022-01-30] MEDS: MELATONIN 5 MG TABLETS PO SCH (22:40)
[2022-01-30] MEDS: THIAMINE HCL 100 MG TABLET (FP) PO SCH (22:40)
[2022-01-31] MEDS: diazePAM 5 MG TABLET PO SCH ×2 (05:17→18:23)
[2022-01-31] MEDS: IBUPROFEN 600 MG TABLET (FP) PO PRN ×2 (07:59→22:37)
[2022-01-31] MEDS: ACETAMINOPHEN 325 MG TABLET (FP) PO PRN (10:11)
[2022-01-31] MEDS: diazePAM 5 MG TABLET PO PRN (10:12)
[2022-01-31] MEDS: METHOCARBAMOL 500 MG TABLET PO PRN (10:12)
[2022-01-31] MEDS: PRENATAL VITAMINS W/ FOLIC ACID TABLET (FP) PO SCH (10:15)
[2022-01-31] MEDS: NICOTINE 7 MG/24 HOURS TOPICAL PATCH TD SCH (10:15)
[2022-01-31 11:54] LABS: BASO % 0.4 % (0-2.0); EOS % 3.7 % (0-4.5); HEMOGLOBIN 12.7 GM/dL (10.7-15.3); LYMPH % 46.6 % (8-40); MCH 33.9 pg (25.7-33.7); MCHC 34.3 g/dl (32.0-36.0); MEAN CELL VOLUME 99.1 fl (80-96); MEAN PLT VOLUME 7.3 fl (7.5-11.1); MONO % 8.3 % (3.8-10.2); PLATELET COUNT 321 10^3/uL (134-434); RBC 3.73 M/mm3 (3.60-5.2); RDW 12.9 % (11.6-15.6); WHITE BLOOD COUNT 4.1 K/mm3 (4.0-10.0)
[2022-01-31] MEDS ORDERED: cloNIDine HCL 0.1 MG TABLET PO PRN (14:40)
[2022-01-31] MEDS ORDERED: ALBUTEROL SO4 HFA INHALER IH PRN (14:40)
[2022-01-31] MEDS: traZODone HCL 50 MG TABLET (FP) PO SCH (22:37)
[2022-01-31] MEDS: MELATONIN 5 MG TABLETS PO SCH (22:37)
[2022-01-31] MEDS: THIAMINE HCL 100 MG TABLET (FP) PO SCH (22:37)
[2022-02-01] MEDS: hydrOXYzine PAMOATE 25 MG CAPSULE (FP) PO PRN (05:46)
[2022-02-01] MEDS ORDERED: diazePAM 5 MG TABLET PO ONE (06:00)
[2022-02-01 06:56] VITALS: PULSE 68
[2022-02-01 09:24] VITALS: BP 113/79; RESP 17; TEMP 98.1
[2022-02-01] MEDS: PRENATAL VITAMINS W/ FOLIC ACID TABLET (FP) PO SCH (09:34)
[2022-02-01] MEDS: NICOTINE 7 MG/24 HOURS TOPICAL PATCH TD SCH (09:34)
[2022-02-01] MEDS: IBUPROFEN 400 MG TABLET (FP) PO PRN (09:34)
== END 2022-02-01 10:25 | disposition home or self-care (01) | DRG 774 ==
LOC: YASAS 15:55 → Y6N 20:02
PROVIDERS: ADMIT Allergy & Immunology; ATTEND Surgery
PROC: HZ2ZZZZ Detoxification Services for Substance Abuse Treatment (ICD-10-PCS; principal; 2022-01-28)
DX: F10.230 Alcohol dependence with withdrawal, uncomplicated (principal); F14.20 Cocaine dependence, uncomplicated; F17.210 Nicotine dependence, cigarettes, uncomplicated; F32.A Depression, unspecified; E78.5 Hyperlipidemia, unspecified; J45.20 Mild intermittent asthma, uncomplicated; M19.90 Unspecified osteoarthritis, unspecified site; Z91.018 Allergy to other foods; Z91.038 Other insect allergy status; Z56.0 Unemployment, unspecified; Z59.01 Sheltered homelessness
CPT/HCPCS: 36415; 80053; 85025; 85027; 86593; 86780; 87811; C9803-CS; U0003; U0005

== ENCOUNTER 2022-06-25 11:54 | Inpatient (IN) | payer OTHER ==
[2022-06-25 12:12] VITALS: BMI 18.6
[2022-06-25] MEDS ORDERED: MAGNESIUM HYDROX 2400MG/30ML ORAL SUSPENSION 30 ML CUP PO PRN (12:42)
[2022-06-25] MEDS ORDERED: LOPERAMIDE HCL 2 MG CAPSULE PO PRN (12:42)
[2022-06-25] MEDS ORDERED: METHOCARBAMOL 500 MG TABLET PO PRN (12:42)
[2022-06-25] MEDS ORDERED: NALOXONE HCL (KLOXXADO) 8 MG SPRAY NS PRN (12:42)
[2022-06-25] MEDS ORDERED: DICYCLOMINE HCL 10 MG CAPSULE PO PRN (12:42)
[2022-06-25] MEDS ORDERED: IBUPROFEN 400 MG TABLET (FP) PO PRN (12:42)
[2022-06-25] MEDS ORDERED: ONDANSETRON *ODT* 4 MG TABLET SL PRN (12:42)
[2022-06-25] MEDS ORDERED: BENZOCAINE/MENTHOL (CHLORASEPTIC ) LOZENGE MM PRN (12:42)
[2022-06-25] MEDS ORDERED: diazePAM 5 MG TABLET PO PRN (12:42)
[2022-06-25] MEDS ORDERED: POLYETHYLENE GLYCOL (HEALTHYLAX) 3350 17 GM PACKET PO PRN (12:42)
[2022-06-25] MEDS ORDERED: NICOTINE 10 MG CARTRIDGE (INHALER) IH PRN (12:42)
[2022-06-25] MEDS ORDERED: MAG HYDROX/AL HYDROX/SIMETH 30 ML UNIT-DOSE CUP PO PRN (12:42)
[2022-06-25] MEDS ORDERED: IBUPROFEN 600 MG TABLET (FP) PO PRN (12:42)
[2022-06-25] MEDS ORDERED: BISMUTH SUBSALICYLATE 524 MG/30 ML PO PRN (12:42)
[2022-06-25] MEDS ORDERED: ACETAMINOPHEN 325 MG TABLET (FP) PO PRN ×2 (12:42)
[2022-06-25 16:37] LABS: HEMATOCRIT 40.8 % (32.4-45.2); HEMOGLOBIN 13.8 GM/dL (10.7-15.3); MCH 33.3 pg (25.7-33.7); MCHC 33.8 g/dl (32.0-36.0); MEAN CELL VOLUME 98.7 fl (80-96); MEAN PLT VOLUME 7.2 fl (7.5-11.1); PLATELET COUNT 343 10^3/uL (134-434); RBC 4.14 M/mm3 (3.60-5.2); RDW 13.8 % (11.6-15.6); WHITE BLOOD COUNT 3.9 K/mm3 (4.0-10.0)
[2022-06-25 16:39] LABS: CALCIUM 9.8 mg/dL (8.5-10.1)
[2022-06-25 16:40] LABS: ALBUMIN 3.9 g/dl (3.4-5.0); BLOOD UREA NITROGEN 14.4 mg/dL (7-18)
[2022-06-25 16:43] LABS: CREATININE 0.9 mg/dL (0.55-1.3)
[2022-06-25 16:44] LABS: BILIRUBIN,TOTAL 0.4 mg/dL (0.2-1); TOT PROT 7.6 g/dl (6.4-8.2)
[2022-06-25] MEDS: diazePAM 5 MG TABLET PO SCH ×2 (17:56→22:07)
[2022-06-25] MEDS: MELATONIN 5 MG TABLETS PO SCH (22:06)
[2022-06-25] MEDS: THIAMINE HCL 100 MG TABLET (FP) PO SCH (22:06)
[2022-06-26] MEDS: diazePAM 5 MG TABLET PO SCH ×4 (05:26→22:37)
[2022-06-26] MEDS ORDERED: ALBUTEROL SO4 HFA INHALER IH PRN (08:43)
[2022-06-26] MEDS: PRENATAL VITAMINS W/ FOLIC ACID TABLET (FP) PO SCH (10:12)
[2022-06-26] MEDS ORDERED: CLOTRIMAZOLE 1% VAGINAL CREAM WITH APPLICATOR 45 GM TUBE VG SCH (22:00)
[2022-06-26] MEDS: THIAMINE HCL 100 MG TABLET (FP) PO SCH (22:37)
[2022-06-26] MEDS: MELATONIN 5 MG TABLETS PO SCH (22:37)
[2022-06-27] MEDS ORDERED: diazePAM 5 MG TABLET PO SCH (06:00)
[2022-06-27] MEDS: PRENATAL VITAMINS W/ FOLIC ACID TABLET (FP) PO SCH (10:11)
[2022-06-27 12:55] VITALS: BP 129/65; PULSE 76; RESP 16; TEMP 97.3
[2022-06-28] MEDS ORDERED: diazePAM 5 MG TABLET PO SCH (06:00)
[2022-06-29] MEDS ORDERED: diazePAM 5 MG TABLET PO ONE (06:00)
== END 2022-06-27 13:02 | disposition left against medical advice (07) | DRG 770 ==
LOC: YASAS 11:54 → Y6N 13:05
PROVIDERS: ADMIT Allergy & Immunology; ATTEND Family Medicine
PROC: HZ2ZZZZ Detoxification Services for Substance Abuse Treatment (ICD-10-PCS; principal; 2022-06-25)
DX: F10.230 Alcohol dependence with withdrawal, uncomplicated (principal); F14.20 Cocaine dependence, uncomplicated; F17.210 Nicotine dependence, cigarettes, uncomplicated; F19.282 Other psychoactive substance dependence with psychoactive substance-induced sleep disorder; J45.20 Mild intermittent asthma, uncomplicated; E03.9 Hypothyroidism, unspecified; N89.8 Other specified noninflammatory disorders of vagina; Z86.19 Personal history of other infectious and parasitic diseases; Z86.2 Personal history of diseases of the blood and blood-forming organs and certain disorders involving the immune mechanism
CPT/HCPCS: 36415; 80053; 85027; 86593; 86780; C9803-CS; U0003; U0005

== ENCOUNTER 2022-08-06 18:06 | Inpatient (IN) | payer OTHER ==
[2022-08-06 18:45] VITALS: BMI 19.0
[2022-08-06] MEDS ORDERED: DICYCLOMINE HCL 10 MG CAPSULE PO PRN (22:39)
[2022-08-06] MEDS ORDERED: ACETAMINOPHEN 325 MG TABLET (FP) PO PRN (22:39)
[2022-08-06] MEDS ORDERED: POLYETHYLENE GLYCOL (HEALTHYLAX) 3350 17 GM PACKET PO PRN (22:39)
[2022-08-06] MEDS ORDERED: NICOTINE POLACRILEX 2 MG GUM BUC PRN (22:39)
[2022-08-06] MEDS ORDERED: BENZOCAINE/MENTHOL (CHLORASEPTIC ) LOZENGE MM PRN (22:39)
[2022-08-06] MEDS ORDERED: NALOXONE HCL (KLOXXADO) 8 MG SPRAY NS PRN (22:39)
[2022-08-06] MEDS ORDERED: IBUPROFEN 400 MG TABLET (FP) PO PRN (22:39)
[2022-08-06] MEDS ORDERED: MAGNESIUM HYDROX 2400MG/30ML ORAL SUSPENSION 30 ML CUP PO PRN (22:39)
[2022-08-06] MEDS ORDERED: MAG HYDROX/AL HYDROX/SIMETH 30 ML UNIT-DOSE CUP PO PRN (22:39)
[2022-08-06] MEDS ORDERED: BISMUTH SUBSALICYLATE 524 MG/30 ML PO PRN (22:39)
[2022-08-06] MEDS ORDERED: ONDANSETRON *ODT* 4 MG TABLET SL PRN (22:39)
[2022-08-06] MEDS ORDERED: LOPERAMIDE HCL 2 MG CAPSULE PO PRN (22:39)
[2022-08-07] MEDS: IBUPROFEN 600 MG TABLET (FP) PO PRN (01:10)
[2022-08-07] MEDS: METHOCARBAMOL 500 MG TABLET PO PRN (01:10)
[2022-08-07] MEDS ORDERED: diazePAM 5 MG TABLET PO PRN (10:09)
[2022-08-07] MEDS: NICOTINE 14 MG/24 HOURS TOPICAL PATCH TD SCH (10:36)
[2022-08-07] MEDS: diazePAM 5 MG TABLET PO SCH ×3 (10:47→22:17)
[2022-08-07] MEDS: PRENATAL VITAMINS W/ FOLIC ACID TABLET (FP) PO SCH (10:48)
[2022-08-07 11:23] LABS: HEMATOCRIT 36.9 % (32.4-45.2); HEMOGLOBIN 12.4 GM/dL (10.7-15.3); MCH 32.8 pg (25.7-33.7); MCHC 33.7 g/dl (32.0-36.0); MEAN CELL VOLUME 97.4 fl (80-96); PLATELET COUNT 285 10^3/uL (134-434); RBC 3.79 M/mm3 (3.60-5.2); RDW 13.2 % (11.6-15.6); WHITE BLOOD COUNT 3.3 K/mm3 (4.0-10.0)
[2022-08-07 11:25] LABS: CALCIUM 8.7 mg/dL (8.5-10.1)
[2022-08-07 11:26] LABS: ALBUMIN 3.1 g/dl (3.4-5.0); BLOOD UREA NITROGEN 21.1 mg/dL (7-18)
[2022-08-07 11:30] LABS: TOT PROT 6.2 g/dl (6.4-8.2)
[2022-08-07 11:31] LABS: BILIRUBIN,TOTAL 0.3 mg/dL (0.2-1)
[2022-08-07 13:08] LABS: HIV INTERPRETATION NEGATIVE (NEGATIVE)
[2022-08-07] MEDS: MELATONIN 5 MG TABLETS PO SCH (22:17)
[2022-08-07] MEDS: THIAMINE HCL 100 MG TABLET (FP) PO SCH (22:17)
[2022-08-07] MEDS: traZODone HCL 50 MG TABLET (FP) PO SCH (22:17)
[2022-08-08] MEDS: diazePAM 5 MG TABLET PO SCH ×4 (05:49→22:08)
[2022-08-08] MEDS: METHOCARBAMOL 500 MG TABLET PO PRN (10:21)
[2022-08-08] MEDS: PRENATAL VITAMINS W/ FOLIC ACID TABLET (FP) PO SCH (10:21)
[2022-08-08] MEDS: NICOTINE 14 MG/24 HOURS TOPICAL PATCH TD SCH (10:21)
[2022-08-08] MEDS: IBUPROFEN 600 MG TABLET (FP) PO PRN ×2 (10:22→17:18)
[2022-08-08] MEDS: MELATONIN 5 MG TABLETS PO SCH (22:07)
[2022-08-08] MEDS: traZODone HCL 50 MG TABLET (FP) PO SCH (22:08)
[2022-08-08] MEDS: THIAMINE HCL 100 MG TABLET (FP) PO SCH (22:08)
[2022-08-08] MEDS: ACETAMINOPHEN 325 MG TABLET (FP) PO PRN (22:09)
[2022-08-09] MEDS: diazePAM 5 MG TABLET PO SCH ×2 (06:11→13:50)
[2022-08-09] MEDS: ACETAMINOPHEN 325 MG TABLET (FP) PO PRN (10:38)
[2022-08-09] MEDS: NICOTINE 14 MG/24 HOURS TOPICAL PATCH TD SCH (10:39)
[2022-08-09] MEDS: PRENATAL VITAMINS W/ FOLIC ACID TABLET (FP) PO SCH (10:39)
[2022-08-09 13:08] VITALS: TEMP 96.9
[2022-08-09 17:31] VITALS: BP 117/63; PULSE 74; RESP 16
[2022-08-10] MEDS ORDERED: diazePAM 5 MG TABLET PO SCH (06:00)
[2022-08-11] MEDS ORDERED: diazePAM 5 MG TABLET PO ONE (06:00)
== END 2022-08-09 18:10 | disposition left against medical advice (07) | DRG 770 ==
LOC: YASAS 18:06 → Y3N 23:26
PROVIDERS: ADMIT Allergy & Immunology; ATTEND Surgery
PROC: HZ2ZZZZ Detoxification Services for Substance Abuse Treatment (ICD-10-PCS; principal; 2022-08-06)
DX: F10.230 Alcohol dependence with withdrawal, uncomplicated (principal); F14.20 Cocaine dependence, uncomplicated; F17.210 Nicotine dependence, cigarettes, uncomplicated; F19.24 Other psychoactive substance dependence with psychoactive substance-induced mood disorder; F32.A Depression, unspecified; E05.90 Thyrotoxicosis, unspecified without thyrotoxic crisis or storm; G47.00 Insomnia, unspecified; R76.8 Other specified abnormal immunological findings in serum; Z86.19 Personal history of other infectious and parasitic diseases; Z91.199 Patient's noncompliance with other medical treatment and regimen due to unspecified reason
CPT/HCPCS: 36415; 80053; 85027; 86593; 86780; 87389; 87811; 93005; 93010; C9803-CS; U0003; U0005